=== PATIENT | male | born 1935 | race Caucasian/White ===

== ENCOUNTER 2018-12-27 16:54 | Observation (INO) | payer OTHER ==
[2018-12-27] MEDS ORDERED: NA CHLORIDE 0.9% 500 ML ONE ×2 (17:48→21:25)
[2018-12-27 18:33] LABS: Absolute Lymphocytes (CBC) 0.5 K/uL (0.7-4.9); Basophils % 0.2 % (0-1.3); Hematocrit 44.6 % (39.6-49.0); Lymphocytes % 8.2 % (15.3-44.8); MPV 8.8 fL (7.6-11.3); RBC Red Blood Cell Count 4.93 M/uL (4.33-5.43)
[2018-12-27 18:56] LABS: Albumin 3.6 g/dL (3.4-5.0); Bilirubin Direct 0.2 mg/dL (0-0.2); Bilirubin Total 0.6 mg/dL (0.2-1.0); Potassium 4.2 mmol/L (3.5-5.1); Protein, Total 7.8 g/dL (6.4-8.2)
--- NOTE | 2018-12-27 19:07 | RAD REPORT ---
EXAM DESCRIPTION: RAD - Chest Single View - 12/27/2018 6:27 pm CLINICAL HISTORY: Cough, COPD COMPARISON: June 2018 TECHNIQUE: AP portable chest image was obtained 1813 hours . FINDINGS: No focal mass or consolidation. Chronic interstitial pattern matches comparison. This coul d potentially mask early interstitial edema or infiltrate. Heart and vasculature are normal. No measurable pleural effusion and no pneumothorax. No acute bony abnormality seen. No acute aortic findings suspected. IMPRESSION: No focal lung parenchymal process. Chronic interstitial pattern is similar to comparison but could potentially mask minimal edema or inf iltrate.
[2018-12-27 19:55] LABS: Urine Bacteria 20-50 /HPF (NONE SEEN)
[2018-12-27 19:56] LABS: Urine Amorphous Sediment 2+ /HPF (NONE SEEN); Urine Culture Reflex Order REFLEXED; Urine Mucus 3+ /HPF (NONE SEEN)
[2018-12-27 19:57] LABS: Urine Blood 2+ (NEG); Urine Glucose NEGATIVE (NEG); Urine Protein 2+ (NEG); Urine Specific Gravity 1.025 (1.005-1.030); Urine pH 5.5 (5.0-7.0)
--- NOTE | 2018-12-27 20:05 | RAD REPORT ---
EXAM DESCRIPTION: CT - Head Brain Wo Cont - 12/27/2018 7:40 pm CLINICAL HISTORY: Headache COMPARISON: None. TECHNIQUE: Axial 5 mm thick images of the head were obtained without IV contrast. All CT scans are performed using dose optimization technique as appropriate and may include automated exposure control or mA/KV adjustment according to patient size. FINDINGS: No intracranial hemorrhage, mass, edema or shift of mid-line structures. No acute cortical based infarction. No cortical edema or sulcal effacement. Atrophy and prominent chronic ischemic mary nges are present. Ventricles appear to be in proportion to the amount of volume loss. No abnormal ext ra-axial fluid collections. Mastoid air cells and visualized portions of the paranasal sinuses are clear. No acute bony findings. IMPRESSION: No mass, hemorrhage or acute intracranial finding. Atrophy and chronic ischemic change.
--- NOTE | 2018-12-27 20:09 | RAD REPORT ---
EXAM DESCRIPTION: CT - Abdomen Pelvis W Contrast - 12/27/2018 7:41 pm CLINICAL HISTORY: Abd pain;Nausea / vomiting COMPARISON: CT imaging August 2018 TECHNIQUE: Biphasic, helical CT imaging of the abdomen and pelvis was performed following 100 ml non -ionic IV contrast. Oral contrast was given. All CT scans are performed using dose optimization technique as appropriate and may include automated exposure control or mA/KV adjustment according to patient size. FINDINGS: No suspicious findings in the lung bases. The liver, spleen, and pancreas show no suspicious findings. Gallbladder is absent. Biliary tree is d ilated. This is not substantially different from comparison and may be reservoir effect that can be s een after cholecystectomy. Duct stones can be occult. No duodenal or pancreatic mass evident. Symmetric renal function is seen with no hydronephrosis or suspicious renal mass. No pyelonephritis o r acute parenchymal process. A 3 millimeter cyst upper pole left kidney similar to comparison. No per inephric stranding. No adrenal abnormalities. Urinary bladder is well filled the without mass or wall thickening. Numerous seeds are present from prior prostate cancer treatment. No acute stomach or small bowel finding. Appendix is surgically absent. Patient has prominent sigmoid diverticulosis without acute diverticulitis. No free air, free fluid or inflammatory stranding. No hernia, mass or bulky lymphadenopathy. Bony degenerative changes are present. Prominent arterial tree calcifications are present. IMPRESSION: Patient is status post cholecystectomy. Biliary tree is dilated but not substantially di fferent from August. This may simply be the reservoir effect that can occur after cholecystectomy. Duct stones can be occult. There is no pancreatic or duodenal mass identified. Correlation is needed with any biliary obstructive clinical or laboratory findings. No acute GI or process. Patient has left-sided diverticulosis but no diverticulitis.
--- NOTE | 2018-12-27 20:41 | ER ---
Nurse's Notes [facility] Name: Roger Ho Age: 83 yrs Sex: Male : 1935 Arrival Date: 12/27/2018 Time: 16:56 Bed 18 Private MD: Diagnosis: Dehydration;Weakness;Ataxia, unspecified Presentation: 12/27 16:56 Presenting complaint: EMS states: pt c/o headache, general body weakness, dizziness and ca1 being lethargic since Wednesday. Pt unable to move around as much as he used to. Pt also c/o N/V. Vomited once while with with the EMS. Transition of care: patient was not received from another setting of care. Onset of symptoms was December 25, 2018. Risk Assessment: Do you want to hurt yourself or someone else? Patient reports no desire to harm self or others. Initial Sepsis Screen: Does the patient meet any 2 criteria? No. Patient's initial sepsis screen is negative. Does the patient have a suspected source of infection? No. Patient's initial sepsis screen is negative. Care prior to arrival: Medication(s) given: zofran 4 mg, IV initiated. 20 GA, in the right antecubital area, Glucose check: 160. 16:56 Method Of Arrival: EMS: [facility] ca1 16:56 Acuity: TERESITA 3 ca1 Triage Assessment: 18:50 GI: Reports. ca1 Historical: - Allergies: 17:09 Codeine; ca1 17:09 PENICILLINS; ca1 - Home Meds: 17:09 Symbicort 160-4.5 mcg/actuation inhalation HFAA 2 puffs 2 times per day [Active]; ca1 omeprazole 40 mg Oral cpDR 1 cap once daily [Active]; valsartan 320 mg oral tab 1 tab once daily [Active]; simvastatin 40 mg Oral tab 1 tab once daily [Active]; metoprolol succinate 25 mg oral Tb24 2 tabs once daily [Active]; amlodipine 2.5 mg tab 1 tab once daily [Active]; - PMHx: 17:09 Hyperlipidemia; Hypertension; COPD; ca1 - PSHx: 17:09 Cholecystectomy; Appendectomy; Tonsillectomy; ca1 - Immunization history:: Adult Immunizations up to date. - Social history:: Smoking status: Patient/guardian denies using tobacco. - Ebola Screening: : Patient negative for fever greater than or equal to 101.5 degrees Fahrenheit, and additional compatible Ebola Virus Disease symptoms Patient denies exposure to infectious person Patient denies travel to an Ebola-affected area in the 21 days before illness onset No symptoms or risks identified at this time. - Family history:: not pertinent. - Hospitalizations: : No recent hospitalization is reported. Screenin:11 Abuse screen: Denies threats or abuse. Denies injuries from another. Nutritional ca1 screening: No deficits noted. Tuberculosis screening: No symptoms or risk factors identified. Fall Risk IV access (20 points). Gait- Weak (10 pts.). Assessment: 17:15 General: Appears in no apparent distress. ill, Behavior is calm, cooperative, ca1 appropriate for age. General: Reports chills for feeling ill for > 3 days, fatigue for. Pain: Complains of pain in face, scalp, back, abdomen, right leg and left leg Pain currently is 10 out of 10 on a pain scale. Pain began 2-3 days ago. Neuro: Level of Consciousness is awake, alert, obeys commands, Oriented to person, place, time, situation. Cardiovascular: Heart tones S1 S2 present Capillary refill < 3 seconds Patient's skin is warm and dry. Cardiovascular: Rhythm is sinus rhythm. Respiratory: Airway is patent Respiratory effort is even, unlabored, Respiratory pattern is regular, symmetrical, Breath sounds are clear bilaterally. GI: Abdomen is round non-distended, Bowel sounds present X 4 quads. Abd is soft X 4 quads Abdomen is tender to palpation in left upper quadrant and left lower quadrant. : No deficits noted. No signs and/or symptoms were reported regarding the genitourinary system. EENT: No deficits noted. No signs and/or symptoms were reported regarding the EENT system. Derm: Skin is intact, is healthy with good turgor, Skin is pink, warm \T\ dry. Musculoskeletal: Circulation, motion, and sensation intact. Capillary refill < 3 seconds. 18:02 Reassessment: Patient appears in no apparent distress at this time. Patient and/or ca1 family updated on plan of care and expected duration. Pain level reassessed. Patient is alert, oriented x 3, equal unlabored respirations, skin warm/dry/pink. 18:20 Reassessment: lab at bedside to draw blood. ca1 19:05 Reassessment: Patient appears in no apparent distress at this time. No changes from ca1 previously documented assessment. Patient is alert, oriented x 3, equal unlabored respirations, skin warm/dry/pink. 19:46 Reassessment: Patient appears in no apparent distress at this time. Patient is alert, ca1 oriented x 3, equal unlabored respirations, skin warm/dry/pink. 20:30 Reassessment: Dr. Wiley at bedside. Attempted to ambulate pt, unsuccessful. Pt able to ca1 sit up, but unable to stand. 20:48 Reassessment: Patient appears in no apparent distress at this time. Patient and/or ca1 family updated on plan of care and expected duration. Pain level reassessed. Patient is alert, oriented x 3, equal unlabored respirations, skin warm/dry/pink. 22:03 Reassessment: Patient appears in no apparent distress at this time. Patient is alert, ca1 oriented x 3, equal unlabored respirations, skin warm/dry/pink. Vital Signs: 17:09 BP 178 / 82; Pulse 79; Resp 22; Temp 99.2(O); Pulse Ox 94% on R/A; Weight 104.33 kg ca1 (R); Height 6 ft. 3 in. (190.50 cm) (R); Pain 10/10; 18:02 BP 145 / 72; Pulse 77; Resp 24; Pulse Ox 92% on R/A; ca1 19:05 BP 134 / 73; Pulse 78; Resp 25; Temp 99.2(O); Pulse Ox 92% on R/A; ca1 19:46 BP 138 / 75; Pulse 75; Resp 24 S; Pulse Ox 94% on R/A; ca1 20:50 BP 140 / 78; Pulse 80; Resp 22; Pulse Ox 94% on R/A; ca1 22:03 BP 158 / 82; Pulse 77; Resp 23; Pulse Ox 96% on R/A; ca1 17:09 Body Mass Index 28.75 (104.33 kg, 190.50 cm) ca1 ED Course: 16:56 Patient arrived in ED. ca1 17:04 Triage completed. ca1 17:09 Arm band placed on right wrist. ca1 17:11 Patient has correct armband on for positive identification. Placed in gown. Bed in low ca1 position. Call light in reach. Side rails up X2. log loader helper on. Pulse ox on. NIBP on. Warm blanket given. 17:11 No provider procedures requiring assistance completed. Maintain EMS IV. Dressing ca1 intact. Good blood return noted. Site clean \T\ dry. Gauge \T\ site: G20 RAC. 17:15 Hannah Crews, RN is Primary Nurse. ca1 17:15 Michelet Wiley MD is Attending Physician. rn 17:23 EKG done, by emissions testing technician. reviewed by Michelet Wiley MD. sm3 17:55 Flu and/or RSV swab sent to lab. Missed attempt(s): 20 gauge in left antecubital area. ca1 Bleeding controlled, band aid applied, catheter tip intact. 18:08 Inserted saline lock: 22 gauge in left hand, using aseptic technique. em1 18:13 Radiology exam delayed due to lab results not completed at this time. (BUN/Creatinine) kw1 IV insertion attempt and/or patient not having appropriate IV at this time. 18:23 Radiology exam delayed due to lab results not completed at this time. (BUN/Creatinine). nj 18:27 XRAY Chest (1 view) In Process Unspecified. EDMS 18:49 Urine collected: clean catch specimen, clear, Amount Voided: 20mL. ca1 19:41 CT Head Brain wo Cont In Process Unspecified. EDMS 19:41 CT Abd/Pelvis - IV Contrast Only In Process Unspecified. EDMS 20:40 Tarik Paiz MD is Hospitalizing Provider. rn 20:52 Patient admitted, IV remains in place. ca1 21:26 Hannah Crews RN is Primary Nurse. ca1 Administered Medications: 17:51 Drug: NS 0.9% 500 ml Route: IV; Rate: bolus; Site: right antecubital; ca1 18:43 Follow up: Urine output 20 ml; Response: No adverse reaction; IV Status: Completed ca1 infusion; IV Intake: 500ml 21:27 Drug: NS 0.9% 500 ml Route: IV; Rate: bolus; Site: right antecubital; ca1 22:07 Follow up: Response: No adverse reaction; IV Status: Completed infusion; IV Intake: ca1 500ml Intake: 18:43 IV: 500ml; Total: 500ml. ca1 22:07 IV: 500ml; Total: 1000ml. ca1 Output: 18:43 Urine: 20ml; Total: 20ml. ca1 Outcome: 20:41 Decision to Hospitalize by Provider. rn 22:13 Admitted to Med/surg accompanied by tech, via stretcher, room 232, with chart, Report ca1 called to ELIZABETH Mcdonald 22:13 Condition: stable 22:13 Instructed on the need for admit. 22:39 Patient left the ED. lc1 Signatures: Dispatcher [employer] EDMS Michelet Wiley MD MD rn Kenyon, Eddi vasquez1 Renee Snyder 1 Gary Luther Kimberly 1 Isabel Lyles 3 Hannah Crews RN RN ca1 Corrections: (The following items were deleted from the chart) 18:22 18:21 BP 142 / 73; Pulse 23bpm; Resp 25bpm; Pulse Ox 91% RA; ca1 ca1
--- NOTE | 2018-12-27 20:42 | EDPHYS ---
Physician Documentation [facility] Name: Roger Ho Age: 83 yrs Sex: Male : 1935 Arrival Date: 12/27/2018 Time: 16:56 Bed 18 Private MD: ED Physician Michelet Wiley HPI: 12/27 18:53 This 83 yrs old Male presents to ER via EMS with complaints of rn Nausea/Vomiting. 18:53 The patient presents to the emergency department with nausea, vomiting, abdominal pain. rn Onset: The symptoms/episode began/occurred 2 day(s) ago. Possible causes: unknown. The symptoms are aggravated by nothing. The symptoms are alleviated by nothing. Severity of symptoms: At their worst the symptoms were mild in the emergency department the symptoms are unchanged. The patient has not experienced similar symptoms in the past. Reports headache, nausea/vomiting/abd pain for 2 days, assoc with generalized weakness and malaise, no focal neurological problems, no head injury, no vision changes. reports seemed a little sob lately. No difficulty urinating. No diarrhea.. Historical: - Allergies: 17:09 Codeine; ca1 17:09 PENICILLINS; ca1 - Home Meds: 17:09 Symbicort 160-4.5 mcg/actuation inhalation HFAA 2 puffs 2 times per day [Active]; ca1 omeprazole 40 mg Oral cpDR 1 cap once daily [Active]; valsartan 320 mg oral tab 1 tab once daily [Active]; simvastatin 40 mg Oral tab 1 tab once daily [Active]; metoprolol succinate 25 mg oral Tb24 2 tabs once daily [Active]; amlodipine 2.5 mg tab 1 tab once daily [Active]; - PMHx: 17:09 Hyperlipidemia; Hypertension; COPD; ca1 - PSHx: 17:09 Cholecystectomy; Appendectomy; Tonsillectomy; ca1 - Immunization history:: Adult Immunizations up to date. - Social history:: Smoking status: Patient/guardian denies using tobacco. - Ebola Screening: : Patient negative for fever greater than or equal to 101.5 degrees Fahrenheit, and additional compatible Ebola Virus Disease symptoms Patient denies exposure to infectious person Patient denies travel to an Ebola-affected area in the 21 days before illness onset No symptoms or risks identified at this time. - Family history:: not pertinent. - Hospitalizations: : No recent hospitalization is reported. ROS: 18:53 Constitutional: Negative for fever, chills, and weight loss, Eyes: Negative for injury, rn pain, redness, and discharge, Neck: Negative for injury, pain, and swelling, Cardiovascular: Negative for chest pain, palpitations, and edema, Respiratory: Negative for pleuritic chest pain Abdomen/GI: Negative for diarrhea, and constipation, MS/Extremity: Negative for injury and deformity, Skin: Negative for injury, rash, and discoloration, Neuro: Negative for numbness, tingling, and seizure. Exam: 18:53 Constitutional: This is a well developed, well nourished patient who is awake, alert, rn and in no acute distress. Head/Face: Normocephalic, atraumatic. ENT: MMM Neck: Trachea midline, no thyromegaly or masses palpated, and no cervical lymphadenopathy. Supple, full range of motion without nuchal rigidity, or vertebral point tenderness. No Meningismus. Cardiovascular: Regular rate and rhythm. No pulse deficits. Respiratory: Mild tachypnea with diminished breath sounds at bases Abdomen/GI: soft, + mild tenderness LLQ MS/ Extremity: Pulses equal, no cyanosis. Neurovascular intact. Full, normal range of motion. Equal circumference. Neuro: Awake and alert, GCS 15, oriented to person, place, time, and situation. Cranial nerves II-XII grossly intact. Motor strength 5/5 in all extremities. Sensory grossly intact. Cerebellar exam normal. 19:05 ECG was reviewed by the Attending Physician. rn Vital Signs: 17:09 BP 178 / 82; Pulse 79; Resp 22; Temp 99.2(O); Pulse Ox 94% on R/A; Weight 104.33 kg ca1 (R); Height 6 ft. 3 in. (190.50 cm) (R); Pain 10/10; 18:02 BP 145 / 72; Pulse 77; Resp 24; Pulse Ox 92% on R/A; ca1 19:05 BP 134 / 73; Pulse 78; Resp 25; Temp 99.2(O); Pulse Ox 92% on R/A; ca1 19:46 BP 138 / 75; Pulse 75; Resp 24 S; Pulse Ox 94% on R/A; ca1 20:50 BP 140 / 78; Pulse 80; Resp 22; Pulse Ox 94% on R/A; ca1 22:03 BP 158 / 82; Pulse 77; Resp 23; Pulse Ox 96% on R/A; ca1 17:09 Body Mass Index 28.75 (104.33 kg, 190.50 cm) ca1 MDM: 17:15 Patient medically screened. rn 20:39 Differential diagnosis: Nonspecific abd pain, diverticulitis, viral gastroenteritis, rn gastroenteritis, dehydration, weakness, CVA, vertigo. Data reviewed: vital signs, nurses notes, lab test result(s), EKG, radiologic studies, CT scan, plain films, and as a result, I will admit patient. Counseling: I had a detailed discussion with the patient and/or guardian regarding: the historical points, exam findings, and any diagnostic results supporting the discharge/admit diagnosis, lab results, radiology results, the need for further work-up and treatment in the hospital. Response to treatment: There is no appreciated change of the patient's symptoms at this time, and as a result, I will admit patient. Admission orders: after a detailed discussion of the patient's condition and case, the admit orders are written by me. ED course: No acute findings on w/u in ER, including ct head and abdomen, but attempted to ambulate and fell backward into bed, unable to stand on legs, and reports feels off balance. Will give more fluids and admit to Dr. Paiz for MRI in AM. . 12/27 17:32 Order name: Creatinine for Radiology; Complete Time: 19:25 12/27 17:32 Order name: Basic Metabolic Panel; Complete Time: 19: 12/27 17:32 Order name: CBC with Diff; Complete Time: 19: rn 12/27 17:32 Order name: Hepatic Function; Complete Time: 19:25 rn 12/27 17:32 Order name: Lipase; Complete Time: 19:25 12/27 17:32 Order name: Urine Culture rn 12/27 17:32 Order name: Urine Microscopic Only; Complete Time: 20:18 rn 12/27 17:32 Order name: Flu; Complete Time: 19:25 12/27 17:32 Order name: Blood Culture Adult (2) rn 12/27 17:32 Order name: Procalcitonin; Complete Time: 19: 12/27 18:49 Order name: Urine Dipstick--Ancillary (enter results); Complete Time: 20:18 bd 12/27 21:51 Order name: CBC with Automated Diff EDSD 12/27 21:51 Order name: CBC with Automated Diff EDMS 12/27 21:51 Order name: Comprehensive Metabolic Panel EDSD 12/27 17:32 Order name: IV Saline Lock; Complete Time: 18:15 rn 12/27 17:32 Order name: Labs collected and sent; Complete Time: 18:43 rn 12/27 17:32 Order name: CT Head Brain wo Cont; Complete Time: 20:18 rn 12/27 17:32 Order name: CT Abd/Pelvis - IV Contrast Only; Complete Time: 20:18 rn 12/27 17:32 Order name: Urine Dipstick-Ancillary (obtain specimen); Complete Time: 18:49 rn 12/27 17:32 Order name: XRAY Chest (1 view); Complete Time: 19:25 rn 12/27 18:10 Order name: EKG Electrocardiogram EDSD 12/27 21:51 Order name: CONS Pharmacy Consult EDSD 12/27 21:51 Order name: Regular EDSD 12/27 21:51 Order name: Comprehensive Metabolic Panel EDSD EC:05 Rate is 77 beats/min. Rhythm is regular. QRS [place] is Normal. [place] interval is normal. QRS rn interval is normal. QT interval is normal. No Q waves. T waves are Normal. No ST changes noted. Clinical impression: NSR w/ Non-specific ST/T Changes. Interpreted by me. Reviewed by me. Administered Medications: 17:51 Drug: NS 0.9% 500 ml Route: IV; Rate: bolus; Site: right antecubital; ca1 18:43 Follow up: Urine output 20 ml; Response: No adverse reaction; IV Status: Completed ca1 infusion; IV Intake: 500ml 21:27 Drug: NS 0.9% 500 ml Route: IV; Rate: bolus; Site: right antecubital; ca1 22:07 Follow up: Response: No adverse reaction; IV Status: Completed infusion; IV Intake: ca1 500ml Disposition: 12/27/18 20:41 Hospitalization ordered by Tarik Paiz for Observation. Preliminary diagnosis are Dehydration, Weakness, Ataxia, unspecified. - Bed requested for Telemetry/MedSurg (observation). - Status is Observation. lc1 - Condition is Stable. - Problem is new. - Symptoms are unchanged. UTI on Admission? No Signatures: Dispatcher [employer] EDMS Michelet Wiley MD MD rn Calhoun, Lisa lc1 Kianna Robledo RN RN cg Hannah Crews RN RN ca1 Corrections: (The following items were deleted from the chart) 22:02 20:41 Hospitalization Ordered by Tarik Paiz MD for Observation. Preliminary cg diagnosis is Dehydration; Weakness; Ataxia, unspecified. Bed requested for Telemetry/MedSurg (observation). Status is Observation. Condition is Stable. Problem is new. Symptoms are unchanged. UTI on Admission? No. rn 22:39 22:02 12/27/2018 20:41 Hospitalization Ordered by Tarik Paiz MD for Observation. lc1 Preliminary diagnosis is Dehydration; Weakness; Ataxia, unspecified. Bed requested for Telemetry/MedSurg (observation). Status is Observation. Condition is Stable. Problem is new. Symptoms are unchanged. UTI on Admission? No. cg
[2018-12-27] MEDS ORDERED: ONDANSETRON 4 MG/2 ML VIAL IV PRN (21:48)
[2018-12-27] MEDS: NA CHLORIDE 0.9% 1,000 ML IV SCH (22:53)
[2018-12-27 23:52] LABS: Urine Appearance CLEAR; Urine Bilirubin NEGATIVE (NEG); Urine Blood 2+ (NEG); Urine Color YELLOW; Urine Glucose NEGATIVE (NEG); Urine Protein 1+ (NEG); Urine Specific Gravity >=1.030 (1.005-1.030); Urine pH 5.5 (5.0-7.0)
[2018-12-27 23:58] LABS: Urine Microscopic Reflex ORDER UMIC
[2018-12-28 00:44] LABS: Urine Bacteria <20 /HPF (NONE SEEN); Urine Culture Reflex Order NOT NEEDED; Urine RBC <5 /HPF (NONE SEEN); Urine Urothelial Cells <5 /HPF (NONE SEEN)
[2018-12-28 01:01] VITALS: BMI 28.1
[2018-12-28] MEDS: ACETAMINOPHEN 500 MG TAB PO PRN ×3 (05:44→20:42)
[2018-12-28 05:59] LABS: Absolute Lymphocytes (CBC) 0.6 K/uL (0.7-4.9); Basophils % 0.4 % (0-1.3); Hematocrit 43.3 % (39.6-49.0); Lymphocytes % 11.8 % (15.3-44.8); MPV 8.8 fL (7.6-11.3); RBC Red Blood Cell Count 4.76 M/uL (4.33-5.43)
[2018-12-28 06:15] LABS: Albumin 3.2 g/dL (3.4-5.0); Bilirubin Total 0.6 mg/dL (0.2-1.0); Potassium 3.8 mmol/L (3.5-5.1)
--- NOTE | 2018-12-28 07:24 | EKG ---
Test Date: 2018-12-27 Test Time: 17:17:25 Stunt Person: BRIDGET MEASUREMENT RESULTS: Intervals: Rate: 77 IN: 160 QRSD: 86 QT: 386 QTc: 436 [place]: P: 65 IN: 160 QRS: 70 T: 27 INTERPRETIVE STATEMENTS: Normal sinus rhythm Nonspecific ST abnormality Abnormal ECG Compared to ECG 11/01/2013 11:47:20 ST (T wave) deviation now present Fusion complex(es) no longer present Ventricular premature complex(es) no longer present Electronically Signed On 12-28-18 07:23:32 DATA CONTROL ASSISTANT by Jose Adair
--- NOTE | 2018-12-28 07:37 | P.HP ---
Certification for Inpatient Patient admitted to: Observation With expected LOS: <2 Midnights Patient will require the following post-hospital care: None Practitioner: I am a practitioner with admitting privileges, knowledge of patient current condition, hospital course, and medical plan of care. Services: Services provided to patient in accordance with Admission requirements found in Title 42 Section 412.3 of the Code of Federal Regulations Patient History Date of Service: 12/27/18 Reason for admission: Dehydration and nausea and vomiting with abdominal pain; History of Present Illness: Pt is an 83yo who was admitted to the hospital with abdominal pain, along with intractable nausea and vomiting. Patient has been vomiting for 48hrs(since Wednesday). Patient denies any diarrhea. Patient also with COPD, HTN, dyslipidemia. Patient's Ua revealed questionable UTI. Patient is not really symptomatic. He has not been able the eat or drink much since the nausea and vomiting started. Clinically he is dehydrated although his labs do not correlate with severe dehydration. Will be admitted to hospital for observation. Allergies codeine Allergy (Verified 12/27/18 22:59) Rash Penicillins Allergy (Verified 12/27/18 22:59) Rash Home Medications: Amlodipine [Norvasc*] 1 tab PO DAILY 12/28/18 Aspirin [Aspirin EC 81 MG] 1 tab PO DAILY 12/28/18 Budesonide/Formoterol Fumarate [Symbicort 160-4.5 Mcg Inhaler] 1 puff IH DAILY 12/28/18 Metoprolol Succinate [Toprol Xl*] 1 tab PO BID 12/28/18 Omeprazole [Prilosec] 1 cap PO DAILY 12/28/18 Simvastatin 1 tab PO DAILY 12/28/18 Valsartan 1 tab PO DAILY 12/28/18 - Past Medical/Surgical History Has patient received pneumonia vaccine in the past: Yes Diabetic: No -: High cholesterol -: COPD -: GERD -: HTN -: Cholecystectomy -: Appendectomy -: Tonsillectomy -: Right eye surgery -: Bilateral feet sx -: Bilateral elbows sx -: Back surgery x 2 - Family History Mother Medical History: Cancer Notes: Lung CA Grandparents/aunt /uncles Medical History: Cancer Notes: Grandfather: stomach Cancer - Social History Smoking Status: Former smoker Alcohol use: No CD- Drugs: No Caffeine use: Yes Place of Residence: Home Review of Systems 10-point ROS is otherwise unremarkable Physical Examination - Vital Signs Temperature: 99.5 F Blood Pressure: 154/75 Pulse: 90 Respirations: 18 Pulse Ox (%): 95 - Physical Exam General: Alert, In no apparent distress, Oriented x3 HEENT: Atraumatic, PERRLA, Mucous membr. moist/pink, EOMI, Sclerae nonicteric Neck: Supple, 2+ carotid pulse no bruit, No LAD, Without JVD or thyroid abnormality Respiratory: Clear to auscultation bilaterally, Normal air movement Cardiovascular: Regular rate/rhythm, Normal S1 S2, No murmurs Gastrointestinal: Normal bowel sounds, Soft and benign, Non-distended, No tenderness Musculoskeletal: No clubbing, No swelling, No tenderness Integumentary: No rashes Neurological: Normal gait, Normal speech, Normal strength at 5/5 x4 extr, Normal tone, Sensation intact, Cranial nerves 3-12 intact, Normal affect Lymphatics: No axilla or inguinal lymphadenopathy - Studies Laboratory Data (last 24 hrs) 12/27/18 18:23: WBC 6.3, Hgb 15.7, Hct 44.6, Plt Count 197 12/27/18 18:23: Sodium 135 L, Potassium 4.2, BUN 14, Creatinine 1.20, Glucose 125 H, Total Bilirubin 0.6, AST 25, ALT 22, Alkaline Phosphatase 94, Lipase 96 12/27/18 18:23: Creatinine 1.19 Microbiology Data (last 24 hrs): 12/27/18 17:51 Nasopharnyx Influenza Type A Antigen Screen - Final 12/27/18 17:51 Nasopharnyx Influenza Type B Antigen Screen - Final Assessment & Plan - Problems (Diagnosis) (1) Dehydration Current Visit: Yes Status: Acute (2) Viral gastroenteritis Current Visit: Yes Status: Acute (3) HTN (hypertension) Current Visit: Yes Status: Acute (4) COPD (chronic obstructive pulmonary disease) Current Visit: Yes Status: Acute - Plan PLAN: 1. IVFs 2. Monitor labs 3. Advance diet as tolerated 4. Strict BP and BS control 5. Nebs 6. GI/DVT prophylaxis Discharge Plan: Home Plan to discharge in: 24 Hours - Advance Directives Does patient have a Living Will: Yes Does patient have a Durable POA for Healthcare: Yes - Code Status/Comfort Care Code Status Assessed: Yes Code Status: Full Code Critical Care: No Time Spent Managing PTS Care (In Minutes): 40
[2018-12-28] MEDS: PANTOPRAZOLE 40MG TABLET PO SCH (10:14)
[2018-12-28] MEDS: ASPIRIN EC 81 MG TAB PO SCH (10:14)
[2018-12-28] MEDS: METOPROLOL XL 25 MG TAB PO SCH ×2 (10:14→20:42)
[2018-12-28] MEDS: VALSARTAN 160 MG TAB PO SCH (10:14)
[2018-12-28] MEDS: NA CHLORIDE 0.9% 1,000 ML IV SCH ×2 (11:00→23:01)
[2018-12-28] MEDS ORDERED: ATORVASTATIN 20 MG TAB PO SCH (21:00)
[2018-12-28 23:24] VITALS: O2SAT 91
--- NOTE | 2018-12-29 00:25 | PN ---
Subjective: Patient seen and examined at the bedside with RN. Patient is doing very well. No nausea or vomiting. No diarrhea. He experienced mild weakness. Review of Systems: Ten point ROS is otherwise unremarkable. Physical Examination: Vital Signs: Temperature 97.8, pulse 73, respiratory rate 20, blood pressure 148/74, oxygen saturation 95% on room air. HEENT: Atraumatic. PERRLA. EOMI. Neck: No JVD. Chest: Normal breath sounds. No labored breathing. No wheezing. Heart: Normal S1, S2. Regular rhythm and rate. No murmur. Abdomen: Soft, nontender. Bowel sounds present. Extremities: No edema. No cyanosis. Neuro: Patient awake and alert, oriented x3. Nonfocal. Psych: No depression. Laboratory Data: WBC 5.5, hemoglobin 14.8, platelet 155. Sodium 145, potassium 3.8, calcium 8.2. Assessment And Plan: 1. Viral gastroenteritis. Patient experiencing nausea, vomiting, diarrhea. Continue IV fluid for dehydration. No indication for antibiotics at this moment. 2. Dehydration. Patient experienced diarrhea at home. Diarrhea is resolved. Continue gentle hydration. 3. Hypertension. Blood pressure stable. We will continue to monitor. 4. History of chronic obstructive pulmonary disease, stable. No wheezing. This patient doing very well. We will keep him overnight, likely discharge in morning. QT/MODL Voice ID: [id number] Report ID: [id number] MTDD
[2018-12-29] MEDS ORDERED: CIPROFLOXACIN 400mg IV 400 MG/200 ML BAG IV SCH (09:21)
[2018-12-29] MEDS ORDERED: METRONIDAZOLE 500mg IVPB 500 MG/100 ML BAG IV SCH (09:22)
[2018-12-29] MEDS: METOPROLOL XL 25 MG TAB PO SCH (09:40)
[2018-12-29] MEDS: VALSARTAN 160 MG TAB PO SCH (09:40)
[2018-12-29] MEDS: PANTOPRAZOLE 40MG TABLET PO SCH (09:40)
[2018-12-29] MEDS: ASPIRIN EC 81 MG TAB PO SCH (09:40)
[2018-12-29 13:57] VITALS: BP 135/74; TEMP 99.6
--- NOTE | 2018-12-30 01:24 | DS ---
Date of Discharge: 12/29/2018 Hospital Course: This patient is an 83-year-old gentleman, who presented for nausea, vomiting, and a bdominal pain. He has a history of hypertension, COPD, GERD, hyperlipidemia. The patient had been v omiting for 2 days prior to admission. He started to experience diarrhea after admission. In the ED , vitals are relatively stable, WBC normal. Sodium 135, potassium 4.2, creatinine 1.2. He was admit [facility] for acute gastroenteritis. He was treated with IV fluids. His nausea and vomiting were quickly resolved. No abdominal pain. He started to experience diarrhea with loose bowel movement. I then s tarted IV Cipro and Flagyl. His diarrhea has been slowing down. He is eager to go home. He does no t have much appetite. He is making good urine. I think the patient can be discharged to home with o ral Flagyl and Cipro. He was instructed to take adequate fluid including soup. The patient will fol low up PCP in 1 week. Physical Examination On Discharge: Vital Signs: Temperature 98.3, heart rate 67, blood pressure 135 /74, oxygen saturation 92% on room air. HEENT: PERRLA. EOMI. No JVD. Neck: Supple. Chest: Clear to auscultation. No labored reason. No wheezing. Heart: Normal S1, S2. Regular rhythm and rate. Abdomen: Soft, nontender. Bowel sounds present. Extremities: No edema. No cyanosis. No numbness. Neuro: Patient awake, alert, and oriented x4. Mood stable. Skin: No rashes. Laboratory Data: On discharge, WBC 5.5, hemoglobin 14.8, platelet 155. Sodium 135, potassium 3.8, c reatinine 1.1. Liver enzymes within normal range. Discharge Diagnoses: 1.Viral gastroenteritis. 2.Dehydration. 3.Hypertension. 4.History of chronic obstructive pulmonary disease. 5.Hyperlipidemia. Discharge Diet: As tolerated. Activity: As tolerated. Discharge Medications: Cipro 250 mg b.i.d. for 5 days, Flagyl 500 mg t.i.d. for 5 days. For the res t of the medications, please see home medication list. Discharge Instructions: 1.Please follow up PCP in 1 week. 2.Please call ED if having worsening nausea, vomiting, abdominal pain or diarrhea. I spent about 30 minutes to discharge patient including education, discussion, physical examination, and discharge summary. QT/MODL Voice ID: [id number] Report ID: [id number]
== END 2018-12-29 15:09 ==
LOC: ER 16:54 → ERHOLD 21:53 → INTOOBSV 21:53 → 2ND 22:14
PROVIDERS: ADMIT Hospitalist; ATTEND Hospitalist
DX: A08.4 Viral intestinal infection, unspecified (principal); E86.0 Dehydration; I10 Essential (primary) hypertension; J44.9 Chronic obstructive pulmonary disease, unspecified; E78.5 Hyperlipidemia, unspecified
CPT/HCPCS: 36415; 70450; 71045; 74177; 80048; 80053; 80076; 81003; 81015; 83690; 84145; 85025; 87040; 87086; 87088; 87804; 93005; 96360; 96361; 97112; 97116; 97161; 99285; G0378; J0744; J7030; J7040; Q9967

== ENCOUNTER 2021-03-03 11:12 | Emergency (ER) | payer OTHER ==
--- OUTSIDE RECORDS SUMMARY | 2021-03-03 11:16 | XMS REPORT | Continuity of Care Document ---
:1935 Author Organization [facility] t Address [facility] Jaya Peterson [address] [place] [address] Care Team Providers Name Role Phone GIOVANY ABDI Primary Care Physician Unavailable [place] Attending Clinician Unavailable GIOVANY ABDI Attending Clinician Unavailable July Vigil MD Attending Clinician JULY VIGIL Attending Clinician Unavailable JULY VIGIL Attending Clinician Unavailable Doctor Unassigned, Name Attending Clinician Unavailable Taryn Whyte Admitting Clinician Unavailable [place] Admitting Clinician Unavailable GIOVANY ABDI Admitting Clinician Unavailable Payers Payer Name Policy Type Policy Number Effective Date Expiration Date Brenda ROSENTHAL MEDICARE HMO [id number] 2020 POS 00:00:00 Problems Condition Condition Condition Status Onset Resolution Last Treating Co mments Source Name Details Category Date Date Treatment Clinician Date No known No known Disease Unive rs active active ity of problems problems [facility] Allergies, Adverse Reactions, Alerts Allergy Allergy Status Severity Reaction(s) Onset Inactive Treating Comm ents Source Name Type Date Date Clinician Penicill DA Active WI ITCHING [facility] ins 1-17 Clear 00:00: De [place] Fuente 00 [facility] codeine DA Active WI ITCHING 0 [facility] 1-17 Clear 00:00: [place] 00 [facility] CODEINE Allergy Active Itching 2020-[address] [facility] MEPERIDI Allergy Active Itching 2020-[address] [facility] [facility] MORPHINE Allergy Active Itching 2020-[address] [facility] [facility] OXYCODON Allergy Active Itching 2020-[address] [facility] PENICILL Allergy Active Itching 2020-[address] [place] 2- [facility] TRAMADOL Allergy Active Itching 2020-[address] [facility] CODEINE DRUG Active Med ITCHING 2020- Univers INGREDI 6-11 ity of 00:00: [place] 00 Medical Branch PENICILL Drug Active Med ITCHING 0 Univers INS Class 6-11 ity of 00:00: [place] 00 Medical Branch Codeine Propensi Active Itching 2020-0 Univer s ty to 611 ity of adverse 00:00: [place] reaction 00 Medical s Branch Penicill Propensi Active Itching 0 Unive rs ins ty to 611 ity of adverse 00:00: [place] reaction 00 Medical s Branch NO KNOWN Drug Active Univers ALLERGIE Class ity of S [facility] Social History Social Habit Start Date Stop Date Quantity Comments Source Exposure to Not sure [facility] SARS-CoV-2 (event) Medica l Branch Tobacco use and 2020-07-19 2020-07-19 Never used [facility] exposure 00:00:00 00:00:[address] [facility] Sex Assigned At [birth year] [facility] 00:00:00 00:00:[address] [facility] Smoking Status Start Date Stop Date Source Former smoker 2020-07-19 00:00:00 2020-07-19 00:00:00 [facility] Medications Ordered Filled Start Stop Current Ordering Indication Dosage Frequency Signature Comments Components Source Medication Medication Date Date Medication? Clinician (SIG) Name Name diazePAM Yes [id number] 5mg Take 1 Un cihn (VALIUM) 5 7-12 tablet by ity of mg tablet 00:00: mouth 2 [place] (two) Medical times Branch daily. diazePAM Yes [id number] 5mg Take 1 Un chin (VALIUM) 5 7-12 tablet by ity of mg tablet 00:00: mouth 2 (two) Medical times Branch daily. diazePAM Yes [id number] 5mg Take 1 Un chin (VALIUM) 5 7-12 tablet by ity of mg tablet 00:00: mouth 2 [place] 00 (two) Medical times Branch daily. gadoteridol 2020- No [id number] .2mL/kg 0.2 mL/kg, Univers (PROHANCE-2 7 07-06 Intravenou i ty of 0 mL) 16:00: 16:08 s, ONCE, 1 [place] injection 00 :00 dose, Tue Medic al 0.2 mL/kg 08/13/20 at [facility] h 1100, Routine omeprazole 2020-0 Yes Univers 40 mg 6-08 ity of capsule 00:00: [place] 00 Medical Branch omeprazole 2020-0 Yes Univers 40 mg 6-08 ity of capsule 00:00: [place] [facility] omeprazole 2020-0 Yes Univers 40 mg 6-08 ity of capsule 00:00: [place] [facility] omeprazole 2020-0 Yes Univers 40 mg 6-08 ity of capsule 00:00: [place] [facility] omeprazole 2020-0 Yes Univers 40 mg 6-08 ity of capsule 00:00: [place] [facility] omeprazole 2020-0 Yes Univers 40 mg 6-08 ity of capsule 00:00: [place] 00 Medical Branch omeprazole 2020-0 Yes Univers 40 mg 6-08 ity of capsule 00:00: [place] 00 Medical Branch omeprazole 2020-0 Yes Univers 40 mg 6-08 ity of capsule 00:00: [place] 00 Medical Branch omeprazole 2020-0 Yes Univers 40 mg 6-08 ity of capsule 00:00: [place] 00 Medical Branch valsartan 2020-0 Yes 320mg Take 320 Uni vers 160 mg 6-01 mg by ity of tablet 00:00: mouth [place] 00 daily. Medical Branch valsartan 2020-0 Yes 320mg Take 320 Uni vers 160 mg 6-01 mg by ity of tablet 00:00: mouth [place] 00 daily. Medical Branch valsartan 2020-0 Yes 320mg Take 320 Uni vers 160 mg 6-01 mg by ity of tablet 00:00: mouth [place] 00 daily. Medical Branch valsartan 2020-0 Yes 320mg Take 320 Uni vers 160 mg 6-01 mg by ity of tablet 00:00: mouth [place] 00 daily. Medical Branch valsartan 0 Yes 320mg Take 320 Uni vers 160 mg 6-01 mg by ity of tablet 00:00: mouth [place] 00 daily. Medical Branch valsartan Yes 320mg Take 320 Uni vers 160 mg 6-01 mg by ity of tablet 00:00: mouth [place] 00 daily. Medical Branch valsartan Yes 320mg Take 320 Uni vers 160 mg 6-01 mg by ity of tablet 00:00: mouth 00 daily. Medical Branch valsartan Yes 320mg Take 320 Uni vers 160 mg 6-01 mg by ity of tablet 00:00: mouth [place] 00 daily. Medical Branch valsartan Yes 320mg Take 320 Uni vers 160 mg 6-01 mg by ity of tablet 00:00: mouth 00 daily. Medical Branch gatifloxaci Yes Univer s n 0.5 % 5-03 ity of ophthalmic 00:00: [place] drops 00 Medical Branch gatifloxaci 0 Yes Univer s n 0.5 % 5-03 ity of ophthalmic 00:00: [place] drops 00 Medical Branch gatifloxaci 0 Yes Univer s n 0.5 % 5-03 ity of ophthalmic 00:00: [place] drops 00 Medical Branch gatifloxaci 0 Yes Univer s n 0.5 % 5-03 ity of ophthalmic 00:00: [place] drops 00 Medical Branch gatifloxaci 0 Yes Univer s n 0.5 % 5-03 ity of ophthalmic 00:00: [place] drops 00 Medical Branch gatifloxaci 2020-0 Yes Univer s n 0.5 % 5-03 ity of ophthalmic 00:00: [place] drops 00 Medical Branch gatifloxaci 2020-0 Yes Univer s n 0.5 % 5-03 ity of ophthalmic 00:00: [place] drops 00 Medical Branch gatifloxaci 2020-0 Yes Univer s n 0.5 % 5-03 ity of ophthalmic 00:00: [place] drops 00 Medical Branch gatifloxaci 2020-0 Yes Univer s n 0.5 % 5-03 ity of ophthalmic 00:00: [place] drops 00 Medical Branch simvastatin 2020-0 Yes Univer s 40 mg 4-30 ity of tablet 00:00: [place] 00 Medical Branch simvastatin 2020-0 Yes Univer s 40 mg 4-30 ity of tablet 00:00: [facility] simvastatin 2021-0 Yes Univer s 40 mg 4-30 ity of tablet 00:00: [facility] simvastatin 2021-0 Yes Univer s 40 mg 4-30 ity of tablet 00:00: [facility] simvastatin 2021-0 Yes Univer s 40 mg 4-30 ity of tablet 00:00: [facility] simvastatin 2021-0 Yes Univer s 40 mg 4-30 ity of tablet 00:00: [place] [facility] simvastatin 2021-0 Yes Univer s 40 mg 4-30 ity of tablet 00:00: [place] [facility] simvastatin 2021-0 Yes Univer s 40 mg 4-30 ity of tablet 00:00: [place] [facility] simvastatin 2021-0 Yes Univer s 40 mg 4-30 ity of tablet 00:00: [place] [facility] metoprolol 1-0 Yes 25mg Take 25 mg U nivers succinate 4-11 by mouth 2 ity of XL 25 mg 24 00:00: (two) [place] hr tablet 00 times Medical daily. Branch metoprolol 2020-0 Yes 25mg Take 25 mg U nivers succinate 4-11 by mouth 2 ity of XL 25 mg 24 00:00: (two) [place] hr tablet 00 times Medical daily. Branch metoprolol 2020-0 Yes 25mg Take 25 mg U nivers succinate 4-11 by mouth 2 ity of XL 25 mg 24 00:00: (two) [place] hr tablet 00 times Medical daily. Branch metoprolol 2020-0 Yes 25mg Take 25 mg U nivers succinate 4-11 by mouth 2 ity of XL 25 mg 24 00:00: (two) [place] hr tablet 00 times Medical daily. Branch metoprolol 2020-0 Yes 25mg Take 25 mg U nivers succinate 4-11 by mouth 2 ity of XL 25 mg 24 00:00: (two) [place] hr tablet 00 times Medical daily. Branch metoprolol 1-0 Yes 25mg Take 25 mg U nivers succinate 4-11 by mouth 2 ity of XL 25 mg 24 00:00: (two) [place] hr tablet 00 times Medical daily. Branch metoprolol 2020-0 Yes 25mg Take 25 mg U nivers succinate 4-11 by mouth 2 ity of XL 25 mg 24 00:00: (two) [place] hr tablet 00 times Medical daily. Branch metoprolol 2020-0 Yes 25mg Take 25 mg U nivers succinate 4-11 by mouth 2 ity of XL 25 mg 24 00:00: (two) [place] hr tablet 00 times Medical daily. Branch metoprolol 2020-0 Yes 25mg Take 25 mg U nivers succinate 4-11 by mouth 2 ity of XL 25 mg 24 00:00: (two) [place] hr tablet 00 times Medical daily. Branch hydroCHLORO 2020-0 Yes 25mg Take 25 mg Univers thiazide 25 4-08 by mouth ity of mg tablet 00:00: daily. [place] [facility] hydroCHLORO 2020-0 Yes 25mg Take 25 mg Univers thiazide 25 4-08 by mouth ity of mg tablet 00:00: daily. [place] [facility] hydroCHLORO 2020-0 Yes 25mg Take 25 mg Univers thiazide 25 4-08 by mouth ity of mg tablet 00:00: daily. [place] [facility] hydroCHLORO 2020-0 Yes 25mg Take 25 mg Univers thiazide 25 4-08 by mouth ity of mg tablet 00:00: daily. [place] [facility] hydroCHLORO 2020-0 Yes 25mg Take 25 mg Univers thiazide 25 4-08 by mouth ity of mg tablet 00:00: daily. [place] [facility] hydroCHLORO 2020-0 Yes 25mg Take 25 mg Univers thiazide 25 4-08 by mouth ity of mg tablet 00:00: daily. [place] [facility] hydroCHLORO 2020-0 Yes 25mg Take 25 mg Univers thiazide 25 4-08 by mouth ity of mg tablet 00:00: daily. [place] [facility] hydroCHLORO 2020-0 Yes 25mg Take 25 mg Univers thiazide 25 4-08 by mouth ity of mg tablet 00:00: daily. [address] hydroCHLORO 2020-0 Yes 25mg Take 25 mg Univers thiazide 25 4-08 by mouth ity of mg tablet 00:00: daily. [address] SYMBICORT 2020-0 Yes TAKE 2 Univer s 160-4.5 4-06 PUFFS BY ity of mcg/actuati 00:00: MOUTH [place] on inhaler 00 TWICE A Medica l DAY Branch SYMBICORT 2020-0 Yes TAKE 2 Univer s 160-4.5 4-06 PUFFS BY ity of mcg/actuati 00:00: MOUTH [place] on inhaler 00 TWICE A Medica l DAY Branch SYMBICORT Yes TAKE 2 Univer s 160-4.5 4-06 PUFFS BY ity of mcg/actuati 00:00: MOUTH [place] on inhaler 00 TWICE A Medica l DAY Branch SYMBICORT Yes TAKE 2 Univer s 160-4.5 4-06 PUFFS BY ity of mcg/actuati 00:00: MOUTH [place] on inhaler 00 TWICE A Medica l DAY Branch SYMBICORT Yes TAKE 2 Univer s 160-4.5 4-06 PUFFS BY ity of mcg/actuati 00:00: MOUTH [place] on inhaler 00 TWICE A Medica l DAY Branch SYMBICORT Yes TAKE 2 Univer s 160-4.5 4-06 PUFFS BY ity of mcg/actuati 00:00: MOUTH [place] on inhaler 00 TWICE A Medica l DAY Branch SYMBICORT Yes TAKE 2 Univer s 160-4.5 4-06 PUFFS BY ity of mcg/actuati 00:00: MOUTH [place] on inhaler 00 TWICE A Medica l DAY Branch SYMBICORT Yes TAKE 2 Univer s 160-4.5 4-06 PUFFS BY ity of mcg/actuati 00:00: MOUTH [place] on inhaler 00 TWICE A Medica l DAY Branch SYMBICORT Yes TAKE 2 Univer s 160-4.5 4-06 PUFFS BY ity of mcg/actuati 00:00: MOUTH [place] on inhaler 00 TWICE A Medica l DAY Branch Vital Signs Vital Name Observation Time Observation Value Comments Source HEIGHT 2021-01-10 21:32:00 190.5 cm WEIGHT 2021-01-10 21:32:00 99.791 kg HEIGHT 2021-01-10 21:32:00 190.5 cm WEIGHT 2021-01-10 21:32:00 99.791 kg Systolic blood 2020-08-19 16:17:00 132 mm[Hg] Univer sity [facility] pressure Medical Branch Diastolic blood 2020-08-19 16:17:00 68 [facility]Hg] [facility] Heart rate 2020-08-19 16:17:00 62 /min [facility] [place] [facility] Body weight 2020-08-19 16:17:00 102.967 kg [facility] [place] [facility] BMI 2020-08-19 16:17:00 28.37 kg/m2 [facility] [place] [facility] Systolic blood 2020-07-19 13:33:00 160 mm[Hg] Univer sity of [place] pressure Medical Branch Diastolic blood 2020-07-19 13:33:00 71 mm[Hg] Unive rsity of [place] pressure Medical Branch Heart rate 2020-07-19 13:30:00 62 /min [facility] [place] [facility] Body height 2020-07-19 13:30:00 190.5 cm [facility] [place] [facility] Body weight 2020-07-19 13:30:00 102.967 kg Universi ty [facility] Medical Branch BMI 2020-07-19 13:30:00 28.37 kg/m2 Universi ty [facility] Medical Branch Oxygen saturation 2020-07-19 13:30:00 94 /min [facility] in Arterial blood Medical Br anch by Pulse oximetry Procedures Procedure Date / Time Performing Clinician Source Performed EXTERNAL PROVIDER RECORDS 2020-08-15 05:01:00 Doctor [place], [facility] [place] [facility] MR BRAIN W WO CONTRAST 2020-08-13 16:25:16 Brendan Vigil [facility] MR STROKE ANGIOGRAM HEAD 2020-08-13 16:24:42 Brendan Vigil [facility] WO CONTRAST [facility] Branch MR ANGIOGRAM NECK WO 2020-08-13 15:26:10 Brendan Vigil [facility] CONTRAST Medical Branch NOTICE OF BILLING 2020-08-13 14:03:05 Doctor Rita, [facility] PRACTICES FOR MEDICARE [place] [facility] PATIENTS [facility] PATIENT FINANCIAL 2020-08-13 14:02:47 Doctor Rita, [facility] POLICY [place] [facility] NO SHOW OR MISSED 2020-08-13 14:02:26 Doctor Rita, [facility] APPOINTMENT POLICY [place] [facility] ACKNOWLEDGEMENT NOTICE OF PRIVACY 2020-08-13 14:02:06 Doctor Rita, [facility] PRACTICES [facility] CONSENT/REFUSAL FOR 2020-08-13 14:01:50 Doctor Unassigned, [facility] DIAGNOSIS AND TREATMENT [place] [facility] ASSIGNMENT OF BENEFITS 2020-08-13 14:01:34 [facility]assigned, [facility] [place] [facility] Encounters Start End Encounter Admission Attending Care Care Encounter Source Date/Time Date/Time Type Type Clinicians Facility Department ID 2021-02-24 Inpatient TYREL Putnam, [facility] OUTD [id number] [facility] 10:00:00 Juan Alberto [id number] [facility] 2021-02-26 2021-02-26 Inpatient TYREL Iqballan, [facility] INTE.02 [id number] [facility] 15:18:00 20:00:00 Juan Alberto [id number] [facility] 2021-02-26 2021-02-26 Inpatient TYREL Putnam, [facility] INTE.02 [id number] [facility] 15:18:00 05:36:00 Juan Alberto 67 [facility] 2021-01-10 2021-01-13 Inpatient RON ARLETTE ABDI [facility] Internal [id number] [facility] 21:04:00 13:50:00 Med 2020-08-30 2020-08-30 Telephone Musa [facility] [id number] Univers 00:00:00 00:00:00 Brendan Larson [id number] ity [facility] 4.2.7.2.686 [place] [phone] Nm dicde nal [address] [place] [address] 2020-08-19 2020-08-19 Office Musa [facility] [id number] Univers 10:54:00 12:07:46 Visit Brendan Larson [id number] ity [facility] 4[place]2.7.2.686 [place] [id number] Nm dicmariah nal [address] [place] [address] 2020-08-19 2020-08-19 Outpatient BRENDAN VIGIL [facility] [id number] Univers 11:00:00 11:00:00 [facility] [id number] [facility] 2020-08-192020-08-19 Outpatient BRENDAN CASTELLANOS [facility] [id number] Univers 11:00:00 11:00:00 BRENDAN VIGIL [facility] 2020-08-15 2020-08-15 Orders Doctor VALENCIA [id number] Univers 00:00:00 00:00:00 Only Unassigned, SHEREE [id number] [facility] 4.2.7.2.686 To as [id number] [facility] 009 Branch 2020-08-13 2020-08-13 [facility] [id number] Univers 09:00:32 23:59:00 Encounter Brendan Larson [id number] ity of [place] 4.2.7.[address] [facility] [place] [id number] [facility] 804 Branch 2020-08-13 2020-08-13 [facility] [id number] Univers 09:00:22 23:59:00 Encounter Brendan Garvin [place] [id number] ity of [place] 4.2.7.2.[address] [facility] [place] [id number] [facility] 804 Branch 2020-08-13 2020-08-13 [facility] [id number] Univers 09:00:09 23:59:00 Encounter Brendan Larson [id number] ity of [place] 4.2.7.2.[address] [facility] [place] [id number] [address] 2020-08-13 2020-08-13 Outpatient BRENDAN CASTELLANOS [facility] [id number] Univers 09:30:00 09:30:00 [facility]IGIL [id number] [facility] 2020-08-13 2020-08-13 Outpatient BRENDAN CASTELLANOS [facility] [id number] Univers 00:00:00 00:00:00 BRENDAN VIGIL [facility] 2020-07-19 2020-07-19 [facility] [id number] Univers 08:03:59 09:17:25 Visit Brendan July Marsha [id number] [facility] 4.2.7.2.686 Luisa Carver [id number] Nm dical [address] 2020-07-19 2020-07-19 Outpatient R UMSA, BRENDAN [facility] [id number] [facility] 08:00:00 08:00:00 [facility] Results Test Description Test Time Test Comments Results Result Comments Source ACT-ISTAT 2021-02-26 13:28:00 Test Item Value Reference Range Interpretation Comme nts ACT-ISTAT (test code = ACTI) 309 SEC 74-137 H Performed by certified video camera operator at [facility] Ctr - XR CHEST 1 [id number] 00:00:00 [facility] : 1935 Sex: M FAX: Leonard García MD [phone] [place]: St: ADM FAX: Brenda Landeros MD [phone] FAX: Miguelangel Graves [phone] Name: JOELLEN LUO [facility] : 1935 Age/S: 85/M [address] [place], [place] [address]vd Unit #: [id number] Loc: [place] [address] Phys: Eri Graves Acct: [id number] Dis Date: Status: ADM IN PHONE #: [phone] Exam Date: 02/26/2021 1535 FAX #: [phone] Reason: WATCHMAN EXAMS: CPT CODE: [id number] XR CHEST 1 V 28731 PROCEDURE INFORMATION: Exam: XR Chest Exam date and time: 02/26/2021 3:20 PM Age: 85 years old Clinical indication: Other: Watchman TECHNIQUE: Imaging protocol: XR of the chest. Views: 1 view. COMPARISON: DX XR CHEST 2 V 02/24/2021 10:21 AM FINDINGS: Lungs: There is no evidence of pulmonary consolidation or other sign of active pulmonary disease and there has been no change since the examination February 24, 2021. Pleural spaces: Unremarkable. No pleural effusion. No pneumothorax. Heart/Mediastinum: Unremarkable. No cardiomegaly. Bones/joints: U nremarkable. IMPRESSION: No evidence of active pulmonary disease, other acute findings change since the previous study. at 9781 Reported and signed by: Johnny Sanz M.D. CC: Leonard Whyte MD; Juan Alberto Putnam MD; Miguelangel Graves Technologist: Lydia Arnold RT(R) Trnscrd Date/Time/By: 02/26/2021 (9811) : By: [email or web address] Orig Print D/T: S: 02/26/2021 (7652) PAGE 1 Signed ReportNovel Coronavirus 2018 [id number] 19:52:00 Test Item Value Reference Range Interpretation Comments Novel Coronavirus Negative Negative Positive r esults are 2019 Inhouse (test indicativ e of the presence code = COVNONPUI) ofSARS-CoV -2 RNA, clinical correlation wit h patient historyand othe r diagnostic info rmation is necessary to determinepatien t infection status. Positiv e results do not rule out bacterial infection or co -infection with other viru ses. Negative result s do not preclude SARS-C oV-2 infection andsh ould not be used as the kizzy e basis for patient managementdecis ions. Negative result s must be combined with otherclinical observations, p atient history, and epidemiological information . Detection of SARS-CoV-2 RNA may be affe cted bysample collec tion methods, storag e conditions, and /or stageof infection. Cynthia l RNA mutations, vacc inations, antiviraltherap eutics, antibiotics, chemotherapeuti c orimmunosuppres jacinto drugs have not been e valuated for effectson d etection. Results are for the identification of SARS-CoV-2 RNA usingreal-time (RT) polymerase maeve n reaction (PCR) technolog yfor the qualitative det ection of nucleic acids f rom [id number] v irus and diagnosis of SA RS-CoV-2 virusinfection. It is an Emergency Use Authorization ( EUA) testauthorized by the U.S. FDA. BASIC METABOLIC [id number] 10:43:00 Test Item Value Reference Range Interpretation Comments SODIUM (test code = NA) 142 mEq/L 134-147 N POTASSIUM (test code = 4.4 mEq/L 3.4-5.0 N K) CHLORIDE (test code = 108 mEq/L 100-108 N CL) CARBON DIOXIDE (test 29 mEq/l 21-33 N code = CO2) ANION GAP (test code = 9 0-20 N GAP) GLUCOSE (test code = 101 mg/dL 70-110 N GLU) BLOOD UREA NITROGEN 11 mg/dL 7-18 N (test code = BUN) GLOMERULAR FILTRATION 57.3 70-80 L Units of measure = RATE (test code = GFR) ml/mi n/1.73 m2 CREATININE (test code = 1.2 mg/dL 0.6-1.3 N CREAT) CALCIUM (test code = 9.6 mg/dL 8.0-10.5 N CA) [id number] 10:43:00 Test Item Value Reference Range Interpretation Comments PREALBUMIN (test code = PREALB) 17.9 mg/dL 16.0-40.0 N PROTHROMBIN [id number] 10:21:00 Test Item Value Reference Range Interpretation Comments PROTHROMBIN TIME 12.7 SECONDS 9.3-12.9 N PATIENT (test code = PTP) INTERNATIONAL NORMAL 1.1 0.8-1.2 N TARGET RATIO (test code = INR BY IN DICATION INR) Indication INR1. Prophyl axis of venous thrombos is 2.0 - 3. 0 (orthopedic eva cady), Prophylaxis of venous thrombos is (other than hig h-risk surgery), [place] tment of Deep Vein Thrombosis/Pulm onary Embolism, Preve ntion of systemic emb olism - Tissue heart va lves, Acute Myocardia l Infarction (to prevent systemic embo lism), Valvular heart disease, Atri al Fibrillation, Bileaflet mecha nical valve in aortic position.2. Mec hanical prosthetic valv es (high risk), 2.5 - 3.5 Presence of Lupus Anticoagu lant or Antiphospholi pid Antibodies, Pre vention of systemic e mbolism - Acute Myocard ial Infarction (t o prevent recurre nt infarct). CBC W/AUTO [id number] 10:21:00 Test Item Value Reference Range Interpretation Comments WHITE BLOOD CELL (test code = 7.1 x10 3/uL 4.5-11.0 N WBC) RED BLOOD CELL (test code = 4.54 x10 6/uL 4.00-5.60 N RBC) HEMOGLOBIN (test code = HGB) 13.9 g/dL 12.5-16.9 N HEMATOCRIT (test code = HCT) 43.3 % 37.5-50.7 N MEAN CELL VOLUME (test code = 95.4 fL 81.0-99.0 N MCV) MEAN CELL HGB (test code = MCH) 30.6 pg 27.0-33.0 N MEAN CELL HGB CONCETRATION 32.1 g/dL 33.0-37.0 L (test code = MCHC) RED CELL DISTRIBUTION WIDTH CV 13.2 % 11.5-14.5 N (test code = RDW) RED CELL DISTRIBUTION WIDTH SD 46.1 fL 37.0-54.0 N (test code = RDW-SD) PLATELET COUNT (test code = 355 x10 3/uL 150-400 N PLT) MEAN PLATELET VOLUME (test code 9.8 fL 7.0-9.0 H = MPV) NEUTROPHIL % (test code = NT%) 59.0 % 56.0-77.0 N IMMATURE GRANULOCYTE % (test 0.6 % 0.0-2.0 N code = IG%) LYMPHOCYTE % (test code = LY%) 25.8 % 14.0-32.0 N MONOCYTE % (test code = MO%) 12.5 % 4.8-9.0 H EOSINOPHIL % (test code = EO%) 1.8 % 0.3-3.7 N BASOPHIL % (test code = BA%) 0.3 % 0.0-2.0 N NUCLEATED RBC % (test code = 0.0 % 0-0 N NRBC%) NEUTROPHIL # (test code = NT#) 4.19 x10 3/uL 2.0-7.6 N IMMATURE GRANULOCYTE # (test 0.04 x10 3/uL 0.00-0.03 H code = IG#) LYMPHOCYTE # (test code = LY#) 1.83 x10 3/uL 1.0-3.8 N MONOCYTE # (test code = MO#) 0.89 x10 3/uL 0.1-0.8 H EOSINOPHIL # (test code = EO#) 0.13 x10 3/uL 0.0-0.2 N BASOPHIL # (test code = BA#) 0.02 x10 3/uL 0.0-0.2 N NUCLEATED RBC # (test code = 0.00 x10 3/uL 0.0-0.1 N NRBC#) MANUAL DIFF REQUIRED (test code NO = MDIFF) - XR CHEST 2 [id number] 00:00:00 [place] [facility] : 1935 Sex: M FAX: Leonard García MD [phone] [place]: St: PRE FAX: Brenda Landeros MD [phone] Name: JOELLEN LUO [facility] : 1935ge/S: 85/M [address] [place] [address] Blvd Unit #: [id number] Loc: [place] [address] Phys: Juan Alberto Putnam MD Acct: [id number] Dis Date: Status: PRE SDC PHONE #:[phone] Exam Date: 02/24/2021 1026 FAX #: [phone] Reason: PREOP EXAMS: CPT CODE: [id number] XR CHEST 2 V 48049 PROCEDURE INFORMATION: Exam: XR Chest Exam date and time: 02/24/2021 10:21 AM Age: 85 years old Clinical indication: Pre-operative exam; Respiratory screening exam; Additional info: Preop TECHNIQUE: Imaging protocol: XR of the chest. Views: 2 views. COMPARISON: No relevant prior studies available. FINDINGS: Lungs: No evidence of active pulmonary disease or other pulmonary abnormality. Pleural spaces: Unremarkable. No pleural effusion. No pneumothorax. Heart/Mediastinum: Unremarkable. No cardiomegaly. Bones/joints: Unremarkable. IMPRESSION: No acute findings. at 1034 Reported and signed by: Ruth Bernal C: Leonard Whyte MD; uJan Alberto Putnam MD Technologist: Lydia Arnold RT(R) Trnscrd Date/Time/By: 02/24/2021 (1030) : By: [email or web address] Orig Print D/T: S: 02/24/2021 (8474) PAGE 1 Signed ReportRAD, CHEST, 1 VIEW, NON DEPT 2021-01-13 09:19:00Reason for exam:->pneumoniaShould this be performed at the bedside?->YesCH[facility] : 1935 Sex: MFINAL REPORT Chest, 1 view, 01/13/2021 6:11 AM. History: Pneumonia. Comparison: None available. Discussion: The cardiac silhouette is within normal limits. Bilateralinterstitial and patchy airspace opacities are present. There is no pneumothorax or pleural effusion. The soft tissues and osseous structures are intact. IMPRESSION: Findings suggestive of atypical p neumonia. Signed: Sergio Purvis Verified Date/Time: 01/13/2021 09:19:20 Reading Location:[facility] Radiology Reading Room COMPREHENSIVE METABOLIC PANEL 2021-01-13 05:34:25 Test Item Value Reference Range Interpretation Comments TOTAL PROTEIN 6.7 gm/dL 6.0-8.5 (BEAKER) (test code = 770) ALBUMIN (BEAKER) 3.1 g/dL 3.5-5.0 L (test code = 1145) ALKALINE PHOSPHATASE 71 U/L 30-115 (BEAKER) (test code = 346) BILIRUBIN TOTAL 1.3 mg/dL 0.1-1.2 H (BEAKER) (test code = 377) SODIUM (BEAKER) (test 139 meq/L 135-148 code = 381) POTASSIUM (BEAKER) 3.4 meq/L 3.6-5.5 L (test code = 379) CHLORIDE (BEAKER) 103 meq/L 98-106 (test code = 382) CO2 (BEAKER) (test 23 meq/L 20-29 code = 355) BLOOD UREA NITROGEN 31 mg/dL 10-26 H (BEAKER) (test code = 354) CREATININE (BEAKER) 0.97 mg/dL 0.50-1.20 (test code = 358) GLUCOSE RANDOM 96 mg/dL 70-110 (BEAKER) (test code = 652) CALCIUM (BEAKER) 8.8 mg/dL 8.5-10.5 (test code = 697) AST (SGOT) (BEAKER) 82 U/L 5-40 H (test code = 353) ALT (SGPT) (BEAKER) 47 U/L 5-50 (test code = 347) EGFR (BEAKER) (test 73 mL/min/1.73 ESTIMA TRI GFR IS code = 1092) sq m NOT ACCURATE CREATININE CLEARANCE IN PREDICTING GLOMERULAR FILTRATION RATE . ESTIMATED GFR I S NOT APPLICABLE FOR DIALYSIS PATIEN TS. Aging Room Hand ID - [id number] ID - [id number] ID - TYME74Pkhowbpp ID - TYMZ70Ynohyxob ID - OQGU62Lwfalxhm ID - PNNO45Itmwozah ID - UOLI03Qccndbyq ID - UKKC63Evifxtvj ID - JBUT43Ogvhhugf ID - UYVD24Xjywyfpw ID - NTVF34Fkyjcxte ID - UHRA83Zleizkut ID - XUON29Vgsbrcvm ID - NUBU57Akjdgjwq ID - APIS08Cafsvfwn ID - [id number] 05:33:55 Test Item Value Reference Range Interpretation Comments MAGNESIUM (BEAKER) (test code = 2.6 mg/dL 1.5-3.0 627) Aging Room Hand ID - HROP27Dzvelpln ID - [id number] ID - JKFL33Hevpywkr ID - [id number] CBC W/PLT COUNT & AUTO [id number] 05:12:29 Test Item Value Reference Range Interpretation Comments WHITE BLOOD CELL COUNT (BEAKER) 12.9 K/ L 4.0-10.0 H (test code = 775) RED BLOOD CELL COUNT (BEAKER) 3.93 M/ L 4.20-5.80 L (test code = 761) HEMOGLOBIN (BEAKER) (test code = 12.4 GM/DL 13.0-16.8 L 410) HEMATOCRIT (BEAKER) (test code = 36.3 % 36.0-50.0 411) MEAN CORPUSCULAR VOLUME (BEAKER) 92.4 fL 82.0-99.0 (test code = 753) MEAN CORPUSCULAR HEMOGLOBIN 31.6 pg 27.0-33.0 (BEAKER) (test code = 751) MEAN CORPUSCULAR HEMOGLOBIN CONC 34.2 GM/DL 32.0-36.0 (BEAKER) (test code = 752) RED CELL DISTRIBUTION WIDTH 11.9 % 12.0-15.0 L (BEAKER) (test code = 412) PLATELET COUNT (BEAKER) (test 304 K/CU MM 150-430 code = 756) MEAN PLATELET VOLUME (BEAKER) 11.4 fL 6.0-11.5 (test code = 754) NUCLEATED RED BLOOD CELLS 0 /100 WBC 0-0 (BEAKER) (test code = 413) NEUTROPHILS RELATIVE PERCENT 78 % (BEAKER) (test code = 429) LYMPHOCYTES RELATIVE PERCENT 7 % (BEAKER) (test code = 430) MONOCYTES RELATIVE PERCENT 13 % (BEAKER) (test code = 431) EOSINOPHILS RELATIVE PERCENT 2 % (BEAKER) (test code = 432) BASOPHILS RELATIVE PERCENT 0 % (BEAKER) (test code = 437) NEUTROPHILS ABSOLUTE COUNT 10.07 K/ L 1.80-8.00 H (BEAKER) (test code = 670) LYMPHOCYTES ABSOLUTE COUNT 0.85 K/ L 1.48-4.50 L (BEAKER) (test code = 414) MONOCYTES ABSOLUTE COUNT (BEAKER) 1.68 K/ L 0.00-1.30 H (test code = 415) EOSINOPHILS ABSOLUTE COUNT 0.19 K/ L 0.00-0.50 (BEAKER) (test code = 416) BASOPHILS ABSOLUTE COUNT (BEAKER) 0.02 K/ L 0.00-0.20 (test code = 417) IMMATURE GRANULOCYTES-RELATIVE 1 % 0-0 H PERCENT (BEAKER) (test code = 2801) CREATINE KINASE (CK)2021-01-12 06:19:31 Test Item Value Reference Range Interpretation Comments CREATINE KINASE TOTAL (BEAKER) (test 1605 U/L 40-250 H code = 380) Aging Room Hand ID - [id number] METABOLIC [id number] 06:14:55 Test Item Value Reference Range Interpretation Comments TOTAL PROTEIN 6.8 gm/dL 6.0-8.5 (BEAKER) (test code = 770) ALBUMIN (BEAKER) 3.2 g/dL 3.5-5.0 L (test code = 1145) ALKALINE PHOSPHATASE 58 U/L 30-115 (BEAKER) (test code = 346) BILIRUBIN TOTAL 0.9 mg/dL 0.1-1.2 (BEAKER) (test code = 377) SODIUM (BEAKER) (test 137 meq/L 135-148 code = 381) POTASSIUM (BEAKER) 3.8 meq/L 3.6-5.5 (test code = 379) CHLORIDE (BEAKER) 104 meq/L 98-106 (test code = 382) CO2 (BEAKER) (test 22 meq/L 20-29 code = 355) BLOOD UREA NITROGEN 25 mg/dL 10-26 (BEAKER) (test code = 354) CREATININE (BEAKER) 0.86 mg/dL 0.50-1.20 (test code = 358) GLUCOSE RANDOM 109 mg/dL 70-110 (BEAKER) (test code = 652) CALCIUM (BEAKER) 9.0 mg/dL 8.5-10.5 (test code = 697) AST (SGOT) (BEAKER) 89 U/L 5-40 H (test code = 353) ALT (SGPT) (BEAKER) 45 U/L 5-50 (test code = 347) EGFR (BEAKER) (test 84 mL/min/1.73 ESTIMA TRI GFR IS code = 1092) sq m NOT ACCURATE CREATININE CLEARANCE IN PREDICTING GLOMERULAR FILTRATION RATE . ESTIMATED GFR I S NOT APPLICABLE FOR DIALYSIS PATIEN TS. Aging Room Hand ID - [id number] ID - SQAN93Zydmrubp ID - ZOXL45Bndthhwo ID - YGBS50Fmymocxp ID - YGMO89Mzcrbnfd ID - VQGL08Efbtkzep ID - ODGN37Luqvvrga ID - GGQL37Pdvgmkmp ID - NAGZ83Tekiiosx ID - TGEG05WEHKUTB FUNCTION [id number] 06:14:54 Test Item Value Reference Range Interpretation Comments TOTAL PROTEIN (BEAKER) (test code = 6.8 gm/dL 6.0-8.5 770) ALBUMIN (BEAKER) (test code = 1145) 3.2 g/dL 3.5-5.0 L BILIRUBIN TOTAL (BEAKER) (test code 0.9 mg/dL 0.1-1.2 = 377) BILIRUBIN DIRECT (BEAKER) (test 0.5 mg/dL 0.0-0.4 H code = 706) ALKALINE PHOSPHATASE (BEAKER) (test 58 U/L 30-115 code = 346) AST (SGOT) (BEAKER) (test code = 89 U/L 5-40 H 353) ALT (SGPT) (BEAKER) (test code = 45 U/L 5-50 347) Aging Room Hand ID - [id number] ID - EDMT60Wtgqpzri ID - DECR77Ugtczqzs ID - SQAL25Ervfturc ID - RGRJ33Tncbkdgc ID - QMPH75Cncgmsey ID - [id number] PANEL 2021-01-12 06:14:14 Test Item Value Reference Range Interpretation Comments TRIGLYCERIDES (BEAKER) (test code = 89 mg/dL 540) CHOLESTEROL (BEAKER) (test code = 121 mg/dL 631) HDL CHOLESTEROL (BEAKER) (test code 44 mg/dL = 976) LDL CHOLESTEROL CALCULATED (BEAKER) 59 mg/dL (test code = 633) Triglyceride Reference Range: Low Risk <150 Borderline 150-199 High Risk 200-499 Very High Risk >=500Cholesterol Reference Range: Low Risk <200 Borderline 200-239 High Risk >240HDL Cholesterol Reference Range: Low Risk >=60 High Risk <40LDL Cholesterol Reference Range: Optimal <100 Near Optimal 100-129 Borderline 130-159 High 160-189 Very High >=190 Aging Room Hand ID - [id number] ID - [id number] ID - NYGS53Aqpsncgy ID - FGAR90Rgwtzknu ID - RTDM64Sitaigip ID - ELKZ43REJ W/PLT COUNT & AUTO [id number] 06:10:52 Test Item Value Reference Range Interpretation Comments WHITE BLOOD CELL COUNT (BEAKER) 14.0 K/ L 4.0-10.0 H (test code = 775) RED BLOOD CELL COUNT (BEAKER) 4.18 M/ L 4.20-5.80 L (test code = 761) HEMOGLOBIN (BEAKER) (test code = 13.1 GM/DL 13.0-16.8 410) HEMATOCRIT (BEAKER) (test code = 39.4 % 36.0-50.0 411) MEAN CORPUSCULAR VOLUME (BEAKER) 94.3 fL 82.0-99.0 (test code = 753) MEAN CORPUSCULAR HEMOGLOBIN 31.3 pg 27.0-33.0 (BEAKER) (test code = 751) MEAN CORPUSCULAR HEMOGLOBIN CONC 33.2 GM/DL 32.0-36.0 (BEAKER) (test code = 752) RED CELL DISTRIBUTION WIDTH 12.1 % 12.0-15.0 (BEAKER) (test code = 412) PLATELET COUNT (BEAKER) (test 301 K/CU MM 150-430 code = 756) MEAN PLATELET VOLUME (BEAKER) 11.7 fL 6.0-11.5 H (test code = 754) NUCLEATED RED BLOOD CELLS 0 /100 WBC 0-0 (BEAKER) (test code = 413) NEUTROPHILS RELATIVE PERCENT 75 % (BEAKER) (test code = 429) LYMPHOCYTES RELATIVE PERCENT 8 % (BEAKER) (test code = 430) MONOCYTES RELATIVE PERCENT 16 % (BEAKER) (test code = 431) EOSINOPHILS RELATIVE PERCENT 0 % (BEAKER) (test code = 432) BASOPHILS RELATIVE PERCENT 0 % (BEAKER) (test code = 437) NEUTROPHILS ABSOLUTE COUNT 10.46 K/ L 1.80-8.00 H (BEAKER) (test code = 670) LYMPHOCYTES ABSOLUTE COUNT 1.15 K/ L 1.48-4.50 L (BEAKER) (test code = 414) MONOCYTES ABSOLUTE COUNT (BEAKER) 2.20 K/ L 0.00-1.30 H (test code = 415) EOSINOPHILS ABSOLUTE COUNT 0.05 K/ L 0.00-0.50 (BEAKER) (test code = 416) BASOPHILS ABSOLUTE COUNT (BEAKER) 0.02 K/ L 0.00-0.20 (test code = 417) IMMATURE GRANULOCYTES-RELATIVE 1 % 0-0 H PERCENT (BEAKER) (test code = 2801) PROTHROMBIN [id number] 06:09:11 Test Item Value Reference Range Interpretation Comments PROTIME (BEAKER) 10.9 seconds 9.3-12.0 Final Infor mation (test code = 759) (Auto Outp ut) INR (BEAKER) (test 0.98 See_Comment Final Inf ormation code = 370) (Auto Output) [Automated mess age] The system [employer] generated this result transmitted ref erence range: <=5.90. The reference range was not used to int erpret this result as normal/abnormal . RECOMMENDED COUMADIN/WARFARIN INR THERAPY RANGESSTANDARD DOSE: 2.0 - 3.0 Includes: PROPHYLAXIS forvenous thrombosis, systemic embolization; TREATMENT for venous thrombosis and/or pulmonary embolus.HIGH RISK: Target INR is 2.5-3.5 for patients with mechanical heart valves.CT, ABDOMEN, WITHOUT [id number] 00:11:00Unlisted Reason for Exam - Click Yes and Enter Reason Below- >YesUnlisted Reason for Exam->postop (spine surgery) ileusWill this procedure require oral contrast?->No [facility] 1935 Sex: MFINAL REPORT EXAM/TECHNIQUE: CT of the abdomen without contrast. Dose modulation, iterative reconstruction, and/or weight based adjustment of the mA/kV was utilized toreduce the radiation dose to as low as reasonably achievable. INDICATION: Bowel obstruction. Recent surgery. COMPARISON: None. FINDINGS: Lower thorax: Small bilateral pleural effusions. Left lower lobe consolidation and nodular opacities are suspicious for aspiration. Liver: Unremarkable. Biliary: The gallbladder surgically absent. Unremarkable appearance of the biliary ducts. Spleen: Unremarkable. Pancreas: Unremarkable. Adrenals: Unremarkable. Kidneys: Symmetric bilateral nephrograms. No hydroneph rosis. No focal renal mass. Bowel: Normal appearance of the colon. Appendix is normal in appearance.The small bowel and stomach are normal in appearance without findings of obstruction. Lymph nodes: No lymphadenopathy by size criteria. Mesentery: No ascites. No pneumoperitoneum. Small volume of air is present in the retroperitoneum and within the right psoas muscles as well as along the left superficial abdominal wall. Vessels: Unremarkable. Osseous: No acute osseous process. No suspicious osseous lesions. Status post L2-L4 posterior fusion with spinous process reduction at L3. Fluid and air collection is present posterior to the surgical site. Impression: 1. No findings of bowel obstruction or ileus. 2. Postsurgical changes of posterior fusion and decompression with a posterior epidural fluid and air collection likely representing postoperative seroma. Additionally there is air in the retroperi toneum, right psoas muscle, and left abdominal wall. Signed: Michael Thomson MDReport Verified Date/Time: 01/12/2021 00:11:52 [id number] 13:07:34 Test Item Value Reference Range Interpretation Comments MAGNESIUM (BEAKER) (test code = 2.4 mg/dL 1.5-3.0 627) Aging Room Hand ID - DSENSONOperator ID - DSENSONOperator ID - DSENSONOperator ID - DSENSONRAD, ABDOMEN/KUB 1 VIEW [id number] 11:11:00Reason for exam:->BOWEL [facility]CTION[facility] : 1935 Sex: MFINAL REPORT ONE VIEW ABDOMEN HISTORY: Bowel destruction COMPARISON :None FINDINGS: 2 supine AP images of the abdomen were obtained. Nasogastric tube tip is in the region of the body of the stomach. There is gas in nondilated stomach. There are postoperative changes inthe lumbar spine. Some surgical chauncey overlie this. There is gas in several nondilated small bowelloops as well as in portions of nondilated large intestine. Given the evidence of recent surgery, these changes may reflect mild adynamic ileus. No dilated loops of large or small intestine are identified. The lung bases appear clear. Signed: Leonard Grissom MDReport Verified Date/Time: 01/11/2021 11:11:07 Reading Location: [address] Transitional Reading Room CREATINE KINASE (CK)2021-01-11 10:39:24 Test Item Value Reference Range Interpretation Comments CREATINE KINASE TOTAL (BEAKER) (test 3381 U/L 40-250 H code = 380) Aging Room Hand ID - DSENSONTROPONIN [id number] 07:53:32 Test Item Value Reference Range Interpretation Comments TROPONIN I (BEAKER) (test code = 0.36 ng/mL 0.00-0.15 HH 397) Troponin I (TnI) levels must be interpreted in the context of the presenting symptoms and the clinical findings. Elevated TnI levels indicate myocardial damage, but are not specific for ischemic heart disease. Elevated TnI levels are seen in patients with other cardiac conditions (including myocarditis and congestive heart failure), and slight TnI elevations occur in patients with other conditions, including sepsis, renal failure, acidosis, acute neurological disease, and persistent tachyarrhythmia.Aging Room Hand ID - DSENSONCBC W/PLT COUNT & AUTO [id number] 07:42:27 Test Item Value Reference Range Interpretation Comments WHITE BLOOD CELL COUNT (BEAKER) 10.4 K/ L 4.0-10.0 H (test code = 775) RED BLOOD CELL COUNT (BEAKER) 3.93 M/ L 4.20-5.80 L (test code = 761) HEMOGLOBIN (BEAKER) (test code = 12.3 GM/DL 13.0-16.8 L 410) HEMATOCRIT (BEAKER) (test code = 37.0 % 36.0-50.0 411) MEAN CORPUSCULAR VOLUME (BEAKER) 94.1 fL 82.0-99.0 (test code = 753) MEAN CORPUSCULAR HEMOGLOBIN 31.3 pg 27.0-33.0 (BEAKER) (test code = 751) MEAN CORPUSCULAR HEMOGLOBIN CONC 33.2 GM/DL 32.0-36.0 (BEAKER) (test code = 752) RED CELL DISTRIBUTION WIDTH 12.2 % 12.0-15.0 (BEAKER) (test code = 412) PLATELET COUNT (BEAKER) (test 210 K/CU MM 150-430 code = 756) MEAN PLATELET VOLUME (BEAKER) 12.0 fL 6.0-11.5 H (test code = 754) NUCLEATED RED BLOOD CELLS 1 /100 WBC 0-0 H (BEAKER) (test code = 413) NEUTROPHILS RELATIVE PERCENT 76 % (BEAKER) (test code = 429) LYMPHOCYTES RELATIVE PERCENT 9 % (BEAKER) (test code = 430) MONOCYTES RELATIVE PERCENT 14 % (BEAKER) (test code = 431) EOSINOPHILS RELATIVE PERCENT 1 % (BEAKER) (test code = 432) BASOPHILS RELATIVE PERCENT 0 % (BEAKER) (test code = 437) NEUTROPHILS ABSOLUTE COUNT 7.85 K/ L 1.80-8.00 (BEAKER) (test code = 670) LYMPHOCYTES ABSOLUTE COUNT 0.91 K/ L 1.48-4.50 L (BEAKER) (test code = 414) MONOCYTES ABSOLUTE COUNT (BEAKER) 1.48 K/ L 0.00-1.30 H (test code = 415) EOSINOPHILS ABSOLUTE COUNT 0.08 K/ L 0.00-0.50 (BEAKER) (test code = 416) BASOPHILS ABSOLUTE COUNT (BEAKER) 0.01 K/ L 0.00-0.20 (test code = 417) IMMATURE GRANULOCYTES-RELATIVE 0 % 0-0 PERCENT (BEAKER) (test code = 2801) (MANUAL DIFFERENTIAL)2021-01-11 07:42:27 Test Item Value Reference Range Interpretation Comments TOTAL COUNTED (BEAKER) (test code = 1351) WBC MORPHOLOGY (BEAKER) (test code = Normal 487) RBC MORPHOLOGY (BEAKER) (test code = Normal 762) GIANT PLATELETS (BEAKER) (test code = Present 313) CREATINE KINASE (CK)2021-01-11 07:39:40 Test Item Value Reference Range Interpretation Comments CREATINE KINASE TOTAL (BEAKER) (test 3034 U/L 40-250 H code = 380) Aging Room Hand ID - DSENSONHEPATIC FUNCTION [id number] 07:30:25 Test Item Value Reference Range Interpretation Comments TOTAL PROTEIN (BEAKER) 6.1 gm/dL 6.0-8.5 Speci men slightly (test code = 770) hemolyzed ALBUMIN (BEAKER) (test 3.0 g/dL 3.5-5.0 L Speci men slightly code = 1145) hemolyzed BILIRUBIN TOTAL 0.7 mg/dL 0.1-1.2 Specimen sli ghtly (BEAKER) (test code = hemoly zed 377) BILIRUBIN DIRECT 0.3 mg/dL 0.0-0.4 Specimen sl ightly (BEAKER) (test code = hemoly zed 706) ALKALINE PHOSPHATASE 52 U/L 30-115 (BEAKER) (test code = 346) AST (SGOT) (BEAKER) 78 U/L 5-40 H Specimen slightly (test code = 353) hemolyzed ALT (SGPT) (BEAKER) 34 U/L 5-50 Specimen slightly (test code = 347) hemolyzed Aging Room Hand ID - [id number] ID - ZBEW18Bijbmnpm ID - KXOL91Ldvqpjih ID - YIMV67Bcnyjoge ID - JQVF39Efodyfxl ID - DSENSONOperator ID - DSENSON COMPREHENSIVE METABOLIC [id number] 07:30:24 Test Item Value Reference Range Interpretation Comments TOTAL PROTEIN 6.1 gm/dL 6.0-8.5 Specimen sligh tly (BEAKER) (test code = hemoly zed 770) ALBUMIN (BEAKER) 3.0 g/dL 3.5-5.0 L Specimen sl ightly (test code = 1145) hemolyzed ALKALINE PHOSPHATASE 52 U/L 30-115 (BEAKER) (test code = 346) BILIRUBIN TOTAL 0.7 mg/dL 0.1-1.2 Specimen sli ghtly (BEAKER) (test code = hemoly zed 377) SODIUM (BEAKER) (test 139 meq/L 135-148 code = 381) POTASSIUM (BEAKER) 3.6 meq/L 3.6-5.5 Specimen slightly (test code = 379) hemolyzed CHLORIDE (BEAKER) 103 meq/L 98-106 (test code = 382) CO2 (BEAKER) (test 21 meq/L 20-29 code = 355) BLOOD UREA NITROGEN 33 mg/dL 10-26 H (BEAKER) (test code = 354) CREATININE (BEAKER) 1.18 mg/dL 0.50-1.20 Specimen slightly (test code = 358) hemolyzed GLUCOSE RANDOM 110 mg/dL 70-110 (BEAKER) (test code = 652) CALCIUM (BEAKER) 8.5 mg/dL 8.5-10.5 (test code = 697) AST (SGOT) (BEAKER) 78 U/L 5-40 H Specimen slightly (test code = 353) hemolyzed ALT (SGPT) (BEAKER) 34 U/L 5-50 Specimen slightly (test code = 347) hemolyzed EGFR (BEAKER) (test 58 mL/min/1.73 ESTIMA TRI GFR IS code = 1092) sq m NOT ACCURATE CREATININE CLEARANCE IN PREDICTING GLOMERULAR FILTRATION RATE . ESTIMATED GFR I S NOT APPLICABLE FOR DIALYSIS PATIEN TS. Aging Room Hand ID - [id number] ID - LWTT87Odidhhoi ID - DWAN56Orznhxoy ID - WZIP68Ifugpzyf ID - LPDY79Zaggshze ID - BQSN55Kjwocdcy ID - VRRM10Atxzirxo ID - MYRQ56Nkhprryz ID - OEWS57Ibjyzjya ID - ORUU91SHTYF [id number] 07:29:44 Test Item Value Reference Range Interpretation Comments TRIGLYCERIDES (BEAKER) 83 mg/dL Speci men slightly (test code = 540) hemolyzed CHOLESTEROL (BEAKER) 102 mg/dL Specime n slightly (test code = 631) hemolyzed HDL CHOLESTEROL (BEAKER) 48 mg/dL (test code = 976) LDL CHOLESTEROL 37 mg/dL CALCULATED (BEAKER) (test code = 633) Triglyceride Reference Range: Low Risk <150 Borderline 150-199 High Risk 200-499 Very High Risk >=500Cholesterol Reference Range: Low Risk <200 Borderline 200-239 High Risk >240HDL Cholesterol Reference Range: Low Risk >=60 High Risk <40LDL Cholesterol Reference Range: Optimal <100 Near Optimal 100-129 Borderline 130-159 High 160-189 Very High >=190 Aging Room Hand ID - ZUTG34Xyzzhoxc ID - MOLP58Lzlfdnmq ID - QNPH97Ehmphgmu ID - XICJ60Nndiurhi ID - QEMA32Kaeshdnw ID - DSENSONPROTHROMBIN TIME/INR 2021-01-11 07:18:59 Test Item Value Reference Range Interpretation Comments PROTIME (BEAKER) 10.9 seconds 9.3-12.0 Final Infor mation (test code = 759) (Auto Outp ut) INR (BEAKER) (test 0.98 See_Comment Final Inf ormation code = 370) (Auto Output) [Automated mess age] The system [employer] generated this result transmitted ref erence range: <=5.90. The reference range was not used to int erpret this result as normal/abnormal . RECOMMENDED COUMADIN/WARFARIN INR THERAPY RANGESSTANDARD DOSE: 2.0 - 3.0 Includes: PROPHYLAXIS forvenous thrombosis, systemic embolization; TREATMENT for venous thrombosis and/or pulmonary embolus.HIGH RISK: Target INR is 2.5-3.5 for patients with mechanical heart valves.CBC W/PLT COUNT & AUTO DIFFERENTIAL 2021-01-11 06:38:05 Test Item Value Reference Range Interpretation Comments WHITE BLOOD CELL COUNT (BEAKER) 11.1 K/ L 4.0-10.0 H (test code = 775) RED BLOOD CELL COUNT (BEAKER) 4.03 M/ L 4.20-5.80 L (test code = 761) HEMOGLOBIN (BEAKER) (test code = 12.6 GM/DL 13.0-16.8 L 410) HEMATOCRIT (BEAKER) (test code = 38.1 % 36.0-50.0 411) MEAN CORPUSCULAR VOLUME (BEAKER) 94.5 fL 82.0-99.0 (test code = 753) MEAN CORPUSCULAR HEMOGLOBIN 31.3 pg 27.0-33.0 (BEAKER) (test code = 751) MEAN CORPUSCULAR HEMOGLOBIN CONC 33.1 GM/DL 32.0-36.0 (BEAKER) (test code = 752) RED CELL DISTRIBUTION WIDTH 12.4 % 12.0-15.0 (BEAKER) (test code = 412) PLATELET COUNT (BEAKER) (test 253 K/CU MM 150-430 code = 756) MEAN PLATELET VOLUME (BEAKER) 12.0 fL 6.0-11.5 H (test code = 754) NUCLEATED RED BLOOD CELLS 0 /100 WBC 0-0 (BEAKER) (test code = 413) NEUTROPHILS RELATIVE PERCENT 78 % (BEAKER) (test code = 429) LYMPHOCYTES RELATIVE PERCENT 8 % (BEAKER) (test code = 430) MONOCYTES RELATIVE PERCENT 14 % (BEAKER) (test code = 431) EOSINOPHILS RELATIVE PERCENT 1 % (BEAKER) (test code = 432) BASOPHILS RELATIVE PERCENT 0 % (BEAKER) (test code = 437) NEUTROPHILS ABSOLUTE COUNT 8.59 K/ L 1.80-8.00 H (BEAKER) (test code = 670) LYMPHOCYTES ABSOLUTE COUNT 0.85 K/ L 1.48-4.50 L (BEAKER) (test code = 414) MONOCYTES ABSOLUTE COUNT (BEAKER) 1.51 K/ L 0.00-1.30 H (test code = 415) EOSINOPHILS ABSOLUTE COUNT 0.05 K/ L 0.00-0.50 (BEAKER) (test code = 416) BASOPHILS ABSOLUTE COUNT (BEAKER) 0.02 K/ L 0.00-0.20 (test code = 417) IMMATURE GRANULOCYTES-RELATIVE 0 % 0-0 PERCENT (BEAKER) (test code = 2801) TROPONIN [id number] 05:40:58 Test Item Value Reference Range Interpretation Comments TROPONIN I (BEAKER) (test code = 0.36 ng/mL 0.00-0.15 HH 397) Troponin I (TnI) levels must be interpreted in the context of the presenting symptoms and the clinical findings. Elevated TnI levels indicate myocardial damage, but are not specific for ischemic heart disease. Elevated TnI levels are seen in patients with other cardiac conditions (including myocarditis and congestive heart failure), and slight TnI elevations occur in patients with other conditions, including sepsis, renal failure, acidosis, acute neurological disease, and persistent tachyarrhythmia.Aging Room Hand ID - [id number] KINASE (CK) 2021-01-11 05:30:58 Test Item Value Reference Range Interpretation Comments CREATINE KINASE TOTAL (BEAKER) (test 2833 U/L 40-250 H code = 380) Aging Room Hand ID - [id number] FUNCTION [id number] 05:04:02 Test Item Value Reference Range Interpretation Comments TOTAL PROTEIN (BEAKER) (test code = 6.1 gm/dL 6.0-8.5 770) ALBUMIN (BEAKER) (test code = 1145) 3.0 g/dL 3.5-5.0 L BILIRUBIN TOTAL (BEAKER) (test code 0.8 mg/dL 0.1-1.2 = 377) BILIRUBIN DIRECT (BEAKER) (test 0.5 mg/dL 0.0-0.4 H code = 706) ALKALINE PHOSPHATASE (BEAKER) (test 48 U/L 30-115 code = 346) AST (SGOT) (BEAKER) (test code = 67 U/L 5-40 H 353) ALT (SGPT) (BEAKER) (test code = 33 U/L 5-50 347) Aging Room Hand ID - [id number] ID - [id number] ID - [id number] ID - [id number] ID - [id number] ID - [id number] ID - [id number] METABOLIC [id number] 05:04:02 Test Item Value Reference Range Interpretation Comments TOTAL PROTEIN 6.1 gm/dL 6.0-8.5 (BEAKER) (test code = 770) ALBUMIN (BEAKER) 3.0 g/dL 3.5-5.0 L (test code = 1145) ALKALINE PHOSPHATASE 48 U/L 30-115 (BEAKER) (test code = 346) BILIRUBIN TOTAL 0.8 mg/dL 0.1-1.2 (BEAKER) (test code = 377) SODIUM (BEAKER) (test 140 meq/L 135-148 code = 381) POTASSIUM (BEAKER) 3.7 meq/L 3.6-5.5 (test code = 379) CHLORIDE (BEAKER) 104 meq/L 98-106 (test code = 382) CO2 (BEAKER) (test 22 meq/L 20-29 code = 355) BLOOD UREA NITROGEN 32 mg/dL 10-26 H (BEAKER) (test code = 354) CREATININE (BEAKER) 1.21 mg/dL 0.50-1.20 H (test code = 358) GLUCOSE RANDOM 122 mg/dL 70-110 H (BEAKER) (test code = 652) CALCIUM (BEAKER) 8.5 mg/dL 8.5-10.5 (test code = 697) AST (SGOT) (BEAKER) 67 U/L 5-40 H (test code = 353) ALT (SGPT) (BEAKER) 33 U/L 5-50 (test code = 347) EGFR (BEAKER) (test 57 mL/min/1.73 ESTIMA TRI GFR IS code = 1092) sq m NOT ACCURATE CREATININE CLEARANCE IN PREDICTING GLOMERULAR FILTRATION RATE . ESTIMATED GFR I S NOT APPLICABLE FOR DIALYSIS PATIEN TS. Aging Room Hand ID - [id number] ID - [id number] ID - [id number] ID - [id number] ID - [id number] ID - [id number] ID - [id number] ID - [id number] ID - [id number] ID - [id number] 05:03:21 Test Item Value Reference Range Interpretation Comments TRIGLYCERIDES (Gamma BasicsAKER) (test code = 82 mg/dL 540) CHOLESTEROL (Gamma BasicsAKER) (test code = 99 mg/dL 631) HDL CHOLESTEROL (Gamma BasicsAKER) (test code 40 mg/dL = 976) LDL CHOLESTEROL CALCULATED ([employer]) 43 mg/dL (test code = 633) Triglyceride Reference Range: Low Risk <150 Borderline 150-199 High Risk 200-499 Very High Risk >=500Cholesterol Reference Range: Low Risk <200 Borderline 200-239 High Risk >240HDL Cholesterol Reference Range: Low Risk >=60 High Risk <40LDL Cholesterol Reference Range: Optimal <100 Near Optimal 100-129 Borderline 130-159 High 160-189 Very High >=190 Aging Room Hand ID - [id number] ID - [id number] ID - [id number] ID - [id number] ID - [id number] ID - [id number] TIME/INR 2021-01-11 04:36:27 Test Item Value Reference Range Interpretation Comments PROTIME (BEAKER) 11.3 seconds 9.3-12.0 Final Infor mation (test code = 759) (Auto Outp ut) INR (BEAKER) (test 1.02 See_Comment Final Inf ormation code = 370) (Auto Output) [Automated mess age] The system [employer] generated this result transmitted ref erence range: <=5.90. The reference range was not used to int erpret this result as normal/abnormal . RECOMMENDED COUMADIN/WARFARIN INR THERAPY RANGESSTANDARD DOSE: 2.0 - 3.0 Includes: PROPHYLAXIS forvenous thrombosis, systemic embolization; TREATMENT for venous thrombosis and/or pulmonary embolus.HIGH RISK: Target INR is 2.5-3.5 for patients with mechanical heart valves.MR BRAIN W WO [id number] 19:35:33 No acute intracranial abnormality. Moderate chronic microvascular ischemic changes. No flow-limiting intracranial stenosis seen within the limitations oftechnique. The visualized cervical vessels arepatent noting that aortic arch andproximal great vessels are excluded from the [id number]. Preliminary Report Dictated by Resident: Rigo Fuchs MD., have reviewed this study and agree with theabove report.MR STROKE ANGIOGRAM HEAD WO CONTRAST, MR ANGIOGRAM NECK WO CONTRAST, MRBRAIN W WO CONTRAST COMPARISON: None. 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 Consider posteriorcirculation. TECHNIQUE: 1.5 Sarah multiplanar multiweighted MRI of brain prior to andafter intravenous contrast administration. Time of flight MRA of the circleof olsen and neck was obtained without contrast. Contrast: 20 mL ofProhance intravenous. FINDINGS: MRI BRAIN: The ventricles and cerebral sulci are prominent but appropriate forpatient's age. No midline shift, hydrocephalus or pathological extra-axialfluid collection is present. The basal cisterns are unremarkable. No restricted diffusion is present to suggest acute infarct. Diffuseconfluent T2/FLAIR hyperintensities are demonstrated in the deepbihemispheric white matter and kip, likely reflecting moderatemicrovascular ischemic changes. No abnormal gradient blooming. No abnormalintracranial enhancement. The T2 flow voids for the major intracranial vessels are unremarkable. Noabnormal fluid signal is present in the left mastoid air cells. Mucosalthickening of the left frontal sinus and anterior ethmoidal air cells.Trace fluid signal in the right mastoid air cells. The paranasal sinusesare otherwise clear. MRA NECK: Imagesare severely degraded by motion artifacts.The origins of the greater arch vessels are not visualized. Within limits of the evaluation the common carotid arteries are patent.The carotid bulbs/ICA origins are patent without high-grade stenosis seenat bifurcation.The vertebral arteries are patent. MRA [place] OF OLSEN: Images degraded by motion artifact.Left PICA origin is normally visualized. Right PICA AICA complex issuspected. The basilar artery is normal in caliber. The superior cerebellararteriesare patent. The posterior cerebral arteries appear grossly patentwithin limitations of technique. Left P-comm seen. No definite right P- commseen. The distal cervical, petrous, cavernous and supraclinoid internal carotidarteries are patent. The anterior and middle cerebral arteries are patent.An anterior communicating artery is visualized. 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 Consider posteriorcirculation. TECHNIQUE: 1.5 Sarah multiplanar multiweighted MRI of brain prior to andafter intravenous contrast administration. Time of flight MRA of the circleof olsen and neck was obtained without contrast. Contrast: 20 mL ofProhance intravenous. FINDINGS:MRI BRAIN:The ventricles and cerebral sulci are prominent but appropriate forpatient's age. No midline shift, hydrocephalus or pathological extra-axialfluid collection is present. The basal cisterns are unremarkable.No restricted diffusion is present to suggest acute infarct. Diffuseconfluent T2/FLAIR hyperintensities are demonstrated in the deepbihemispheric white matter and kip, likely reflecting moderatemicrovascular ischemic changes. No abnormal gradient blooming. No abnormalintracranial enhancement.The T2 flow voids for the major intracranial vessels are unremarkable. Noabnormal fluid signal is present in the left mastoid air cells. Mucosalthickening of the left frontal sinus and anterior ethmoidal air cells.Trace fluid signal in the right mastoid air cells. The paranasal sinusesare otherwise clear.MRA NECK:Images are severely degraded by motion artifacts.The origins of the greater arch vessels are not visualized.Within limits of the evaluation the common carotid arteries are patent.The carotid bulbs/ICA origins are patent without high-grade stenosis seenat bifurcation.The vertebral arteries are patent. MRA [place] OF OLSEN:Images degraded by motion artifact.Left PICA origin is normally visualized. Right PICA AICA complex issuspected. The basilar artery is normal in caliber. The superior cerebellarart eries are patent. The posterior cerebral arteries appear grossly patentwithin limitations of technique. Left P-comm seen. No definite right P-commseen.The distal cervical, petrous, cavernous and supraclinoid internal carotidarteries are patent. The anterior and middle cerebral arteries are patent.An anterior communicating artery is visualized.IMPRESSIONNo acute intracranial abnormality.Moderate chronic microvascular ischemic changes.No flow-limiting intracranial stenosis seen within the limitations oftechnique. The visualized cervical vessels are patent noting that aortic arch andproximal great vessels are excluded from the [id number].Preliminary Report Dictated by Resident: Rigo Lynch MD., have reviewed this study and agree with theabove report.[facility] WO [id number] 19:35:33 No acute intracranial abnormality. Moderate chronic microvascular ischemic changes. No flow-limiting intracranial stenosis seen within the limitations oftechnique. The visualized cervical vessels are patent noting that aortic arch andproximal great vessels are excluded from the [id number]. Preliminary Report Dictated by Resident: Rigo Fuchs MD., have reviewed this study and agree with theabove report.MR STROKE ANGIOGRAM HEAD WO CONTRAST, MR ANGIOGRAM NECK WO CONTRAST, MRBRAIN W WO CONTRAST COMPARISON: None. 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 Consider posteriorcirculation. TECHNIQUE: 1.5 Sarah multiplanar multiweighted MRI of brain prior to andafter intravenous contrast administration. Time of flight MRA of the circleof olsen and neck was obtained without contrast. Contrast: 20 mL ofProhance intravenous. FINDINGS: MRI BRAIN: The ventricles and cerebral sulci are prominent but appropriate forpatient's age. No midline shift, hydrocephalus or pathological extra-axialfluid collection is present. The basal cisterns are unremarkable. No restricted diffusion is present to suggest acute infarct. Diffuseconfluent T2/FLAIR hyperintensities are demonstrated in the deepbihemispheric white matter and kip, likely reflecting moderatemicrovascular ischemic changes. No abnormal gradient blooming. No abnormalintracranial enhancement. The T2 flow voids for the major intracranial vessels are unremarkable. Noabnormal fluid signal is present in the left mastoid air cells. Mucosalthickening of the left frontal sinus and anterior ethmoidal air cells.Trace fluid signal in the right mastoid air cells. The paranasal sinusesare otherwise clear. MRA NECK: Imagesare severely degraded by motion artifacts.The origins of the greater arch vessels are not visualized. Within limits of the evaluation the common carotid arteries are patent.The carotid bulbs/ICA origins are patent without high-grade stenosis seenat bifurcation.The vertebral arteries are patent. MRA [place] OF OLSEN: Images degraded by motion artifact.Left PICA origin is normally visualized. Right PICA AICA complex issuspected. The basilar artery is normal in caliber. The superior cerebellararteriesare patent. The posterior cerebral arteries appear grossly patentwithin limitations of technique. Left P-comm seen. No definite right P- commseen. The distal cervical, petrous, cavernous and supraclinoid internal carotidarteries are patent. The anterior and middle cerebral arteries are patent.An anterior communicating artery is visualized. 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 Consider posteriorcirculation. TECHNIQUE: 1.5 Sarah multiplanar multiweighted MRI of brain prior to andafter intravenous contrast administration. Time of flight MRA of the circleof olsen and neck was obtained without contrast. Contrast: 20 mL ofProhance intravenous. FINDINGS:MRI BRAIN:The ventricles and cerebral sulci are prominent but appropriate forpatient's age. No midline shift, hydrocephalus or pathological extra-axialfluid collection is present. The basal cisterns are unremarkable.No restricted diffusion is present to suggest acute infarct. Diffuseconfluent T2/FLAIR hyperintensities are demonstrated in the deepbihemispheric white matter and kip, likely reflecting moderatemicrovascular ischemic changes. No abnormal gradient blooming. No abnormalintracranial enhancement.The T2 flow voids for the major intracranial vessels are unremarkable. Noabnormal fluid signal is present in the left mastoid air cells. Mucosalthickening of the left frontal sinus and anterior ethmoidal air cells.Trace fluid signal in the right mastoid air cells. The paranasal sinusesare otherwise clear.MRA NECK:Images are severely degraded by motion artifacts.The origins of the greater arch vessels are not visualized.Within limits of the evaluation the common carotid arteries are patent.The carotid bulbs/ICA origins are patent without high-grade stenosis seenat bifurcation.The vertebral arteries are patent. MRA [place] OF OLSEN:Images degraded by motion artifact.Left PICA origin is normally visualized. Right PICA AICA complex issuspected. The basilar artery is normal in caliber. The superior cerebellarart eries are patent. The posterior cerebral arteries appear grossly patentwithin limitations of technique. Left P-comm seen. No definite right P-commseen.The distal cervical, petrous, cavernous and supraclinoid internal carotidarteries are patent. The anterior and middle cerebral arteries are patent.An anterior communicating artery is visualized.IMPRESSIONNo acute intracranial abnormality.Moderate chronic microvascular ischemic changes.No flow-limiting intracranial stenosis seen within the limitations oftechnique. The visualized cervical vessels are patent noting that aortic arch andproximal great vessels are excluded from the [id number].Preliminary Report Dictated by Resident: Rigo Lynch MD., have reviewed this study and agree with theabove report.[facility] WO [id number] 19:35:33 No acute intracranial abnormality. Moderate chronic microvascular ischemic changes. No flow-limiting intracranial stenosis seen within the limitations oftechnique. The visualized cervical vessels arepatent noting that aortic arch andproximal great vessels are excluded from the [id number]. Preliminary Report Dictated by Resident: Rigo Fuchs MD., have reviewed this study and agree with theabove report.MR STROKE ANGIOGRAM HEAD WO CONTRAST, MR ANGIOGRAM NECK WO CONTRAST, MRBRAIN W WO CONTRAST COMPARISON: None. 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 Consider posteriorcirculation. TECHNIQUE: 1.5 Sarah multiplanar multiweighted MRI of brain prior to andafter intravenous contrast administration. Time of flight MRA of the circleof olsen and neck was obtained without contrast. Contrast: 20 mL ofProhance intravenous. FINDINGS: MRI BRAIN: The ventricles and cerebral sulci are prominent but appropriate forpatient's age. No midline shift, hydrocephalus or pathological extra-axialfluid collection is present. The basal cisterns are unremarkable. No restricted diffusion is present to suggest acute infarct. Diffuseconfluent T2/FLAIR hyperintensities are demonstrated in the deepbihemispheric white matter and kip, likely reflecting moderatemicrovascular ischemic changes. No abnormal gradient blooming. No abnormalintracranial enhancement. The T2 flow voids for the major intracranial vessels are unremarkable. Noabnormal fluid signal is present in the left mastoid air cells. Mucosalthickening of the left frontal sinus and anterior ethmoidal air cells.Trace fluid signal in the right mastoid air cells. The paranasal sinusesare otherwise clear. MRA NECK: Imagesare severely degraded by motion artifacts.The origins of the greater arch vessels are not visualized. Within limits of the evaluation the common carotid arteries are patent.The carotid bulbs/ICA origins are patent without high-grade stenosis seenat bifurcation.The vertebral arteries are patent. MRA [place] OF OLSEN: Images degraded by motion artifact.Left PICA origin is normally visualized. Right PICA AICA complex issuspected. The basilar artery is normal in caliber. The superior cerebellararteriesare patent. The posterior cerebral arteries appear grossly patentwithin limitations of technique. Left P-comm seen. No definite right P- commseen. The distal cervical, petrous, cavernous and supraclinoid internal carotidarteries are patent. The anterior and middle cerebral arteries are patent.An anterior communicating artery is visualized. 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 Consider posteriorcirculation. TECHNIQUE: 1.5 Sarah multiplanar multiweighted MRI of brain prior to andafter intravenous contrast administration. Time of flight MRA of the circleof olsen and neck was obtained without contrast. Contrast: 20 mL ofProhance intravenous. FINDINGS:MRI BRAIN:The ventricles and cerebral sulci are prominent but appropriate forpatient's age. No midline shift, hydrocephalus or pathological extra-axialfluid collection is present. The basal cisterns are unremarkable.No restricted diffusion is present to suggest acute infarct. Diffuseconfluent T2/FLAIR hyperintensities are demonstrated in the deepbihemispheric white matter and kip, likely reflecting moderatemicrovascular ischemic changes. No abnormal gradient blooming. No abnormalintracranial enhancement.The T2 flow voids for the major intracranial vessels are unremarkable. Noabnormal fluid signal is present in the left mastoid air cells. Mucosalthickening of the left frontal sinus and anterior ethmoidal air cells.Trace fluid signal in the right mastoid air cells. The paranasal sinusesare otherwise clear.MRA NECK:Images are severely degraded by motion artifacts.The origins of the greater arch vessels are not visualized.Within limits of the evaluation the common carotid arteries are patent.The carotid bulbs/ICA origins are patent without high-grade stenosis seenat bifurcation.The vertebral arteries are patent. MRA [place] OF OLSEN:Images degraded by motion artifact.Left PICA origin is normally visualized. Right PICA AICA complex issuspected. The basilar artery is normal in caliber. The superior cerebellarart eries are patent. The posterior cerebral arteries appear grossly patentwithin limitations of technique. Left P-comm seen. No definite right P-commseen.The distal cervical, petrous, cavernous and supraclinoid internal carotidarteries are patent. The anterior and middle cerebral arteries are patent.An anterior communicating artery is visualized.IMPRESSIONNo acute intracranial abnormality.Moderate chronic microvascular ischemic changes.No flow-limiting intracranial stenosis seen within the limitations oftechnique. The visualized cervical vessels are patent noting that aortic arch andproximal great vessels are excluded from the [id number].Preliminary Report Dictated by Resident: Rigo Lynch MD., have reviewed this study and agree with theabove report.[facility]
--- NOTE | 2021-03-03 13:00 | ER ---
Nurse's Notes [facility] Name: Roger Ho Age: 85 yrs Sex: Male : 1935 Arrival Date: 03/03/2021 Time: 11:15 Bed 8 Private MD: Diagnosis: Weakness;Slipping, tripping and falls from upright position.;Chronic low back pain: Unchanged;Medication side effect: Ambien-weakness Presentation: 03/03 11:22 Chief complaint: Spouse and/or significant other states: "he had a fall this morning. jd3 well 4 falls. he landed on his right hand which is bruising pretty good. he just had a watchmen's procedure done and we want to make sure everything is still ok.". Coronavirus screen: At this time, the client does not indicate any symptoms associated with coronavirus-19. Ebola Screen: No symptoms or risks identified at this time. Initial Sepsis Screen: Does the patient meet any 2 criteria? No. Patient's initial sepsis screen is negative. Does the patient have a suspected source of infection? No. Patient's initial sepsis screen is negative. Risk Assessment: Do you want to hurt yourself or someone else? Patient reports no desire to harm self or others. Onset of symptoms was March 03, 2021. 11:22 Method Of Arrival: Ambulatory jd3 11:22 Acuity: TERESITA 3 jd3 11:25 Note no LOC. jd3 Historical: - Allergies: 11:23 Codeine; jd3 11:23 PENICILLINS; jd3 11:23 Morphine; jd3 11:23 tramadol; jd3 - Home Meds: 11:25 Eliquis oral [Active]; jd3 - PMHx: 11:23 Hyperlipidemia; Hypertension; COPD; jd3 - Immunization history:: Adult Immunizations up to date, Client reports receiving the 2nd dose of the Covid vaccine, Flu vaccine is up to date. - Social history:: Smoking status: Patient/guardian denies using tobacco, but has a distant history of tobacco abuse. Screenin:00 Fall Risk Fall in past 12 months (25 points). No secondary diagnosis (0 pts). No IV (0 ph pts). Ambulatory Aid- None/Bed Rest/Nurse Assist (0 pts). Gait- Normal/Bed Rest/Wheelchair (0 pts) Mental Status- Oriented to own ability (0 pts). Total Garcia Fall Scale indicates Low Risk Score (25-44 pts). Fall prevention measures have been instituted. Side Rails Up X 2 Placed close to Nursing Station Frequent Obs/Assesments occuring Family Present and informed to notify staff if they need to leave bedside As available Patient and Family Educated on Fall Prevention Program and strategies. 13:31 Abuse screen: Denies threats or abuse. Denies injuries from another. Nutritional ph screening: No deficits noted. Tuberculosis screening: No symptoms or risk factors identified. Assessment: 12:15 General: Appears in no apparent distress. comfortable, well groomed, Behavior is calm, ph cooperative, appropriate for age, Denies fever, feeling ill. Pain: Complains of pain in right hand. Neuro: Level of Consciousness is awake, alert, obeys commands, Oriented to person, place, time, situation, Reports Pt states, " I took some sleeping medicine last night and I think that's what made me fall. when I got out of bed early this morning my legs felt like noodles and I had to use my walker." reports that pt was "stumbling around with the walker and fell a few times onto the coffee table." Pt states that he fell again at approx 0700, "My legs just went out from under me." Reports that he fell on his rear-end and hit his R hand on the kitchen counter. States, " I'm feeling okay now, not dizzy or weak so I think it was the sleeping medicine." Denies hitting head.. Denies weakness dizziness, headache. Cardiovascular: Denies chest pain, lightheadedness, palpitations, shortness of breath, syncope. Respiratory: No deficits noted. Derm: Skin is intact, Skin is pink, warm \\T\\ dry. Bruising that is dark purple, on dorsum of right hand. Musculoskeletal: Circulation, motion, and sensation intact. Range of motion: intact in all extremities. 12:39 Reassessment: Patient appears in no apparent distress at this time. Patient is alert, ph oriented x 3, equal unlabored respirations, skin warm/dry/pink. Pt denied dizziness during orthostatics, ambulated pt down hallway, steady gait noted, denies pain or dizziness. 13:39 Reassessment: Pt instructed to only take 1/2 of Ambien at night before bed, d/c home w/ ph SO. Vital Signs: 11:24 BP 155 / 67; Pulse 53; Resp 17 S; Temp 97.6(TE); Pulse Ox 97% on R/A; Weight 94.35 kg jd3 (R); Height 6 ft. 3 in. (190.50 cm) (R); Pain 0/10; 12:38 BP 140 / 78 Supine; Pulse 51; ph 12:38 BP 140 / 80 Sitting; Pulse 54; ph 12:38 BP 129 / 74 Standing; Pulse 58; ph 13:38 BP 142 / 78; Pulse 52; Resp 18; Temp 97.9; Pulse Ox 99% on R/A; ph 11:24 Body Mass Index 26.00 (94.35 kg, 190.50 cm) jd3 ED Course: 11:15 Patient arrived in ED. ds1 11:23 Triage completed. jd3 11:25 Arm band placed on. jd3 11:34 Evon Arana, RN is Primary Nurse. ph 11:53 Albino Recinos MD is Attending Physician. kdr 13:32 Patient has correct armband on for positive identification. Bed in low position. Call ph light in reach. Side rails up X2. Pulse ox on. NIBP on. 13:38 No provider procedures requiring assistance completed. Patient did not have IV access ph during this emergency room visit. Administered Medications: No medications were administered Outcome: 13:00 Discharge ordered by . kdr 13:40 Discharged to home via wheelchair, with significant other. ph 13:40 Condition: good 13:40 Discharge instructions given to patient, significant other, Instructed on discharge instructions, follow up and referral plans. Demonstrated understanding of instructions, follow-up care. 13:40 Patient left the ED. ph Signatures: Albino Recinos MD MD [facility] ds1 Evon Arana RN RN ph Mika Alfredo RN RN jd3 Corrections: (The following items were deleted from the chart) 11:26 11:24 Pulse 53bpm; Resp 17bpm; Spontaneous; Pulse Ox 97% RA; Temp 97.6F Temporal; 94.35 jd3 kg Reported; Height 6 ft. 3 in. Reported; BMI: 26.0; Pain 0/10; jd3
--- NOTE | 2021-03-03 13:01 | EDPHYS ---
Physician Documentation [facility] Name: Roger Ho Age: 85 yrs Sex: Male : 1935 Arrival Date: 03/03/2021 Time: 11:15 Bed 8 Private MD: ED Physician Albino Recinos HPI: 03/03 12:34 This 85 yrs old Male presents to ER via Ambulatory with complaints of Fall Injury. kdr 12:34 Details of fall: The patient fell from an upright position, while standing, while kdr walking. Onset: The symptoms/episode began/occurred suddenly, this morning. Associated injuries: The patient sustained no obvious injury. Severity of symptoms: At their worst the symptoms were very mild, in the emergency department the symptoms are unchanged. The patient has not experienced similar symptoms in the past. The patient has been recently seen by a physician: Patient had a watchman procedure done last week by Dr. Aly. Patient and report that since early this morning, the patient had difficulty standing. He was trying to get out of bed but kept falling to the ground. He may have fallen as many as 3-5 times. He denies any new pain. He states he has chronic back pain from prior injuries and surgery. That pain however is unchanged. Historical: - Allergies: 11:23 Codeine; jd3 11:23 PENICILLINS; jd3 11:23 Morphine; jd3 11:23 tramadol; jd3 - Home Meds: 11:25 Eliquis oral [Active]; jd3 - PMHx: 11:23 Hyperlipidemia; Hypertension; COPD; jd3 - Immunization history:: Adult Immunizations up to date, Client reports receiving the 2nd dose of the Covid vaccine, Flu vaccine is up to date. - Social history:: Smoking status: Patient/guardian denies using tobacco, but has a distant history of tobacco abuse. ROS: 13:45 Constitutional: Negative for fever, chills, and weight loss, Eyes: Negative for injury, kdr pain, redness, and discharge, ENT: Negative for injury, pain, and discharge, Neck: Negative for injury, pain, and swelling, Cardiovascular: Negative for chest pain, palpitations, and edema, Respiratory: Negative for shortness of breath, cough, wheezing, and pleuritic chest pain, Abdomen/GI: Negative for abdominal pain, nausea, vomiting, diarrhea, and constipation, Back: Negative for injury and pain, : Negative for injury, bleeding, discharge, and swelling, MS/Extremity: Negative for injury and deformity, Skin: Negative for injury, rash, and discoloration, Neuro: Negative for headache, weakness, numbness, tingling, and seizure activity. Psych: Negative for depression, anxiety, suicide ideation, homicidal ideation, and hallucinations, Allergy/Immunology: Negative for hives, rash, and allergies, Endocrine: Negative for neck swelling, polydipsia, polyuria, polyphagia, and marked weight changes, Hematologic/Lymphatic: Negative for swollen nodes, abnormal bleeding, and unusual bruising. Exam: 13:45 Constitutional: This is a well developed, well nourished patient who is awake, alert, kdr and in no acute distress. Head/Face: Normocephalic, atraumatic. Eyes: Pupils equal round and reactive to light, extra-ocular motions intact. Lids and lashes normal. Conjunctiva and sclera are non-icteric and not injected. Cornea within normal limits. Periorbital areas with no swelling, redness, or edema. Neck: Trachea midline, no thyromegaly or masses palpated, and no cervical lymphadenopathy. Supple, full range of motion without nuchal rigidity, or vertebral point tenderness. No Meningismus. Chest/axilla: Normal chest wall appearance and motion. Nontender with no deformity. No lesions are appreciated. Cardiovascular: Regular rate and rhythm with a normal S1 and S2. No gallops, murmurs, or rubs. Normal PMI, no JVD. No pulse deficits. Respiratory: Lungs have equal breath sounds bilaterally, clear to auscultation and percussion. No rales, rhonchi or wheezes noted. No increased work of breathing, no retractions or nasal flaring. Abdomen/GI: Soft, non-tender, with normal bowel sounds. No distension or tympany. No guarding or rebound. No evidence of tenderness throughout. Back: No spinal tenderness. No costovertebral tenderness. Full range of motion. Skin: Warm, dry with normal turgor. Normal color with no rashes, no lesions, and no evidence of cellulitis. MS/ Extremity: Pulses equal, no cyanosis. Neurovascular intact. Full, normal range of motion. Neuro: Awake and alert, GCS 15, oriented to person, place, time, and situation. Cranial nerves II-XII grossly intact. Motor strength 5/5 in all extremities. Sensory grossly intact. Cerebellar exam normal. Normal gait. Psych: Awake, alert, with orientation to person, place and time. Behavior, mood, and affect are within normal limits. Vital Signs: 11:24 BP 155 / 67; Pulse 53; Resp 17 S; Temp 97.6(TE); Pulse Ox 97% on R/A; Weight 94.35 kg jd3 (R); Height 6 ft. 3 in. (190.50 cm) (R); Pain 0/10; 12:38 BP 140 / 78 Supine; Pulse 51; ph 12:38 BP 140 / 80 Sitting; Pulse 54; ph 12:38 BP 129 / 74 Standing; Pulse 58; ph 13:38 BP 142 / 78; Pulse 52; Resp 18; Temp 97.9; Pulse Ox 99% on R/A; ph 11:24 Body Mass Index 26.00 (94.35 kg, 190.50 cm) jd3 MDM: 13:00 Patient medically screened. kdr 13:45 Data reviewed: vital signs, nurses notes. Counseling: I had a detailed discussion with kdr the patient and/or guardian regarding: the historical points, exam findings, and any diagnostic results supporting the discharge/admit diagnosis, the need for outpatient follow up. ED course: The patient had multiple falls earlier this morning. The last time was approximately 7 AM. Since then he has been back to baseline has not had any further problem. His primary concern was that it may have been the Ambien he took which resulted in his generalized weakness and being off balance. Patient now is walking without any difficulty and is completely back to baseline. He has no new apparent injuries either. I discussed with the patient and his whether or not to do further laboratory work however they felt given his complaint told return to baseline, that this was unnecessary at this time. They were discharged in good condition and happy with the care provided and the plan for discharge and follow-up. 03/03 12:34 Order name: Orthostatic Blood Pressure; Complete Time: 13:31 kdr 03/03 12:34 Order name: Misc. Order: Ambulate patient around the department as long as orthostatic kdr blood pressure results will support this activity ; Complete Time: 13:31 Administered Medications: No medications were administered Disposition Summary: 03/03/21 13:00 Discharge Ordered Location: Home kdr Problem: new kdr Symptoms: are resolved kdr Condition: Stable kdr Diagnosis - Weakness kdr - Slipping, tripping and falls from upright position. kdr - Chronic low back pain: Unchanged kdr - Medication side effect: Ambien-weakness kdr Followup: kdr - With: Private Physician - When: 2 - 3 days - Reason: If symptoms return, Further diagnostic work-up, Recheck today's complaints, Continuance of care, Re-evaluation by your physician Discharge Instructions: - Discharge Summary Sheet kdr - Weakness, [id number] kdr Forms: - Medication Reconciliation Form kdr - Thank You Letter kdr Signatures: Albino Recinos MD MD kdr Mika Alfredo RN RN jd3
[2021-03-03 22:10] VITALS: BP 142/78; TEMP 97.9; O2SAT 99
== END 2021-03-03 13:40 | disposition home or self-care (01) ==
LOC: ER 11:12
DX: R53.1 Weakness (principal); T42.6X5A Adverse effect of other antiepileptic and sedative-hypnotic drugs, initial encounter; G89.29 Other chronic pain; W01.0XXA Fall on same level from slipping, tripping and stumbling without subsequent striking against object, initial encounter; E78.5 Hyperlipidemia, unspecified; I10 Essential (primary) hypertension; Z79.01 Long term (current) use of anticoagulants; Z88.0 Allergy status to penicillin; Z88.5 Allergy status to narcotic agent
CPT/HCPCS: 99283

== ENCOUNTER 2022-12-20 17:01 | Observation (INO) | payer OTHER ==
--- OUTSIDE RECORDS SUMMARY | 2022-12-20 17:05 | XMS REPORT | Continuity of Care Document ---
:1935 Author Organization [facility] t Address [address] [place] [address] [place] [id number] Care Team Providers Name Role Phone Leonard Whyte Primary Care Physician Dafne Rogers Attending Clinician Unavailable Brendan Vigil MD Attending Clinician Juan Alberto Putnam Attending Clinician Unavailable ARLETTE ABDI Attending Clinician Unavailable BRENDAN VIGIL Attending Clinician Unavailable BRENDAN VIGIL Attending Clinician Unavailable Doctor Unassigned, [place] Attending Clinician Unavailable Bernardo Kumar Attending Clinician Mihir Kam Attending Clinician Leonard Whyte Admitting Clinician Unavailable Juan Alberto Putnam Admitting Clinician Unavailable ARLETTE ABDI Admitting Clinician Unavailable Payers Payer Name Policy Type Policy Number Effective Date Expiration Date Brenda singh AETBOBBY MEDICARE HMO [id number] 2020 POS 00:00:00 Problems Condition Condition Condition Status Onset Resolution Last Treating Co mments Source Name Details Category Date Date Treatment Clinician Date New onset New onset Disease Recurre 2020-[address] atrial atrial nce 2-04 [facility] fibrillati fibrillati 00:00: Me dical on on Center Abdominal Abdominal Disease Active 2020-[address] [facility] distention distention 2-04 Roxy kes 00:00: Medical 00 Center S/P spinal S/P spinal Disease Active 2020-[address] surgery surgery 2-04 [facility] 00:00: Medical 00 [place] No known No known Disease Unive rs active active ity of problems problems [facility] Allergies, Adverse Reactions, Alerts Allergy Allergy Status Severity Reaction(s) Onset Inactive Treating Comm ents Source Name Type Date Date Clinician Penicill DA Active MO ITCHING [facility] ins 1-17 Clear 00:00: [place] 00 [facility] codeine DA Active MO ITCHING [facility] 1-17 Clear 00:00: [place] 00 [facility] CODEINE Allergy Active Itching 2020-[address] 2-03 [facility] 00:[facility]: Medical 00 Center MEPERIDI Allergy Active Itching 2020-[address] NE 2-03 [facility] 00:00: Medical 00 Center MORPHINE Allergy Active Itching 2020-[address] 2[facility]03 [facility] 00:00: Medical 00 Center OXYCODON Allergy Active Itching 2020-[address] E 2-03 [facility] 00:00: Medical 00 [place] PENICILL Allergy Active Itching 2020-[address] IN 2-03 [facility] 00:00: Medical 00 Center TRAMADOL Allergy Active Itching 2020-[address] 2[facility]03 [facility] 00:00: Medical 00 Center Codeine Drug Active Itching 2020-[address] Allergy 2-03 [facility] 00:00: Medical 00 Center Meperidi Drug Active Itching 2020-[address] [facility] ne Allergy 2-03 [facility] 00:00: Medical 00 Center Morphine Drug Active Itching 2020-[address] Allergy 2-03 [facility] 00:00: Medical 00 Center Oxycodon Drug Active Itching 2020-[address] [facility] e Allergy 2-03 [facility] 00:00: Medical 00 Center Penicill Drug Active Itching 2020-[address] [facility] in Allergy 2-03 [facility] 00:00: Medical 00 Center Tramadol Drug Active Itching 2020-[address] Allergy 2-03 [facility] 00:00: Medical 00 Center CODEINE DRUG Active Med ITCHING 2020- Univers INGREDI 6-11 ity of 00:00: [place] [address] Medical Branch PENICILL Drug Active Med ITCHING 2020- Univers INS Class 6-11 ity of 00:00: [place] 00 Medical Branch Penicill Propensi Active Itching 2020- Unive rs ins ty to 611 ity of adverse 00:00: [place] reaction 00 Medical s Branch Codeine Propensi Active Itching 2020-0 Univer s ty to 6-11 ity of adverse 00:00: [place] reaction 00 Medical s Branch Penicill Propensi Active Itching Unive rs ins ty to 611 ity of adverse 00:00: [place] reaction 00 Medical s Branch NO KNOWN Drug Active Univers ALLERGIE Class ity of S [facility] codeine codeine Active Memoria l [place] penicill penicill Active Memori a in in l J[place] Social History Social Habit Start Date Stop Date Quantity Comments Source Exposure to Not sure University of SARS-CoV-2 (event) [facility] Sexual orientation [facility] History of tobacco Current smoker [facility] use [facility] Tobacco use and 2021-01-10 2021-01-[address] [facility] kes exposure 00:00:00 00:00:00 tobacco non-user [facility] Alcohol intake 2021-01-10 2021-01-10 Ex-drinker [facility] es 00:00:00 00:00:00 (finding) [facility] Tobacco Comment 2021-01-10 2021-01-10 QUIT [address] [facility] 00:00:00 00:00:00 AGO [facility] Sex Assigned At [address] Roxy kes 00:00:00 00:00:00 [facility] Smoking Status Start Date Stop Date Source Ex-smoker 2021-01-10 00:00:00 2021-01-10 00:00:[address] [facility] [facility] Social History 2017-08-24 14:50:38 [facility] Medications Ordered Filled Start Stop Current Ordering Indication Dosage Frequency Signature Comments Components Source Medication Medication Date Date Medication? Clinician (SIG) Name Name fluticasone 2020-02 Yes 2{spray QD [address] propionate 2-06 } by Nasal [facility] (FLONASE) 13:50: route Medical 50 27 daily. Center mcg/actuati on nasal spray omeprazole 2020-02 Yes 40mg QD Take [address] (PriLOSEC) 2-06 by mouth [facility] 40 MG 13:50: daily. Medical capsule 27 Center budesonide- 2020-02 Yes 2{puff} Q.5D Inhale [address] formoteroL 2-06 puffs by [facility] (SYMBICORT) 13:50: mouth via M edical 160-4.5 27 inhaler 2 Center mcg/actuati (two) on inhaler times daily. meclizine 2020-02 Yes 25mg Take [address] (ANTIVERT) 2-06 by mouth [facility] 25 MG 13:50: every 8 Medical tablet 27 (eight) Center hours as needed. simvastatin 2020-02 Yes 40mg QD Take [address] (ZOCOR) 40 2-06 by mouth [facility]ukes MG tablet 13:50: nightly. Medi bautista 27 [place] gabapentin 2020-02 Yes 300mg Q.5D Take [address] (NEURONTIN) 2-06 mg by [facility] 300 MG 13:50: mouth 2 Medical capsule 27 (two) Center times daily . diazePAM Yes [id number] 5mg Take 1 Un chin (VALIUM) 5 7-12 tablet by ity of mg tablet 00:00: mouth 2 [place] [address] (two) Medical times Branch daily. diazePAM Yes [id number] 5mg Take 1 Un chin (VALIUM) 5 7-12 tablet by ity of mg tablet 00:00: mouth 2 [place] 00 (two) Medical times Branch daily. diazePAM Yes [id number] 5mg Take 1 Un chin (VALIUM) 5 7-12 tablet by ity of mg tablet 00:00: mouth 2 [place] 00 (two) Medical times Branch daily. diazePAM Yes [id number] 5mg Take 1 Un chin (VALIUM) 5 7-12 tablet by ity of mg tablet 00:00: mouth 2 [place] 00 (two) Medical times Branch daily. gadoteridol 2020- No [id number] .2mL/kg 0.2 mL/kg, Univers (PROHANCE-2 08-13 07-06 Intravenou i ty of 0 mL) 16:00: 16:08 s, ONCE, 1 [place] injection 00 :00 dose, Tue Medic al 0.2 mL/kg 08/13/20 at [facility] h 1100, Routine omeprazole Yes Univers 40 mg 6-08 ity of capsule 00:00: [place] 00 Medical Branch omeprazole 2021-0 Yes Univers 40 mg 6-08 ity of capsule 00:00: [place] 00 Medical Branch omeprazole 2021-0 Yes Univers 40 mg 6-08 ity of capsule 00:00: [place] 00 Medical Branch omeprazole 2021-0 Yes Univers 40 mg 6-08 ity of capsule 00:00: 00 Medical Branch omeprazole 2021-0 Yes Univers 40 mg 6-08 ity of capsule 00:00: [place] 00 Medical Branch omeprazole 2021-0 Yes Univers 40 mg 6-08 ity of capsule 00:00: [place] 00 Medical Branch omeprazole 2021-0 Yes Univers 40 mg 6-08 ity of capsule 00:00: [place] 00 Medical Branch omeprazole 2021-0 Yes Univers 40 mg 6-08 ity of capsule 00:00: 00 Medical Branch omeprazole 2021-0 Yes Univers 40 mg 6-08 ity of capsule 00:00: 00 Medical Branch omeprazole 2021-0 Yes Univers 40 mg 6-08 ity of capsule 00:00: [place] 00 Medical Branch valsartan 2020-0 Yes 320mg Take 320 Uni vers 160 mg 6-01 mg by ity of tablet 00:00: mouth 00 daily. Medical Branch valsartan 2020-0 Yes 320mg Take 320 Uni vers 160 mg 6-01 mg by ity of tablet 00:00: mouth [place] 00 daily. Medical Branch valsartan 0 Yes 320mg Take 320 Uni vers 160 mg 6-01 mg by ity of tablet 00:00: mouth 00 daily. Medical Branch valsartan 2020-0 Yes 320mg Take 320 Uni vers 160 mg 6-01 mg by ity of tablet 00:00: mouth [place] 00 daily. Medical Branch valsartan 2020-0 Yes 320mg Take 320 Uni vers 160 mg 6-01 mg by ity of tablet 00:00: mouth [place] 00 daily. Medical Branch valsartan 0 Yes 320mg Take 320 Uni vers 160 mg 6-01 mg by ity of tablet 00:00: mouth [place] 00 daily. Medical Branch valsartan 2020-0 Yes 320mg Take 320 Uni vers 160 mg 6-01 mg by ity of tablet 00:00: mouth [place] 00 daily. Medical Branch valsartan 0 Yes 320mg Take 320 Uni vers 160 mg 6-01 mg by ity of tablet 00:00: mouth daily. Medical Branch valsartan 0 Yes 320mg Take 320 Uni vers 160 mg 6-01 mg by ity of tablet 00:00: mouth 00 daily. Medical Branch valsartan 0 Yes 320mg Take 320 Uni vers 160 mg 6-01 mg by ity of tablet 00:00: mouth 00 daily. Medical Branch gatifloxaci 0 Yes Univer s n 0.5 % 5-03 ity of ophthalmic 00:00: [place] drops Medical Branch gatifloxaci Yes Univer s n 0.5 % 5-03 ity of ophthalmic 00:00: [place] drops Medical Branch gatifloxaci 0 Yes Univer s n 0.5 % 5-03 ity of ophthalmic 00:00: [place] drops Medical Branch gatifloxaci 0 Yes Univer s n 0.5 % 5-03 ity of ophthalmic 00:00: [place] drops 00 Medical Branch gatifloxaci 0 Yes Univer s n 0.5 % 5-03 ity of ophthalmic 00:00: [place] drops 00 Medical Branch gatifloxaci 0 Yes Univer s n 0.5 % 5-03 ity of ophthalmic 00:00: [place] drops Medical Branch gatifloxaci 0 Yes Univer s [...] 00:00: [place] drops 00 Medical Branch simvastatin 0 Yes Univer s 40 mg 4-30 ity of tablet 00:00: [place] Medical [facility] simvastatin 2020-0 Yes Univer s 40 mg 4-30 ity of tablet 00:00: [place] Medical Branch simvastatin 2020-0 Yes Univer s 40 mg 4-30 ity of tablet 00:00: [place] [facility] simvastatin 2021-0 Yes Univer s 40 mg 4-30 ity of tablet 00:00: [facility] simvastatin 2021-0 Yes Univer s 40 mg 4-30 ity of tablet 00:00: [place] [facility] simvastatin 2021-0 Yes Univer s 40 mg 4-30 ity of tablet 00:00: [place] [facility] simvastatin 2021-0 Yes Univer s 40 mg 4-30 ity of tablet 00:00: [place] [facility] simvastatin 2021-0 Yes Univer s 40 mg 4-30 ity of tablet 00:00: [place] [facility] simvastatin 2021-0 Yes Univer s 40 mg 4-30 ity of tablet 00:00: [place] [facility] simvastatin 2021-0 Yes Univer s 40 mg 4-30 ity of tablet 00:00: [place] [facility] metoprolol 2021-0 Yes 25mg Take 25 mg U nivers [...] tablet 00 times Medical daily. Branch metoprolol 2021-0 Yes 25mg Take 25 mg U nivers succinate 4-11 by mouth 2 ity of XL 25 mg 24 00:00: (two) [place] hr tablet 00 times Medical daily. Branch metoprolol 2021-0 Yes 25mg Take 25 mg U nivers succinate 4-11 by mouth 2 ity of XL 25 mg 24 00:00: (two) [place] hr tablet 00 times Medical daily. Branch hydroCHLORO 1-0 Yes 25mg Take 25 mg Univers thiazide 25 4-08 by mouth ity of mg tablet 00:00: daily. [address] hydroCHLORO 2021-0 Yes 25mg Take 25 mg Univers thiazide 25 4-08 by mouth ity of mg tablet 00:00: daily. [place] [facility] hydroCHLORO 2021-0 Yes 25mg Take 25 mg Univers thiazide 25 4-08 by mouth ity of mg tablet 00:00: daily. [place] [facility] hydroCHLORO 2021-0 Yes 25mg Take 25 mg Univers thiazide 25 4-08 by mouth ity of mg tablet 00:00: daily. [place] [facility] hydroCHLORO 2021-0 Yes 25mg Take 25 mg Univers thiazide 25 4-08 by mouth ity of mg tablet 00:00: daily. [address] hydroCHLORO 2021-0 Yes 25mg Take 25 mg Univers thiazide 25 4-08 by mouth ity of mg tablet 00:00: daily. [place] [facility] hydroCHLORO 2021-0 Yes 25mg Take 25 mg Univers thiazide 25 4-08 by mouth ity of mg tablet 00:00: daily. [place] [facility] hydroCHLORO 2021-0 Yes 25mg Take 25 mg Univers thiazide 25 4-08 by mouth ity of mg tablet 00:00: daily. [address] hydroCHLORO 2021-0 Yes 25mg Take 25 mg Univers thiazide 25 4-08 by mouth ity of mg tablet 00:00: daily. [address] hydroCHLORO 2021-0 Yes 25mg Take 25 mg Univers thiazide 25 4-08 by mouth ity of mg tablet 00:00: daily. [place] 00 Medical Branch SYMBICORT Yes TAKE 2 Univer s [...] Systolic blood 2020-08-19 16:17:00 132 mm[Hg] [facility] Diastolic blood 2020-08-19 16:17:00 68 mm[facility]Hg] [facility] rate 2020-08-19 16:17:00 62 /min [facility] Body weight 2020-08-19 16:17:[address] [facility] BMI 2020-08-19 16:17:00 28.37 kg/m2 [facility] Systolic blood 2020-07-19 13:33:00 160 mm[Hg] Univer [facility] Branch Diastolic blood 2020-07-19 13:33:00 71 mm[Hg] [facility] Heart rate 2020-07-19 13:30:00 62 /min [facility] Body height 2020-07-19 13:30:[address] [facility] Body weight 2020-07-19 13:30:[address] [facility] BMI 2020-07-19 13:30:00 28.37 kg/m2 [facility] Oxygen saturation 2020-07-19 13:30:00 94 /min [facility] in Arterial blood Medical Br anch by Pulse oximetry BMI Calculated 2017-08-24 14:50:00 Chalo lemus [place] Height 2017-08-24 14:50:00 190.5 cm [facility] Weight 2017-08-24 14:50:00 [facility] Heart Rate 2017-08-24 14:50:00 [facility] Systolic (mm Hg) 2017-08-24 14:50:00 [place] Diastolic (mm Hg) 2017-08-24 14:50:00 Mem orial [facility] Procedures Procedure Date / Time Performing Clinician Source Performed [id number] 2021-02-26 00:00:00 MICHELL MORA Gu Trina [facility] [id number] 2021-02-26 00:00:00 MICHELL Gu Trina [facility] EXTERNAL PROVIDER RECORDS 2020-08-15 05:01:00 Doctor Rita, [facility] [place] [facility] MR BRAIN W WO CONTRAST 2020-08-13 16:25:16 Brendan Vigil [facility] [place] MR STROKE ANGIOGRAM HEAD 2020-08-13 16:24:42 Brendan Vigil e [facility] WO CONTRAST Medical Branch MR ANGIOGRAM NECK WO 2020-08-13 15:26:10 Brendan Vigil Un [facility] CONTRAST Medical Branch NOTICE OF BILLING 2020-08-13 14:03:05 Doctor Unassigned, [facility] PRACTICES FOR MEDICARE [place] [facility] B ranch PATIENTS [facility] PATIENT FINANCIAL 2020-08-13 14:02:47 Doctor Unassigned, [facility] POLICY [place] [facility] NO SHOW OR MISSED 2020-08-13 14:02:26 Doctor Unassigned, [facility] APPOINTMENT POLICY [place] [facility]anc h ACKNOWLEDGEMENT NOTICE OF PRIVACY 2020-08-13 14:02:06 Doctor Unassigned, [facility] PRACTICES [place] [facility] CONSENT/REFUSAL FOR 2020-08-13 14:01:50 Doctor Unassjordon, [facility] DIAGNOSIS AND TREATMENT [place] [facility] ASSIGNMENT OF BENEFITS 2020-08-13 14:01:34 Doctor Unassigned, [facility] [place] [facility] Back [facility] Gallbladder [facility] Knee [facility] Nasal sinus [facility] Shoulder [facility] Shoulder [facility] Plan of Care Planned Activity Planned Date Details Comments Source Future Scheduled 2022-10-09 Influenza Vaccine (#1) [facility] Test 00:00:00 [code = Influenza Medical Ce nter Vaccine (#1)] Future Scheduled 2022-02-[address] [facility] Test 00:00:00 (12+) [code = Medical Center DEPRESSION SCREENING (12+)] Future Scheduled 2022-02-08 FALLS RISK SCREENING [facility] Test 00:00:00 [code = FALLS RISK Medical C enter SCREENING] Future Scheduled 2022-01-[address] [facility] Test 00:00:00 Counseling and Medical Cente r Screening (12+) [code = Tobacco Cessation Counseling and Screening (12+)] Future Scheduled 2021-02-[address] [facility] Test 00:00:00 WELLNESS (YEAR 2 or Medical Center FIRST YEAR if no IPPE) [code = MEDICARE ANNUAL WELLNESS (YEAR 2 or FIRST YEAR if no IPPE)] Future Scheduled 1998 PNEUMOCOCCAL 65+ YRS [facility] Test 00:00:00 (1 - PCV) [code = Medical Ce nter PNEUMOCOCCAL 65+ YRS (1 - PCV)] Future Scheduled 1983-10-30 SHINGLES VACCINES ([address] [facility] Test 00:00:00 of 2) [code = SHINGLES Medic al Center VACCINES (1 of 2)] Future Scheduled 1952 DTAP/TDAP/TD VACCINES [facility] Test 00:00:00 (1 - Tdap) [code = Medical C enter DTAP/TDAP/TD VACCINES (1 - Tdap)] Future Scheduled 1936-04[birth year]28 COVID-19 VACCINE (#1) [facility] Test 00:00:00 [code = COVID-[address] VACCINE (#1)] Encounters Start End Encounter Admission Attending Care Care Encounter Source Date/Time Date/Time Type Type Clinicians Facility Department ID 2022-11-[address] [facility] [id number] Common 16:15:00 [place] [address] [facility] 2022-09-[address] [facility] [id number] Common 10:22:01 [place] [address] [facility] 2021-10-10 2021-10-10 LAYA Mane [id number] Univers 00:00:00 00:00:00 [facility] [id number] ity of [place] [id number] Luisa webber VALLES [id number] [facility] 092 Branch OFFICE BUILDING 2021-04-09 2021-04-09 Inpatient TOBI [place] [id number] [facility] 05:24:00 05:24:00 Juan Alberto 41 [facility] 2021-02-26 2021-02-26 Inpatient TOBI [place] INTE.02 [id number] [facility] 15:18:00 20:00:00 Juan Alberto 67 [facility] 2021-01-10 2021-01-13 Inpatient ARLETTE PADGETT [facility] Internal [id number] [facility] 21:04:00 13:50:00 Med 2020-08-30 2020-08-30 [facility]phone [facility] [id number] Univers 00:00:00 00:00:00 Brendan Larson [id number] ity [id number] [phone] Sc dical nal 092 [facility] 2020-08-19 2020-08-19 Office [facility] [id number] Univers 10:54:00 12:07:46 Visit Brendan Larson [id number] it[id number] [phone] Sc dicne nal 092 [facility] 2020-08-19 2020-08-19 Outpatient R BRENDAN VIGIL [facility] [id number] Univers 11:00:00 11:00:00 BRENDAN VIGIL ity of [facility] 2020-08-15 2020-08-15 Orders Doctor ANNIE [id number] Univers 00:00:00 00:00:00 Only Unassigned, SHEREE [id number] ity of [place] [facility] [id number] To as [phone] [facility] 009 Branch 2020-08-13 2020-08-13 [facility] [id number] Univers 09:00:32 23:59:00 Encounter Brendan Larson [id number] it[id number] [id number] [facility] 804 Branch 2020-08-13 2020-08-13 [facility] [id number] Univers 09:00:22 23:59:00 Encounter Brendan Larson [id number] ity of [place] [id number] [facility] [phone] [address] 2020-08-13 2020-08-13 [facility] [id number] Univers 09:00:09 23:59:00 Encounter Brendan Larson [id number] ity of [place] [id number] [facility] [id number] [address] 2020-08-13 2020-08-13 Outpatient Joseph MUSABRENDAN Lin [facility] [id number] Univers 00:00:00 00:00:00 MUSABRENDAN Lin [facility] 2020-07-19 2020-07-19 Office [facility] [id number] Univers 08:03:59 09:17:25 Visit Brendan Larson [id number] ity [facility] [id number] [facility] Professio [id number] [place] [address] [facility] 2020-07-19 2020-07-19 Outpatient BRENDAN CASTELLANOS [facility] [id number] Univers 08:00:00 08:00:00 MUSABRENDAN Lin [facility] 2017-08-24 2017-08-25 [place] [id number] Memoria 14:15:00 04:59:59 r Urology 02 [facility] 2017-08-24 2017-08-24 Outpatient Juant, ESAUMG [facility] [id number] 09:15:00 23:59:59 Bernardo Ash 02 2017-08-24 2017-08-24 Outpatient MHIE MHIE [id number] Memoria 09:15:00 09:15:[address] [place] [address] 2017-08-23 2017-08-23 [place] [id number] Memoria 13:00:00 13:00:00 Pre-Reg r Urology 01 [facility] 2017-08-23 2017-08-[address] [facility] [id number] Memoria 08:00:00 08:00:00 01 raúl [place] 2017-08-23 2017-08-23 Outpatient Eddy [facility] [id number] 08:00:00 08:00:00 Mihir Brunson 2016-08-17 2016-08-[address] [facility] [id number] Memoria 10:15:00 10:15:00 00 [facility] Results Test Description Test Time Test Comments Results Result Comments Source Novel Coronavirus 2019 Inhouse 2021-04-08 03:59:00 Test Item Value Reference Range Interpretation Comme nts Novel Coronavirus 2018 Negative Negative Posit maggie results are indicative of the Inhouse (test code = presenc e [id number] RNA, clinical COVNONPUI) correlation wit h patient historyand other diagnosti c information is necessary to de terminepatient infection status. Positiv e results do not rule outbacterial in fection or co-infection with other viru ses. Negative results do not preclude SA RS-CoV-2 infection andshould not b e used as the sole basis for patient man agementdecisions. Negative result s must be combined with otherclinical o bservations, patient history, and ep idemiologicalinformation. Detection of SA RS-CoV-2 RNA may be affected bysamp le collection methods, storage conditi ons, and/or stageof infection. Cynthia l RNA mutations, vaccinations, a ntiviraltherapeutics, antibiotics, ch emotherapeutic orimmunosuppres jacinto drugs have not been evaluated for e ffectson detection. Results are for the identification of SARS-CoV-2 RNA usingreal-time (RT) polymerase maeve n reaction (PCR) technologyfor t he qualitative detection of nucleic acid s from [id number] virus and diagn osis of SARS-CoV-2 virusinfection. It is an Emergency Use Authorization ( EUA) testauthorized by the U.S. FDA. BASIC METABOLIC [id number] 10:54:00 Test Item Value Reference Range Interpretation Comments SODIUM (test code = NA) 144 mEq/L 134-147 N POTASSIUM (test code = 4.1 mEq/L 3.4-5.0 N K) CHLORIDE (test code = 108 mEq/L 100-108 N CL) CARBON DIOXIDE (test 31 mEq/l 21-33 N code = CO2) ANION GAP (test code = 10 0-20 N GAP) GLUCOSE (test code = 95 mg/dL 70-110 N GLU) BLOOD UREA NITROGEN 11 mg/dL 7-18 N (test code = BUN) GLOMERULAR FILTRATION 57.3 70-80 L Units of measure = RATE (test code = GFR) ml/mi n/1.73 m2 CREATININE (test code = 1.2 mg/dL 0.6-1.3 N CREAT) CALCIUM (test code = 9.5 mg/dL 8.0-10.5 N CA) PROTHROMBIN [id number] 10:46:00 Test Item Value Reference Range Interpretation Comments PROTHROMBIN TIME 17.5 SECONDS 9.3-12.9 H PATIENT (test code = PTP) INTERNATIONAL NORMAL 1.6 0.8-1.2 H TARGET INR BY RATIO (test code = INDICATIO N Indication INR) INR1. Prophylax is of venous thrombos is 2.0 - 3.0 (orthoped ic surgery), Proph ylaxis of venous throm bosis (other than hig h-risk surgery), Treat ment of Deep Vein Thrombosis/Pulm onary Embolism, Preve ntion of systemic emb olism - Tissue heart va lves, Acute Myocardia l Infarction (to prevent systemic emboli sm), Valvular heart disease, Atrial Fibrillation, Bileaflet mecha nical valve in aortic position.2. Mec hanical prosthetic valv es (high risk), 2. 5 - 3.5 Presence of Lup us Anticoagulant o r Antiphospholipi d Antibodies, Pre vention of systemic emb olism - Acute Myocardia l Infarction (to prevent recurrent infar ct). CBC W/AUTO [id number] 10:41:00 Test Item Value Reference Range Interpretation Comments WHITE BLOOD CELL (test code = 7.5 x10 3/uL 4.5-11.0 N WBC) RED BLOOD CELL (test code = 4.58 x10 6/uL 4.00-5.60 N RBC) HEMOGLOBIN (test code = HGB) 13.9 g/dL 12.5-16.9 N HEMATOCRIT (test code = HCT) 43.0 % 37.5-50.7 N MEAN CELL VOLUME (test code = 93.9 fL 81.0-99.0 N MCV) MEAN CELL HGB (test code = MCH) 30.3 pg 27.0-33.0 N MEAN CELL HGB CONCETRATION 32.3 g/dL 33.0-37.0 L (test code = MCHC) RED CELL DISTRIBUTION WIDTH CV 12.6 % 11.5-14.5 N (test code = RDW) RED CELL DISTRIBUTION WIDTH SD 43.7 fL 37.0-54.0 N (test code = RDW-SD) PLATELET COUNT (test code = 280 x10 3/uL 150-400 N PLT) MEAN PLATELET VOLUME (test code 11.0 fL 7.0-9.0 H = MPV) NEUTROPHIL % (test code = NT%) 60.2 % 56.0-77.0 N IMMATURE GRANULOCYTE % (test 0.3 % 0.0-2.0 N code = IG%) LYMPHOCYTE % (test code = LY%) 26.4 % 14.0-32.0 N MONOCYTE % (test code = MO%) 11.3 % 4.8-9.0 H EOSINOPHIL % (test code = EO%) 1.7 % 0.3-3.7 N BASOPHIL % (test code = BA%) 0.1 % 0.0-2.0 N NUCLEATED RBC % (test code = 0.0 % 0-0 N NRBC%) NEUTROPHIL # (test code = NT#) 4.52 x10 3/uL 2.0-7.6 N IMMATURE GRANULOCYTE # (test 0.02 x10 3/uL 0.00-0.03 N code = IG#) LYMPHOCYTE # (test code = LY#) 1.98 x10 3/uL 1.0-3.8 N MONOCYTE # (test code = MO#) 0.85 x10 3/uL 0.1-0.8 H EOSINOPHIL # (test code = EO#) 0.13 x10 3/uL 0.0-0.2 N BASOPHIL # (test code = BA#) 0.01 x10 3/uL 0.0-0.2 N NUCLEATED RBC # (test code = 0.00 x10 3/uL 0.0-0.1 N NRBC#) MANUAL DIFF REQUIRED (test code NO = MDIFF) [id number] 13:28:00 Test Item Value Reference Range Interpretation Comments ACT-JOANNE (test code 309 SEC 74-137 H Perform ed by certified = ACTI) 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 at [facility] - XR CHEST 1 [id number] 00:00:00 [facility] : 1935 Sex: M FAX:Leonard García MD [phone] [place]: St: ADM FAX: Juan Alberto Landeros MD [phone] FAX: Miguelangel Graves [phone] Name: PUJAJOELLEN [facility] : 1935 Age/S: 85/M [address] [place] [address] Unit #: [id number] Loc: [place] [address] Phys: Miguelangel Graves [facility] Acct: [id number] Dis Date: Status: ADM IN PHONE #: [phone] Exam Date: 02/26/20215 FAX #: [phone] Reason: WATCHMAN EXAMS: CPT CODE: [id number] XR CHEST 1 V 85982 PROCEDURE INFORMATION: Exam: XR Chest Exam date and time:02/26/2021 3:20 PM Age: 85 years old Clinical [...] Unremarkable. No cardiomegaly. Bones/joints: Unremarkable. IMPRESSION: No evidence of active pulmonary disease, other acute findings change since the previous study. at 1624 Reported and signed by: Johnny Sanz M.D. CC: Leonard Whyte MD; Juan Alberto Putnam MD; Miguelangel Graves Technologist: Lydia Arnold RT(R) Trnscrd Date/Time/By: 02/26/2021 (7575) : By: [email or web address] Orig Print D/T: S: 02/26/2021 (5451) PAGE 1 Signed ReportNovel Coronavirus 2019 Inhouse 2021-02-24 19:52:00 Test Item Value Reference Range Interpretation [...] inations, antiviraltherap eutics, antibiotics, chemotherapeuti c orimmunosuppres jaicnto drugs have not been e valuated for effectson d etection. Results are for the identification of SARS-CoV-2 RNA usingreal-time (RT) polymerase maeve n reaction (PCR) technolog yfor the qualitative det ection of nucleic acids f rom ozyGVXX-BdV-[id number] v irus and diagnosis of SA RS-CoV-2 virusinfection. It is an Emergency Use Authorization ( EUA) testauthorized by the U.S. FDA. BASIC METABOLIC [id number] 10:43:00 Test Item Value Reference Range Interpretation [...] code = 9.6 mg/dL 8.0-10.5 N CA) [id number] 10:43:00 Test Item Value Reference Range Interpretation Comments PREALBUMIN (test code = PREALB) 17.9 mg/dL 16.0-40.0 N PROTHROMBIN [id number] 10:21:00 Test Item Value Reference Range Interpretation Comments PROTHROMBIN TIME 12.7 SECONDS 9.3-12.9 N PATIENT (test code = PTP) INTERNATIONAL NORMAL 1.1 0.8-1.2 N TARGET INR BY RATIO (test code = INDICATIO N Indication INR) INR1. Prophylax is of venous thrombos is 2.0 - 3.0 (orthoped ic surgery), Proph ylaxis of venous throm bosis (other than hig h-risk surgery), Treat ment of Deep Vein Thrombosis/Pulm onary Embolism, Preve ntion of systemic emb olism - Tissue heart va lves, Acute Myocardia l Infarction (to prevent systemic emboli sm), Valvular heart disease, Atrial Fibrillation, Bileaflet mecha nical valve in aortic position.2. Mec hanical prosthetic valv es (high risk), 2. 5 - 3.5 Presence of Lup us Anticoagulant o r Antiphospholipi d Antibodies, Pre vention of systemic emb olism - Acute Myocardia l Infarction (to prevent recurrent infar ct). CBC W/AUTO [id number] 10:21:00 Test Item Value Reference Range Interpretation [...] MANUAL DIFF REQUIRED (test code NO = IFF) - XR CHEST 2 [id number] 00:00:00 [facility] : 1935 Sex: M FAX:Leonard García MD [phone] Simpson: St: PRE FAX: Juan Alberto Landeros MD [phone] Name: JOELLEN LUO [facility] : 1935 Age/S: 85/M [address] [place] [address] Unit #: [id number] Loc: [place] [address] Phys: Juan Alberto Putnam MD Acct: [id number] Dis Date: Status: PRE SDC PHONE #: [phone] Exam Date: 02/24/2021 1026 FAX #: [phone] Reason: PREOP EXAMS: CPT CODE: [id number] XR CHEST 2 V 44435 PROCEDURE INFORMATION: Exam: XR Chest Exam date and time: 02/24/2021 10:21 AM Age: 85 years old Clinical indication: Pre-operative exam; Respiratory screening exam; Additional info: Preop TECHNIQUE: Imagingprotocol: XR of the chest. Views: 2 views. COMPARISON: No relevant prior studies available. FINDINGS: Lungs: No evidence of active pulmonary disease or other pulmonary abnormality. Pleural spaces: Unremarkable. No pleural effusion. No pneumothorax. Heart/Mediastinum: Unremarkable. No cardiomegaly. Bones/joints: Unremarkable. IMPRESSION: No acute findings. at 1034 Reported and signed by: Johnny Sanz M.D. CC: Leonard Whyte MD; Juan Alberto Putnam MD Technologist: Lydia Arnold RT(R) Trnscrd Date/Time/By: 02/24/2021 (103) : By:[email or web address] Orig Print D/T: S: 02/24/2021 (7804) PAGE 1 Signed ReportRAD, CHEST, 1 VIEW, NON [id number] 09:19:00Reason for exam:->pneumoniaShould this be performed at the bedside?->YesCO[facility] : 1935 Sex: MFINAL REPORT Chest, 1 view, 01/13/2021 6:11 AM. History: Pneumonia. Comparison: None available. Discussion: The cardiac silhouette is within normal limits. Bilateral interstitial and patchy airspace opacities are present. There is no pneumothorax or pleural effusion. The soft tissues and osseous structures are intact. IMPRESSION: Findings suggestive of atypical pneumonia. Signed: Sergio Llamaseptyson Verified Date/Time: 01/13/2021 09:19:20 Reading Location: [facility] Radiology Reading Room COMPREHENSIVE METABOLIC [id number] 05:34:25 Test Item Value Reference Range Interpretation [...] S NOT APPLICABLE FOR DIALYSIS PATIEN TS. 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 Crane Engine Operator ID - [id number] ID - DULB07Mbygihap ID - IRUV39Hfeaivrf ID - BVAT52Qmpxjiik ID - YDLZ14Juunamlu ID - QJZM01Mjoaklcu ID - ABHT05Jimeiyxh ID - UUOU44Zrxucqsy ID - FTLR26Jqxcnxuk ID - CMTQ63Ydcudzfx ID - CSZI10Xodkiibc ID - GHLX77Vbqexbsd ID - OFRJ79Wqsssbsf ID - KDBM59Exmjrcem ID - CFNT76Jkletaph ID - [id number] 05:33:55 Test Item Value Reference Range Interpretation Comments MAGNESIUM (BEAKER) (test code = 2.6 mg/dL 1.5-3.0 627) Wrecking Crane Engine Operator ID - [id number] ID - SNXK89Acqzpcff ID - HUDH82Fmmkjelo ID - [id number] CBC W/PLT COUNT & AUTO [id number] 05:12:29 Test Item Value Reference Range Interpretation [...] 1605 U/L 40-250 H code = 380) Wrecking Crane Engine Operator ID - [id number] METABOLIC [id number] 06:14:55 Test Item Value Reference Range Interpretation [...] S NOT APPLICABLE FOR DIALYSIS PATIEN TS. Wrecking Crane Engine Operator ID - [id number] ID - QVLE72Vfcczvyr ID - RGXG42Qtuynknp ID - MQMY74Nerjehjs ID - QMAX49Lofaejfd ID - SGLL65Mpijlqjg ID - FMSY49Mmfirvsh ID - RRTS51Ecduidzl ID - NWNZ79Vjajkiug ID - YKVR53HWZGKVL FUNCTION [id number] 06:14:54 Test Item Value Reference Range Interpretation [...] (test code = 45 U/L 5-50 347) Wrecking Crane Engine Operator ID - TRWP92Bryxissz ID - VAKH00Baqkdjny ID - RRIX95Jlurhecp ID - TQMD52Gfonbedu ID - MGHH91Wbtiemaz ID - MLVK63Tjwuvjsv ID - [id number] PANEL 2021-01-12 06:14:14 Test Item Value Reference Range Interpretation Comments TRIGLYCERIDES (BEAKER) (test code = 89 mg/dL 540) CHOLESTEROL (BEAKER) (test code = 121 mg/dL 631) HDL CHOLESTEROL (BEAKER) (test code 44 mg/dL = 976) LDL CHOLESTEROL CALCULATED (BEAKER) 59 mg/dL (test code = 633) Triglyceride Reference Range: Low Risk <150 Borderline 150-199 High Risk 200- 499 Very High Risk >=500Cholesterol Reference Range: Low Risk <200 Borderline 200-239 High Risk >240HDL Cholesterol Reference Range: Low Risk >=60 High Risk <40LDL Cholesterol Reference Range: Optimal <100 Near Optimal 100-129 Borderline 130-159 High 160-189 Very High >=190 Wrecking Crane Engine Operator ID - XVJH58Gpzqlxrv ID - GJDD68Zrrlrkww ID - PIHC05Jspmcslt ID - KEGE13Umrqcixx ID - LUUG83Wiazjftb ID - DVGR16KID W/PLT COUNT & AUTO [id number] 06:10:52 Test Item Value Reference Range Interpretation [...] PERCENT (BEAKER) (test code = 2801) PROTHROMBIN TIME/[id number] 06:09:11 Test Item Value Reference Range Interpretation Comments PROTIME (BEAKER) 10.9 seconds 9.3-12.0 Final Infor mation (test code = 759) (Auto Outp ut) INR (BEAKER) (test 0.98 See_Comment Final Inf ormation code = 370) (Auto Output) [Automated mess age] The system [employer] generated this result transmitted ref erence range: <=5.90. The reference range was not used to int erpret this result as normal/abnormal . RECOMMENDED COUMADIN/WARFARIN INR THERAPY RANGESSTANDARD DOSE: 2.0 - 3.0 Includes: PROPHYLAXIS for venous thrombosis, systemic embolization; TREATMENT for venous thrombosis and/or pulmonary embolus.HIGH RISK: Target INR is 2.5-3.5 for patients with mechanical heart valves.CT, ABDOMEN, WITHOUT CONTRAST 2021-01-12 00:11:00Unlisted Reason for Exam - Click Yes and Enter Reason Below- >YesUnlisted Reason for Exam->postop (spine surgery) ileusWill this procedure require oral contrast?->No NOEMÍ [facility] : 1935 Sex: MFINAL REPORT EXAM/TECHNIQUE: CT of the abdomen without contrast. Dose modulation, iterative reconstruction, and/or weight based adjustment of the mA/kV was utilized to reduce the radiation dose to as low as reasonably achievable. INDICATION: Bowel obstruction. Recent surgery. COMPARISON: None. FINDINGS: Lower thorax: Small bilateral pleural effusions. Left lower lobe consolidation and nodular opacities are suspicious for aspiration. Liver: Unremarkable. Biliary: The gallbladder surgically absent. Unremarkable appearance of the biliary ducts. Spleen: Unremarkable. Pancreas: Unremarkable. Adrenals: Unremarkable. Kidneys: Symmetric bilateral nephrograms. No hydronephrosis. No focal renal mass. Bowel: Normal appearance of the colon. Appendix is normal in appearance. The small bowel and stomach are normal in appearance without findings of obstruction. Lymph nodes: No lymphadenopathyby size criteria. Mesentery: No ascites. No pneumoperitoneum. [...] with a posterior epidural fluid and air collectionlikely representing postoperative seroma. Additionally there is air in the retroperitoneum, right psoas muscle, and left abdominal wall. Signed: Michael Thomson MDReport Verified Date/Time: 01/12/2021 00:11:52 [id number] 13:07:34 Test Item Value Reference Range Interpretation Comments MAGNESIUM (BEAKER) (test code = 2.4 mg/dL 1.5-3.0 627) Wrecking Crane Engine Operator ID - DSENSONOperator ID - DSENSONOperator ID - DSENSONOperator ID - DSENSONRAD, ABDOMEN/KUB 1 VIEW [id number] 11:11:00Reason for exam:->BOWEL OBSTRUCTIONCOALINGA REGIONAL MEDICAL [facility]ENTERName: [facility] : 1935 Sex: MFINAL REPORT ONE VIEW ABDOMEN HISTORY: Bowel destruction COMPARISON:None FINDINGS:2 supine AP images of the abdomen were obtained. Nasogastric tube tip is in the region of the body of the stomach. There is gas in nondilated stomach. There are postoperative changes in the lumbar spine. Some surgical chauncey overlie this. There is gas in several nondilated small bowel loops as well as in portions of nondilated large intestine. Given the evidence of recent surgery, these changes may reflect mild adynamic ileus. No dilated loops of large or small intestine are identified. The lung bases appear clear. Signed: Lenoard Nguyeneport Verified Date/Time: 01/11/2021 11:11:07 Reading Location: [facility] C0[facility] Transitional Reading Room Electronically signed by: LEONARD NGUYEN MD on 111:11 AMCREATINE KINASE (CK)2021-01-11 10:39:24 Test Item Value Reference Range Interpretation Comments CREATINE KINASE TOTAL (BEAKER) (test 3381 U/L 40-250 H code = 380) Wrecking Crane Engine Operator ID - DSENSONTROPONIN [id number] 07:53:32 Test Item Value Reference Range Interpretation [...] failure, acidosis, acute neurological disease, and persistent tachyarrhythmia.Wrecking Crane Engine Operator ID - DSENSONCBC W/PLT COUNT & AUTO [id number] 07:42:27 Test Item Value Reference Range Interpretation [...] 3034 U/L 40-250 H code = 380) Wrecking Crane Engine Operator ID - DSENSONHEPATIC FUNCTION [id number] 07:30:25 Test Item Value Reference Range Interpretation [...] Specimen slightly (test code = 347) hemolyzed Wrecking Crane Engine Operator ID - QGFQ42Nhplfqbk ID - UVWJ90Jzjbprgs ID - KHDA09Ctecscuv ID - LDJM64Wirghrkj ID - MOMR31Wizlrugy ID - DSENSONOperator ID - DSENSON COMPREHENSIVE METABOLIC [id number] 07:30:24 Test Item Value Reference Range Interpretation [...] S NOT APPLICABLE FOR DIALYSIS PATIEN TS. Wrecking Crane Engine Operator ID - EYUZ56Quqhdlkc ID - KNHN88Gjngmqod ID - FUQQ45Yfrwmqxk ID - CMPK97Esczngje ID - IIAL96Qvknaqid ID - NXCR07Jhpogfwv ID - BSMO41Twnccuce ID - LOSE25Wlqssata ID - OGGR39Oiapihza ID - LEUV59YVVVP [id number] 07:29:44 Test Item Value Reference Range Interpretation Comments TRIGLYCERIDES (BEAKER) 83 mg/dL Speci men slightly (test code = 540) hemolyzed CHOLESTEROL (BEAKER) 102 mg/dL Specime n slightly (test code = 631) hemolyzed HDL CHOLESTEROL (BEAKER) 48 mg/dL (test code = 976) LDL CHOLESTEROL 37 mg/dL CALCULATED (BEAKER) (test code = 633) Triglyceride Reference Range: Low Risk <150 Borderline 150-199 High Risk 200- 499 Very High Risk >=500Cholesterol Reference Range: Low Risk <200 Borderline 200-239 High Risk >240HDL Cholesterol Reference Range: Low Risk >=60 High Risk <40LDL Cholesterol Reference Range: Optimal <100 Near Optimal 100-129 Borderline 130-159 High 160-189 Very High >=190 Wrecking Crane Engine Operator ID - OHIC47Hoeenudv ID - ZOAJ61Pnqzrhie ID - BZYC68Vldojtnt ID - GGSM79Rtmlextg ID - ZVDU21Jqdmohmd ID - DSENSONPROTHROMBIN TIME/[id number] 07:18:59 Test Item Value Reference Range Interpretation Comments PROTIME (BEAKER) 10.9 seconds 9.3-12.0 Final Infor mation (test code = 759) (Auto Outp ut) INR (BEAKER) (test 0.98 See_Comment Final Inf ormation code = 370) (Auto Output) [Automated mess age] The system [employer] generated this result transmitted ref erence range: <=5.90. The reference range was not used to int erpret this result as normal/abnormal . RECOMMENDED COUMADIN/WARFARIN INR THERAPY RANGESSTANDARD DOSE: 2.0 - 3.0 Includes: PROPHYLAXIS for venous thrombosis, systemic embolization; TREATMENT for venous thrombosis and/or pulmonary embolus.HIGH RISK: Target INR is 2.5-3.5 for patients with mechanical heart valves.CBC W/PLT COUNT & AUTO [id number] 06:38:05 Test Item Value Reference Range Interpretation [...] PERCENT (BEAKER) (test code = 2801) TROPONIN [id number] 05:40:58 Test Item Value Reference Range Interpretation [...] failure, acidosis, acute neurological disease, and persistent tachyarrhythmia.Wrecking Crane Engine Operator ID - [id number] KINASE (CK) 2021-01-11 05:30:58 Test Item Value Reference Range Interpretation Comments CREATINE KINASE TOTAL (BEAKER) (test 2833 U/L 40-250 H code = 380) Wrecking Crane Engine Operator ID - [id number] FUNCTION [id number] 05:04:02 Test Item Value Reference Range Interpretation [...] (test code = 33 U/L 5-50 347) Wrecking Crane Engine Operator ID - ONAQ05Zndjaals ID - YUIR13Oxsjjoic ID - EZGY83Jdpupcdf ID - FFRR36Ettneerl ID - PRQO01Svnzqddb ID - EXMW44Yruxefjt ID - ZRYU52FXMPHGURRYCDJ METABOLIC [id number] 05:04:02 Test Item Value Reference Range Interpretation [...] S NOT APPLICABLE FOR DIALYSIS PATIEN TS. Wrecking Crane Engine Operator ID - OPVB03Nuuqvmqo ID - PYPE34Vpvxhcfl ID - BXHL14Jyabeukq ID - CJYE99Aoarjzye ID - TWGK51Toetmlse ID - WLEE14Ivtpgxby ID - LKQK77Auqiaweb ID - YOQD67Ntaonscv ID - GPPP18Wkhxcxwc ID - TAMN32FKJIS [id number] 05:03:21 Test Item Value Reference Range Interpretation Comments TRIGLYCERIDES (BEAKER) (test code = 82 mg/dL 540) CHOLESTEROL (BEAKER) (test code = 99 mg/dL 631) HDL CHOLESTEROL (BEAKER) (test code 40 mg/dL = 976) LDL CHOLESTEROL CALCULATED (TripleLiftAKER) 43 mg/dL (test code = 633) Triglyceride Reference Range: Low Risk <150 Borderline 150-199 High Risk 200- 499 Very High Risk >=500Cholesterol Reference Range: Low Risk <200 Borderline 200-239 High Risk >240HDL Cholesterol Reference Range: Low Risk >=60 High Risk <40LDL Cholesterol Reference Range: Optimal <100 Near Optimal 100-129 Borderline 130-159 High 160-189 Very High >=190 Wrecking Crane Engine Operator ID - WCDQ82Lnywwipq ID - YGAU54Mynehexv ID - YPZK41Dnmryntr ID - WHBG17Smxonmam ID - COYC37Lqqjnswl ID - ONTL61HDEPTNPACXP TIME/[id number] 04:36:27 Test Item Value Reference Range Interpretation Comments PROTIME (MICHAEL) 11.3 seconds 9.3-12.0 Final Infor mation (test code = 759) (Auto Outp ut) INR (BEAKER) (test 1.02 See_Comment Final Inf ormation code = 370) (Auto Output) [Automated mess age] The system [employer] generated this result transmitted ref erence range: <=5.90. The reference range was not used to int erpret this result as normal/abnormal . RECOMMENDED COUMADIN/WARFARIN INR THERAPY RANGESSTANDARD DOSE: 2.0 - 3.0 Includes: PROPHYLAXIS for venous thrombosis, systemic embolization; TREATMENT for venous thrombosis and/or pulmonary embolus.HIGH RISK: Target INR is 2.5-3.5 for patients with mechanical heart valves.MR BRAIN W WO [id number] 19:35:33 No acute intracranial abnormality. Moderate chronic microvascular ischemic changes. No flow-limiting intracranial stenosis seen within the limitations oftechnique. The visualized cervical vessels are patent noting that aortic arch andproximal great vessels are excluded from the axzrx-ia-mkqx. Preliminary Report Dictated by Resident: Sanju Bourne I, Rigo Blancas MD., have reviewed this study and agree [...] white matter and kip, likely reflecting moderatemicrovascular ischemicchanges. No abnormal gradient blooming. No abnormalintracranial enhancement. The T2 flow voids for the major intracranial vessels are unremarkable. Noabnormal fluid signal is present in the left mastoid air cells. Mucosalthickening of the left frontal sinus and anterior ethmoidal air cells.Trace fluidsignal in the right mastoid air cells. The paranasal sinusesare otherwise clear. MRA NECK: Images are severely degraded by motion artifacts.The origins of the greater arch vessels are not visualized. Within limits of the evaluation the common carotid arteries are patent.The carotid bulbs/ICA origins are patent without high-grade stenosis seenat bifurcation.The vertebral arteries are patent. MRA CACHIL DEHE OF OLSEN: Images degraded by motion artifact.Left PICA origin is normally visualized. Right PICA AICA complex issuspected. The basilar artery is normal in caliber. The superior cerebellararteries arepatent. The posterior cerebral arteries appear grossly patentwithin limitations of technique. Left P-comm seen. No definite right P-commseen. The distal cervical, petrous, cavernous and supraclinoid internal carotidarteries are patent. The anterior and middle cerebral arteries are patent.An anterior communicating artery is visualized. [facility], Radiant Results Inft User - 08/13/2020 2:36 PM CDTFormattingof this note might be different from the original.MR STROKE ANGIOGRAM HEAD WO CONTRAST, MR ANGIOGRAMNECK WO CONTRAST, MRBRAIN W WO CONTRASTCOMPARISON: None.HISTORY: [...] left frontal sinus and anterior ethmoidal air cells.Tra ce fluid signal in the right mastoid air cells. The paranasal sinusesare otherwise clear.MRA NECK:Images are severely degraded by motion artifacts.The origins of the greater arch vessels are not visualized.Within limits of the evaluation the common carotid arteries are patent.The carotid bulbs/ICA origins are patent without high-grade stenosis seenat bifurcation.The vertebral arteries are patent. MRACIRCLE OF OLSEN:Images degraded by motion artifact.Left PICA origin is normally visualized. Right PICA AICA complex issuspected. The basilar artery is normal in caliber. The superior cerebellararteries are patent. The posterior cerebral arteries appear [...] andproximal great vessels are excluded from the uhjsb-ta-dtql.Preliminary Report Dictated by Resident: Deepa Lynch MD., have reviewed this study and agree with theabove report. [facility] WO [id number] 19:35:33 No acute intracranial abnormality. Moderate chronic microvascular ischemic changes. No flow-limiting intracranial stenosis seen within the limitations oftechnique. The visualized cervical vessels are patent noting that aortic arch andproximal great vessels are excluded from the hzddn-bq-luma. Preliminary Report Dictated by Resident: Sanju Bourne I, Rigo Blancas MD., have reviewed this study and agree [...] white matter and kip, likely reflecting moderatemicrovascular ischemicchanges. No abnormal gradient blooming. No abnormalintracranial enhancement. The T2 flow voids for the major intracranial vessels are unremarkable. Noabnormal fluid signal is present in the left mastoid air cells. Mucosalthickening of the left frontal sinus and anterior ethmoidal air cells.Trace fluidsignal in the right mastoid air cells. The paranasal sinusesare otherwise clear. MRA NECK: Images are severely degraded by motion artifacts.The origins of the greater arch vessels are not visualized. Within limits of the evaluation the common carotid arteries are patent.The carotid bulbs/ICA origins are patent without high-grade stenosis seenat bifurcation.The vertebral arteries are patent. MRA CACHIL DEHE OF OLSEN: Images degraded by motion artifact.Left PICA origin is normally visualized. Right PICA AICA complex issuspected. The basilar artery is normal in caliber. The superior cerebellararteries arepatent. The posterior cerebral arteries appear grossly patentwithin limitations of technique. Left P-comm seen. No definite right P-commseen. The distal cervical, petrous, cavernous and supraclinoid internal carotidarteries are patent. The anterior and middle cerebral arteries are patent.An anterior communicating artery is visualized. [facility], Radiant Results Inft User - 08/13/2020 2:36 PM CDTFormattingof this note might be different from the original.MR STROKE ANGIOGRAM HEAD WO CONTRAST, MR ANGIOGRAMNECK WO CONTRAST, MRBRAIN W WO CONTRASTCOMPARISON: None.HISTORY: [...] demonstrated in the deepbihemispheric white matter and ikp, likely reflecting moderatemicrovascular ischemic changes. No abnormal gradient blooming. No abnormalintracranial enhancement.The T2 flow voids for the major intracranial vessels are unremarkable. Noabnormal fluid signal is present in the left mastoid air cells. Mucosalthickening of the left frontal sinus and anterior ethmoidal air cells.Tra ce fluid signal in the right mastoid air cells. The paranasal sinusesare otherwise clear.MRA NECK:Images are severely degraded by motion artifacts.The origins of the greater arch vessels are not visualized.Within limits of the evaluation the common carotid arteries are patent.The carotid bulbs/ICA origins are patent without high-grade stenosis seenat bifurcation.The vertebral arteries are patent. MRACIRCLE OF OLSEN:Images degraded by motion artifact.Left PICA origin is normally visualized. Right PICA AICA complex issuspected. The basilar artery is normal in caliber. The superior cerebellararteries are patent. The posterior cerebral arteries appear [...] andproximal great vessels are excluded from the [id number].Preliminary Report Dictated by Resident: Deepa Lynch MD., have reviewed this study and agree with theabove report. [facility] [id number] 19:35:33 No acute intracranial abnormality. Moderate chronic microvascular ischemic changes. No flow-limiting intracranial stenosis seen within the limitations oftechnique. The visualized cervical vessels are patent noting that aortic arch andproximal great vessels are excluded from the [id number]. Preliminary Report Dictated by Resident: Rigo Fuchs [...] white matter and kip, likely reflecting moderatemicrovascular ischemicchanges. No abnormal gradient blooming. No abnormalintracranial enhancement. The T2 flow voids for the major intracranial vessels are unremarkable. Noabnormal fluid signal is present in the left mastoid air cells. Mucosalthickening of the left frontal sinus and anterior ethmoidal air cells.Trace fluidsignal in the right mastoid air cells. The paranasal sinusesare otherwise clear. MRA NECK: Images are severely degraded by motion artifacts.The origins of the greater arch vessels are not visualized. Within limits of the evaluation the common carotid arteries are patent.The carotid bulbs/ICA origins are patent without high-grade stenosis seenat bifurcation.The vertebral arteries are patent. MRA CACHIL DEHE OF OLSEN: Images degraded by motion artifact.Left PICA origin is normally visualized. Right PICA AICA complex issuspected. The basilar artery is normal in caliber. The superior cerebellararteries arepatent. The posterior cerebral arteries appear grossly patentwithin limitations of technique. Left P-comm seen. No definite right P-commseen. The distal cervical, petrous, cavernous and supraclinoid internal carotidarteries are patent. The anterior and middle cerebral arteries are patent.An anterior communicating artery is visualized. [facility], Radiant Results Inft User - 08/13/2020 2:36 PM CDTFormattingof this note might be different from the original.MR STROKE ANGIOGRAM HEAD WO CONTRAST, MR ANGIOGRAMNECK WO CONTRAST, MRBRAIN W WO CONTRASTCOMPARISON: None.HISTORY: [...] left frontal sinus and anterior ethmoidal air cells.Tra ce fluid signal in the right mastoid air cells. The paranasal sinusesare otherwise clear.MRA NECK:Images are severely degraded by motion artifacts.The origins of the greater arch vessels are not visualized.Within limits of the evaluation the common carotid arteries are patent.The carotid bulbs/ICA origins are patent without high-grade stenosis seenat bifurcation.The vertebral arteries are patent. MRACIRCLE OF OLSEN:Images degraded by motion artifact.Left PICA origin is normally visualized. Right PICA AICA complex issuspected. The basilar artery is normal in caliber. The superior cerebellararteries are patent. The posterior cerebral arteries appear [...] andproximal great vessels are excluded from the [id number].Preliminary Report Dictated by Resident: Deepa Lynch MD., have reviewed this study and agree with theabove report. [facility]
[2022-12-20 17:32] LABS: Absolute Lymphocytes (CBC) 1.7 K/uL (0.7-4.9); Hematocrit 44.1 % (39.6-49.0); Lymphocytes % 25.7 % (15.3-44.8); MCV 90.5 fL (80-100); MPV 8.4 fL (7.6-11.3); Platelets 261 thou/uL (152-406); RBC Red Blood Cell Count 4.88 M/uL (4.33-5.43)
[2022-12-20] MEDS ORDERED: NA CHLORIDE 0.9% 500 ML ONE (17:40)
[2022-12-20 17:47] LABS: Potassium 3.9 mEq/L (3.5-5.1)
--- NOTE | 2022-12-20 18:09 | EDPHYS ---
Physician Documentation [facility] Name: Roger Ho Age: 87 yrs Sex: Male : 1935 Arrival Date: 12/20/2022 Time: 17:01 Bed 18 Private MD: ED Physician Jose Rafael Vu HPI: 12/20 17:16 This 87 yrs old Male presents to ER via Wheelchair with complaints of COVID +, kb Shortness Of Breath. 17:16 Patient is a 87-year-old male who presents with dyspnea, cough, malaise, fatigue, kb weakness, decreased appetite for up to 10 days. States he tested positive for COVID 5 days ago and has been taking Paxlovid but not getting any better. Reports difficulty talking because of shortness of breath.. Historical: - Allergies: 17:10 Codeine; ss 17:10 Morphine; ss 17:10 PENICILLINS; ss - PMHx: 17:10 COPD; Hyperlipidemia; Hypertension; ss - Immunization history:: Client reports receiving the 2nd dose of the Covid vaccine. - Social history:: Smoking status: Patient denies any tobacco usage or history of. ROS: 17:15 Constitutional: Negative for fever, chills, and weight loss, kb 17:15 Constitutional: Positive for fatigue, malaise, 17:15 Respiratory: Positive for cough, shortness of breath, 17:15 Neuro: Positive for weakness, 17:15 All other systems are negative, Exam: 17:15 Constitutional: This is a well developed, well nourished patient who is awake, alert, kb and in no acute distress. Head/Face: Normocephalic, atraumatic. ENT: Moist Mucous membranes Cardiovascular: Regular rate Respiratory: Respirations even and unlabored. No increased work of breathing. Talking in full sentences Abdomen/GI: Soft, non-tender. No distention Skin: Warm, dry with normal turgor. Normal color. MS/ Extremity: Pulses equal, no cyanosis. Neurovascular intact. Full, normal range of motion. Neuro: Awake and alert, GCS 15, oriented to person, place, time, and situation. Moves all extremities. Normal gait. 17:41 ECG was reviewed by the Attending Physician. kb Vital Signs: 17:07 BP 98 / 59; Pulse 92; Resp 18; Temp 97.7(TE); Pulse Ox 92% ; Weight 99.79 kg; Height 6 ss ft. 3 in. ; Pain 0/10; 17:31 BP 93 / 57; Pulse 80; Temp 98.3(O); Pulse Ox 96% on R/A; tm6 18:35 BP 105 / 60; Pulse 82; Resp 17; Pulse Ox 96% on R/A; tm6 19:00 BP 128 / 69; Pulse 85; Resp 17; Pulse Ox 98% ; vc1 20:00 BP 116 / 64; Pulse 82; Resp 17; Temp 98; Pulse Ox 98% ; vc1 21:00 BP 122 / 72; Pulse 83; Resp 16; Pulse Ox 96% ; vc1 17:07 Body Mass Index 27.50 (99.79 kg, 190.5 cm) ss 17:07 Pain Scale: Adult ss MDM: 17:04 Patient medically screened. kb 17:16 Differential diagnosis: flu, covid, uri, pneumonia. Data reviewed: vital signs, nurses kb notes. 18:07 Management of patient was discussed with the following: Hospitalist: Dr Paiz accepts pt kb for admission. Counseling: I had a detailed discussion with the patient and/or guardian regarding the historical points, exam findings, and any diagnostic results supporting the discharge/admit diagnosis, lab results, radiology results, the need for further work-up and treatment in the hospital. 19:27 Consideration of Admission/Observation Patient was admitted/placed on observation. kb Escalation of care including admission/observation considered. 12/20 17:09 Order name: CBC with Diff; Complete Time: 17:33 kb 12/20 17:09 Order name: Basic Metabolic Panel; Complete Time: 17:54 kb 12/20 18:21 Order name: Urinalysis w/ reflexes kb 12/20 20:16 Order name: CBC with Automated Diff EDMS 12/20 20:16 Order name: CBC with Automated Diff EDMS 12/20 20:16 Order name: Comprehensive Metabolic Panel EDMS 12/20 20:16 Order name: Comprehensive Metabolic Panel EDMS 12/20 17:09 Order name: Chest Single View XRAY; Complete Time: 18:53 kb 12/20 17:09 Order name: EKG; Complete Time: 17:10 kb 12/20 17:09 Order name: EKG - Nurse/Tech; Complete Time: 17:44 kb EC:41 Rate is 84 beats/min. Rhythm is regular. QRS [place] is Normal. MA interval is normal at kb 148 msec. QRS interval is normal at 84 msec. QT interval is prolonged at 529 msec. Administered Medications: 17:31 Drug: NS 0.9% IV 500 ml IV at bolus once Route: IV; Rate: bolus; Site: right tm6 antecubital; Disposition Summary: 12/20/22 18:08 Hospitalization Ordered Notes: Hospitalization Status: Inpatient Admission kb Provider: Tarik Paiz Condition: Stable kb Problem: new kb Symptoms: are unchanged kb Bed/Room Type: Standard Location: Telemetry/MedSurg (Inpatient)(12/20/22 23:24) Room Assignment: [facility](12/20/22 23:24) Diagnosis - SARS-associated coronavirus as the cause of diseases classified elsewhere kb - Acute kidney failure, unspecified kb Forms: - Medication Reconciliation Form kb - SBAR form kb - Leadership Thank You Letter kb Addendum: 12/22/2022 07:43 I was immediately available for consultation during this patient's visit. I did not e c2 personally see the patient or guide the patient's care.. Signatures: Dispatcher [employer] Belem Montgomery, OIL EXPERT-C OIL EXPERT-CkTejal Romero RN RN ss Garcia, Cindy, RN RN cg Corral, Edwin, MD MD ec2 Alfredo Gutierrez RN RN tm6 Corrections: (The following items were deleted from the chart) 12/20 17:11 17:10 Allergies: tramadol; ss ss 19:18 18:08 Telemetry/MedSurg (Inpatient) kb cg 19:18 18:08 kb cg 23:24 19:18 [facility] ER HOLD cg cg 23:24 19:18 ERHOLD- cg cg
--- NOTE | 2022-12-20 18:09 | ER ---
Nurse's Notes [facility] Name: Roger Ho Age: 87 yrs Sex: Male : 1935 Arrival Date: 12/20/2022 Time: 17:01 Bed 18 Private MD: Diagnosis: SARS-associated coronavirus as the cause of diseases classified elsewhere;Acute kidney failure, unspecified Presentation: 12/20 17:07 Chief complaint: Patient states: DX with COVID on 12/15. Pt reports that he is just not ss getting better. C/o decreased appetite and SOB. Coronavirus screen: Client denies travel out of the [place] in the last 14 days. Ebola Screen: Patient denies exposure to infectious person. Patient denies travel to an Ebola-affected area in the 21 days before illness onset. Initial Sepsis Screen: Does the patient meet any 2 criteria? No. Patient's initial sepsis screen is negative. Does the patient have a suspected source of infection? No. Patient's initial sepsis screen is negative. Risk Assessment: Do you want to hurt yourself or someone else? Patient reports no desire to harm self or others. Onset of symptoms was December 15, 2022. 17:07 Method Of Arrival: Wheelchair ss 17:07 Acuity: TERESITA 3 ss Triage Assessment: 19:00 General: Appears in no apparent distress. Behavior is calm, cooperative, appropriate vc1 for age. Respiratory: Reports shortness of breath at rest Onset: The symptoms/episode began/occurred gradually, the patient has mild shortness of breath. Historical: - Allergies: 17:10 Codeine; ss 17:10 Morphine; ss 17:10 PENICILLINS; ss - PMHx: 17:10 COPD; Hyperlipidemia; Hypertension; ss - Immunization history:: Client reports receiving the 2nd dose of the Covid vaccine. - Social history:: Smoking status: Patient denies any tobacco usage or history of. Screenin:42 [facility] ED Fall Risk Assessment (Adult) History of falling in the last 3 months, tm6 including since admission No falls in past 3 months (0 pts). Abuse screen: Denies threats or abuse. Denies injuries from another. Nutritional screening: No deficits noted. Tuberculosis screening: No symptoms or risk factors identified. Assessment: 17:42 Reassessment:. General: Appears in no apparent distress. Behavior is calm, cooperative, tm6 appropriate for age. Pain: Denies pain. Neuro: Level of Consciousness is awake, alert, obeys commands, Oriented to person, place, time, situation. Cardiovascular: Rhythm is sinus rhythm with unifocal PVCs. Respiratory: Airway is patent Respiratory effort is even, unlabored, Respiratory pattern is regular, symmetrical, Breath sounds are diminished. GI: Abdomen is round non-distended. : No signs and/or symptoms were reported regarding the genitourinary system. EENT: No signs and/or symptoms were reported regarding the EENT system. Derm: No signs and/or symptoms reported regarding the dermatologic system. Musculoskeletal: No signs and/or symptoms reported regarding the musculoskeletal system. 18:36 Reassessment: Patient appears in no apparent distress at this time. Patient and/or tm6 family updated on plan of care and expected duration. Pain level reassessed. Patient is alert, oriented x 3, equal unlabored respirations, skin warm/dry/pink. 19:27 Reassessment: No changes from previously documented assessment. Patient and/or family vc1 updated on plan of care and expected duration. Pain level reassessed. Patient is alert, oriented x 3, equal unlabored respirations, skin warm/dry/pink. 20:00 Reassessment: No changes from previously documented assessment. Patient and/or family vc1 updated on plan of care and expected duration. Pain level reassessed. Patient is alert, oriented x 3, equal unlabored respirations, skin warm/dry/pink. 21:00 Reassessment: No changes from previously documented assessment. Patient and/or family vc1 updated on plan of care and expected duration. Pain level reassessed. Patient is alert, oriented x 3, equal unlabored respirations, skin warm/dry/pink. 23:39 Reassessment: ER hold given room upstairs, report given to ELIZABETH Sorto. vc1 Vital Signs: 17:07 BP 98 / 59; Pulse 92; Resp 18; Temp 97.7(TE); Pulse Ox 92% ; Weight 99.79 kg; Height 6 ss ft. 3 in. ; Pain 0/10; 17:31 BP 93 / 57; Pulse 80; Temp 98.3(O); Pulse Ox 96% on R/A; tm6 18:35 BP 105 / 60; Pulse 82; Resp 17; Pulse Ox 96% on R/A; tm6 19:00 BP 128 / 69; Pulse 85; Resp 17; Pulse Ox 98% ; vc1 20:00 BP 116 / 64; Pulse 82; Resp 17; Temp 98; Pulse Ox 98% ; vc1 21:00 BP 122 / 72; Pulse 83; Resp 16; Pulse Ox 96% ; vc1 17:07 Body Mass Index 27.50 (99.79 kg, 190.5 cm) ss 17:07 Pain Scale: Adult ss ED Course: 17:03 Patient arrived in ED. im 17:04 Belem Shelton FNP-C is PHCP. kb 17:04 Jose Rafael Vu MD is Attending Physician. kb 17:10 Triage completed. ss 17:10 Arm band placed on left wrist. ss 17:16 Alfredo Gutierrez, ELIZABETH is Primary Nurse. tm6 17:31 Inserted saline lock: 20 gauge in right antecubital area, using aseptic technique. tm6 17:42 Patient has correct armband on for positive identification. Placed in gown. Bed in low tm6 position. Call light in reach. Provided Education on: cardiac monitoring. Client placed on continuous cardiac and pulse oximetry monitoring. NIBP monitoring applied. monitor and storage bin tender on. Door closed. Noise minimized. Warm blanket given. 17:42 No provider procedures requiring assistance completed. tm6 18:08 Randy Paiz is Hospitalizing Provider. kb 18:08 Tarik Paiz MD is Hospitalizing Provider. kb 18:25 Chest Single View XRAY In Process Unspecified. EDMS 21:12 Patient admitted, IV remains in place. vc1 Administered Medications: 17:31 Drug: NS 0.9% IV 500 ml IV at bolus once Route: IV; Rate: bolus; Site: right tm6 antecubital; Medication: 17:42 VIS not applicable for this client. tm6 Outcome: 18:08 Decision to Hospitalize by Provider. kb 21:12 Admitted to ER Hold. Please see [facility] for further documentation. vc1 21:12 Condition: good 21:12 Instructed on the need for admit, 12/21 00:11 Patient left the ED. vc1 Signatures: Dispatcher [employer] EDMS Belem Shelton FNP-C FNP-Ckb Blanchard, Shelby, RN RN Charity Patel RN RN vc1 Stacy Denis Tawney, RN RN tm6 Corrections: (The following items were deleted from the chart) 12/20 17:11 17:10 Allergies: tramadol; ss ss 17:20 17:07 BP 98 / 59; Pulse 92bpm; Resp 18bpm; Pulse Ox 100%; Temp 97.7F Temporal; 99.79 ss kg; Height 6 ft. 3 in.; BMI: 27.5; Pain 0/10, Adult; ss
--- NOTE | 2022-12-20 18:47 | RAD REPORT ---
EXAM DESCRIPTION: Frida Single View12/20/2022 6:23 pm CLINICAL HISTORY: cough COMPARISON: 2019 FINDINGS: The lungs appear clear of acute infiltrate. The heart is normal size IMPRESSION: No acute abnormalities displayed
[2022-12-20] MEDS ORDERED: ONDANSETRON 4 MG/2 ML VIAL IV PRN (20:12)
[2022-12-20] MEDS ORDERED: ACETAMINOPHEN 500 MG TAB PO PRN (20:12)
--- NOTE | 2022-12-20 20:12 | P.HP ---
Certification for Inpatient Patient admitted to: Observation With expected LOS: <2 Midnights Patient will require the following post-hospital care: None Practitioner: I am a practitioner with admitting privileges, knowledge of patient current condition, hospital course, and medical plan of care. Services: Services provided to patient in accordance with Admission requirements found in Title 42 Section 412.3 of the Code of Federal Regulations Patient History Date of Service: 12/20/22 Reason for admission: Generalized weakness secondary to COVID-19 History of Present Illness: Patient is a 87-year-old gentleman came to the hospital after he has been treated for COVID-19. Patient had treatment with Paxlovid. He has been still feeling weak and he is not able to taste anything. He does not feel like himself and feels disoriented and his equilibrium is off. Patient presented to the emergency room for further evaluation. In the emergency room patient was worked up and his only abnormal labs was patient had significant elevation of his creatinine compared to his baseline. However, it was less than 3:1 ratio so patient will remain observation we will gently hydrate him. We will continue some steroid therapy and will monitor his clinical status. I will get physical therapy evaluate the patient in the morning as well. We will get jeanmarie daigle to assist in discharge planning. Patient will need home health with physical therapy as he recovers from the general debility of having COVID-19. Anticipate patient going home for the next 24 hours. Allergies codeine Allergy (Verified 12/27/18 22:59) Rash Penicillins Allergy (Verified 12/27/18 22:59) Rash Home Medications: Aspirin [Aspirin EC 81 MG] 1 tab PO DAILY 12/28/18 Budesonide/Formoterol Fumarate [Symbicort 160-4.5 Mcg Inhaler] 1 puff IH PRN 12/28/18 Metoprolol Succinate [Toprol Xl*] 1 tab PO BID 12/28/18 Omeprazole [Prilosec] 1 cap PO DAILY 12/28/18 Simvastatin 1 tab PO DAILY 12/28/18 Valsartan 1 tab PO DAILY 12/28/18 - Past Medical/Surgical History Diabetic: No -: High cholesterol -: COPD -: GERD -: HTN -: Cholecystectomy -: Appendectomy -: Tonsillectomy -: Right eye surgery -: Bilateral feet sx -: Bilateral elbows sx -: Back surgery x 2 - Family History Mother Medical History: Cancer Notes: Lung CA Grandparents/aunt /uncles Medical History: Cancer Notes: Grandfather: stomach Cancer - Social History Alcohol use: No CD- Drugs: No Caffeine use: Yes Review of Systems 10-point ROS is otherwise unremarkable Physical Examination - Vital Signs Temperature: 98 F (reviewed) Blood Pressure: 130/80 Pulse: 80 Respirations: 18 Pulse Ox (%): 95 - Physical Exam General: Alert, In no apparent distress, Oriented x3 HEENT: Atraumatic, PERRLA, Mucous membr. moist/pink, EOMI, Sclerae nonicteric Neck: Supple, 2+ carotid pulse no bruit, No LAD, Without JVD or thyroid abnormality Respiratory: Clear to auscultation bilaterally, Normal air movement Cardiovascular: Regular rate/rhythm, Normal S1 S2 Gastrointestinal: Normal bowel sounds, Soft and benign, Non-distended, No tenderness Musculoskeletal: No clubbing, No swelling, No tenderness Integumentary: No rashes Neurological: Normal speech, Normal tone, Sensation intact, Cranial nerves 3-12 intact, Normal affect, Abnormal gait, Abnormal strength Lymphatics: No axilla or inguinal lymphadenopathy - Studies Laboratory Data (last 24 hrs) 12/20/22 12/20/22 17:17 17:17 WBC 6.50 Hgb 15.0 Hct 44.1 Plt Count 261 Sodium 132 L Potassium 3.9 BUN 50 H Creatinine 3.31 H Glucose 98 Assessment & Plan - Problems (Diagnosis) (1) Bronchitis due to COVID-19 virus Current Visit: Yes Status: Acute (2) Generalized weakness Current Visit: Yes Status: Acute (3) Dehydration Current Visit: No Status: Acute (4) HTN (hypertension) Current Visit: No Status: Acute - Plan Plan: 1. Continue with gentle hydration 2. Monitor renal function 3. Renal ultrasound 4. Low-dose Decadron 5. Increase nutritional supplementation with protein supplements 6. Monitor hemodynamics closely 7. We will hold off on nephrology consultation unless patient renal function worsens 8. GI DVT prophylaxis Discharge Plan: Home Plan to discharge in: 24 Hours - Advance Directives Does patient have a Living Will: Yes Does patient have a Durable POA for Healthcare: Yes - Code Status/Comfort Care Code Status Assessed: Yes Code Status: Full Code Critical Care: No Time Spent Managing PTS Care (In Minutes): 45
[2022-12-20] MEDS: NA CHLORIDE 0.9% 1,000 ML IV SCH (21:00)
[2022-12-20 21:04] VITALS: BMI 27.5
[2022-12-20] MEDS ORDERED: NA CHLORIDE 0.9% 1,000 ML ONE (21:35)
[2022-12-21] MEDS: dexAMETHasone 4 MG/ML VIAL IV SCH ×2 (01:35→09:32)
[2022-12-21 03:29] LABS: Absolute Lymphocytes (CBC) 1.1 K/uL (0.7-4.9); Hematocrit 39.3 % (39.6-49.0); Lymphocytes % 25.1 % (15.3-44.8); MCV 90.9 fL (80-100); MPV 8.6 fL (7.6-11.3); Platelets 216 thou/uL (152-406); RBC Red Blood Cell Count 4.32 M/uL (4.33-5.43)
[2022-12-21 03:41] LABS: Albumin 2.7 g/dL (3.4-5.0); Bilirubin Total 0.6 mg/dL (0.2-1.0); Potassium 4.2 mEq/L (3.5-5.1); Protein, Total 6.7 g/dL (6.4-8.2)
[2022-12-21] MEDS: NA CHLORIDE 0.9% 1,000 ML IV SCH (06:19)
[2022-12-21] MEDS ORDERED: PNEUMOCOCCAL VACCINE 0.5 ML IMVAC ONE (08:00)
--- NOTE | 2022-12-21 08:13 | RAD REPORT ---
EXAM DESCRIPTION: US - Renal Ultrasound-Complete - 12/21/2022 12:50 am CLINICAL HISTORY: [place] COMPARISON: Abdomen Pelvis W Contrast dated 12/27/2018 TECHNIQUE: Sonographic grayscale and color flow images of the kidneys and bladder were obtained. FINDINGS: Both kidneys are normal in size, shape, and echotexture. The right kidney measures 12.1 cm in length. No hydronephrosis, focal mass, or echogenic calculi. The left kidney measures 12.5 cm in length. No hydronephrosis, focal mass, or echogenic calculi. Left upper pole transcortical 4.7 cm anechoic cyst is stable compared to the prior CT. The urinary bladder is without gross abnormality seen. IMPRESSION: Stable left renal cyst. Otherwise normal renal ultrasound.
[2022-12-21] MEDS ORDERED: METOPROLOL XL 25 MG TAB PO SCH (09:00)
[2022-12-21] MEDS ORDERED: PANTOPRAZOLE 40MG TABLET PO SCH (09:00)
[2022-12-21] MEDS ORDERED: ATORVASTATIN 20 MG TAB PO SCH (09:00)
[2022-12-21 12:02] VITALS: O2SAT 98
[2022-12-21 13:58] VITALS: BP 109/57; TEMP 97.9
--- NOTE | 2022-12-23 17:33 | EKG ---
Test Date: 2022-12-20 Test Time: 17:36:22 Billet Heater Operator: OFFU MEASUREMENT RESULTS: Intervals: Rate: 84 CT: 148 QRSD: 84 QT: 448 QTc: 529 Farner: P: CT: 148 QRS: 91 T: 215 INTERPRETIVE STATEMENTS: Sinus rhythm with occasional premature ventricular complexes Lateral infarct, age undetermined Inferior infarct, age undetermined Prolonged QT Abnormal ECG Compared to ECG 12/27/2018 17:17:25 Ventricular premature complex(es) now present Myocardial infarct finding now present Prolonged QT interval now present ST (T wave) deviation no longer present Electronically Signed On 12-23-22 17:25:09 PRESIDING JUDGE by Juan Alberto Putnam
== END 2022-12-21 15:45 | disposition home or self-care (01) ==
LOC: ER 17:01 → ERHOLD 20:12 → 4TH 23:53
PROVIDERS: ADMIT Hospitalist; ATTEND Hospitalist
DX: U07.1 COVID-19 (principal); J20.8 Acute bronchitis due to other specified organisms; E86.0 Dehydration; I10 Essential (primary) hypertension; Z88.5 Allergy status to narcotic agent; Z88.0 Allergy status to penicillin; Z86.16 Personal history of COVID-19; Z79.82 Long term (current) use of aspirin; Z23 Encounter for immunization
CPT/HCPCS: 93005; 85025 ×2; 80048; 36415; 80053; 71045; 76770; 97116; 97161; 97530; 99285; J1100 ×2; J7040; J7030 ×2; G0378